=== PATIENT | male | born 1945 | race American Indian/Alaskan Native ===

== ENCOUNTER 2017-06-11 13:09 | Inpatient (IN) | payer MEDICARE ==
[2017-06-12 18:00] VITALS: BMI 29.9
[2017-06-12 18:50] LABS: HEMATOCRIT 30.7 % (35.0-51.0); MEAN CELL VOLUME 88.2 fl (80.0-94.0); MEAN CORPUSCULAR HEMOGLOBIN 28.8 pg (27.0-31.0); MEAN CORPUSCULAR HGB CONC 32.7 g/dL (33.0-37.0); RED CELL DISTRIBUTION WIDTH 15.1 % (11.5-14.5)
[2017-06-13] MEDS ORDERED: Pantoprazole 40 mg EC Tab PO SCH (06:30)
[2017-06-13 12:05] LABS: BASO # 0.1 K/uL (0.0-0.2); BASO % 1.1 % (0.0-2.0); EOS # 0.5 K/uL (0.0-0.7); EOS % 6.2 % (0.0-4.0); HEMATOCRIT 31.9 % (35.0-51.0); LYMPH # 1.2 K/uL (1.0-4.3); LYMPH % 15.7 % (20.0-40.0); MEAN CELL VOLUME 88.4 fl (80.0-94.0); MEAN CORPUSCULAR HGB CONC 32.8 g/dL (33.0-37.0); MEAN PLATELET VOLUME 9.4 fl (7.2-11.7); MONO # 0.6 K/uL (0.0-0.8); NEUT # 5.5 K/uL (1.8-7.0); NRBC % 0.1 % (0.0-0.0); RED CELL DISTRIBUTION WIDTH 15.3 % (11.5-14.5); WHITE BLOOD COUNT 7.9 K/uL (4.8-10.8)
[2017-06-13 12:22] LABS: PARTIAL THROMBOPLASTIN TIME 39.1 Seconds (25.6-37.1)
[2017-06-13 12:28] LABS: BLOOD UREA NITROGEN 41 mg/dl (9-20); CALCIUM 9.3 mg/dL (8.4-10.2); CARBON DIOXIDE 20 mmol/L (22-30); CHLORIDE 111 mmol/L (98-107); GFR AFRICAN-AMERICAN 38; GLUCOSE,RANDOM 159 mg/dL (75-110); MAGNESIUM 1.8 MG/DL (1.6-2.3); PHOSPHOROUS 3.4 mg/dl (2.5-4.5); POTASSIUM 4.8 MMOL/L (3.6-5.0); SODIUM 142 mmol/l (132-148)
[2017-06-13 13:06] VITALS: O2SAT 100
--- NOTE | 2017-06-13 13:28 | CT ---
PROCEDURE: CT scan brain dated 06/13/2017 HISTORY: Near syncope. History CVA COMPARISON: No prior study available for comparison TECHNIQUE: Axial computed tomography images were obtained through the head/brain without intravenous contrast. Radiation dose: Total exam DLP = mGy-cm. This CT exam was performed using one or more of the following dose reduction techniques: Automated exposure control, adjustment of the mA and/or kV according to patient size, and/or use of iterative reconstruction technique. FINDINGS: HEMORRHAGE: No acute parenchymal, subarachnoid or extra-axial hemorrhage. BRAIN: Moderate diffuse/confluent chronic white matter ischemic changes seen extending peripherally into the deep and subcortical white matter of both cerebral hemispheres. Chronic appearing small infarct left anterolateral basal ganglia. . In addition, there is a small to medium-sized right basal ganglia infarct that age-indeterminate though likely however clinical correlation with physical exam and history is recommended. Vascular calcifications both carotid siphons. Moderate to significant central volume loss evidenced by a disproportion enlargement of the ventricles as compared sulci. VENTRICLES: Dilatation of the lateral ventricles left greater than right felt to be secondary to central volume loss. There is mild asymmetry of the lateral ventricles left-sided which is slightly larger than the right however this is felt to be an anatomic variation. 4th ventricle exhibits relatively normal size CALVARIUM: There are no acute calvarial fractures. PARANASAL SINUSES: The visualized paranasal sinuses are well-developed and currently well-aerated. MASTOID AIR CELLS: Mastoid air complexes also well-developed and currently well-aerated OTHER FINDINGS: None. IMPRESSION: No acute intracranial hemorrhage. Moderate diffuse/ confluent chronic white matter ischemic changes as above. Chronic appearing small infarct left anterolateral basal ganglia. The small to medium-sized right basal ganglia age-indeterminate infarct however this is likely chronic. Clinical correlation with physical exam and history recommended. Moderate to significant central volume loss.
--- NOTE | 2017-06-13 13:57 | CP.PCM.PN ---
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 Objective - Vital Signs/Intake and Output Vital Signs (last 24 hours): Temp Pulse Resp BP Pulse Ox 98.9 F 93 H 18 138/78 100 06/13/17 11:35 06/13/17 13:05 06/13/17 13:05 06/13/17 13:05 06/13/17 13:05 - Medications Medications: Current Medications Amlodipine Besylate (Norvasc) 10 mg PO DAILY [facility] Last Admin: 06/13/17 08:39 Dose: 10 mg Apixaban (Eliquis) 5 mg PO Q12 [facility] PRN Reason: Protocol Last Admin: 06/13/17 08:39 Dose: 5 mg Aspirin (Aspirin Chewable) 81 mg PO DAILY [facility] Last Admin: 06/13/17 08:40 Dose: 81 mg Atorvastatin Calcium (Lipitor) 40 mg PO HS [facility] Last Admin: 06/12/17 21:08 Dose: 40 mg Lactic Acid (Lac-Hydrin 12% Lotion (225 G)) 1 applic TOP Q12 [facility] Last Admin: 06/13/17 08:38 Dose: 1 applic Lisinopril (Zestril) 10 mg PO DAILY [facility] Last Admin: 06/13/17 08:39 Dose: 10 mg Pantoprazole Sodium (Protonix Ec Tab) 40 mg PO 0630 [facility] Last Admin: 06/13/17 06:05 Dose: 40 mg - Labs Labs: 06/13/17 11:50 06/13/17 11:50 PT 15.7 Seconds (9.8-13.1) H 06/13/17 11:50 INR 1.5 (0.9-1.2) H 06/13/17 11:50 APTT 39.1 Seconds (25.6-37.1) H 06/13/17 11:50 - Head Exam Head Exam: ATRAUMATIC, NORMAL INSPECTION, NORMOCEPHALIC - Eye Exam Eye Exam: EOMI, Normal appearance, PERRL Pupil Exam: NORMAL ACCOMODATION - ENT Exam ENT Exam: Mucous Membranes Moist, Normal Exam - Neck Exam Neck Exam: Normal Inspection - Respiratory Exam Respiratory Exam: NORMAL BREATHING PATTERN - Cardiovascular Exam Cardiovascular Exam: REGULAR RHYTHM - GI/Abdominal Exam GI & Abdominal Exam: Soft, Normal Bowel Sounds - Rectal Exam Rectal Exam: NORMAL INSPECTION - Exam External exam: NORMAL EXTERNAL EXAM - Extremities Exam Extremities Exam: Normal Capillary Refill, Normal Inspection - Back Exam Back Exam: NORMAL INSPECTION - Neurological Exam Neurological Exam: Alert, Awake Neuro motor strength exam: Left Upper Extremity: 3, Right Upper Extremity: 3, Left Lower Extremity: 3, Right Lower Extremity: 3 - Psychiatric Exam Psychiatric exam: Normal Affect, Normal Mood - Skin Skin Exam: Dry, Normal Color Assessment and Plan - Assessment and Plan (Free Text) Assessment: Acute REhab CVA pt, ot , rec therapy
--- NOTE | 2017-06-13 14:03 | CP.PCM.PN ---
Subjective - Date & Time of Evaluation Date of Evaluation: 06/13/17 Time of Evaluation: 11:30 - Subjective Subjective: no acute complaints Objective - Vital Signs/Intake and Output Vital Signs (last 24 hours): Temp Pulse Resp BP Pulse Ox 98.9 F 93 H 18 138/78 100 06/13/17 11:35 06/13/17 13:05 06/13/17 13:05 06/13/17 13:05 06/13/17 13:05 - Medications Medications: Current Medications Amlodipine Besylate (Norvasc) 10 mg PO DAILY [facility] Last Admin: 06/13/17 08:39 Dose: 10 mg Apixaban (Eliquis) 5 mg PO Q12 [facility] PRN Reason: Protocol Last Admin: 06/13/17 08:39 Dose: 5 mg Aspirin (Aspirin Chewable) 81 mg PO DAILY [facility] Last Admin: 06/13/17 08:40 Dose: 81 mg Atorvastatin Calcium (Lipitor) 40 mg PO HS [facility] Last Admin: 06/12/17 21:08 Dose: 40 mg Lactic Acid (Lac-Hydrin 12% Lotion (225 G)) 1 applic TOP Q12 [facility] Last Admin: 06/13/17 08:38 Dose: 1 applic Lisinopril (Zestril) 10 mg PO DAILY [facility] Last Admin: 06/13/17 08:39 Dose: 10 mg Pantoprazole Sodium (Protonix Ec Tab) 40 mg PO 0630 [facility] Last Admin: 06/13/17 06:05 Dose: 40 mg - Labs Labs: 06/13/17 11:50 06/13/17 11:50 PT 15.7 Seconds (9.8-13.1) H 06/13/17 11:50 INR 1.5 (0.9-1.2) H 06/13/17 11:50 APTT 39.1 Seconds (25.6-37.1) H 06/13/17 11:50 - Head Exam Head Exam: ATRAUMATIC, NORMAL INSPECTION, NORMOCEPHALIC - Eye Exam Eye Exam: EOMI, Normal appearance, PERRL Pupil Exam: NORMAL ACCOMODATION - ENT Exam ENT Exam: Mucous Membranes Moist, Normal Exam - Neck Exam Neck Exam: Normal Inspection - Respiratory Exam Respiratory Exam: NORMAL BREATHING PATTERN - Cardiovascular Exam Cardiovascular Exam: REGULAR RHYTHM - GI/Abdominal Exam GI & Abdominal Exam: Normal Bowel Sounds Physiatry Overall Plan of Care - Overall Plan of Care Estimated Length of Stay in Weeks: 2 Rehab Impairment: Mobility, Gait, Cognition, Speech, Balance, Coordination Etiologic Diagnosis: Cerebrovascular Accident - Anticipated Interventions Physical Therapy:: Yes Occupational Therapy:: Yes Speech Therapy:: Yes Recreational Therapy:: Yes Other Anticipated Intervention:: Yes - Therapy Goals Bed Mobility: Independent Ambulation: Independent Functional Positional Changes:: Independent - Functional Outcomes Functional Outcomes: good - Discharge Plan Discharge Destination: Home
--- NOTE | 2017-06-13 14:45 | PCM.RRTMUL ---
<Citlali Lopez - Last Filed: 06/13/17 15:16> GUIDANCE SERVICES COORDINATOR Nurse Assessment - Situation GUIDANCE SERVICES COORDINATOR Responder Arrival Time:: 11:35 Location:: [address] [place] [address] Room Number:: [id number] GUIDANCE SERVICES COORDINATOR Reason for Call: Looks Sicker GUIDANCE SERVICES COORDINATOR Called By: RN - IV IV Inserted during GUIDANCE SERVICES COORDINATOR?: No - Respiratory Oxygen Delivery Method:: Room Air Received Nebulizer Treatments:: No Was the Patient Ventilated with Bag/Mask 100% O2?: No Secretions Suctioned?: No Was the Patient Intubated?: No Was the Patient Placed on a Ventilator?: No - Diagnostic Test Ordered EKG:: Yes - Stat Labs Ordered GUIDANCE SERVICES COORDINATOR Stat Labs Ordered:: CBC, BMP, PT/PTT, TROPONIN GUIDANCE SERVICES COORDINATOR Other Labs Ordered:: Mg, Ph, Head CT w/o contrast CPR started during GUIDANCE SERVICES COORDINATOR?: No - Vital Signs Blood Pressure:: 138/78 Pulse Rate:: 96 Respiratory Rate:: 13 Temperature:: 98.2 F Oxygen Saturation:: 97 - [place] Coma Scale Coma Scale Eye Opening:: Spontaneous Coma Scale Motor:: Obeys Commands Movement Coma Scale Verbal:: Oriented Coma Scale Total:: 15 - Time GUIDANCE SERVICES COORDINATOR Ended Time GUIDANCE SERVICES COORDINATOR Ended:: 11:45 - Vital Signs at end of GUIDANCE SERVICES COORDINATOR Blood Pressure:: 149/82 Pulse Rate:: 95 Respiratory Rate:: 18 Temperature:: 98.2 F O2 Sat by Pulse Oximetry:: 95 - Recommendations 5) GUIDANCE SERVICES COORDINATOR Level of Care Recommendations: Remain in current setting 6) Notifications: Attending Physician - A) Initial Vital Signs: Temperature: 98.2 F Pulse Rate: 96 Respiratory Rate: 13 Oxygen Saturation: 97 Finger Stick Blood Glucose: 170 - B) Neurological Status (Select all that apply): Alert, Responsive, Oriented, Follows Commands - C) Respiratory Oxygen Delivery Method: Room Air - Constitutional Appears: Well, No Acute Distress - Head Head Exam: ATRAUMATIC, NORMOCEPHALIC - Eyes Eye Exam: EOMI, Normal appearance, PERRL. absent: Nystagmus - Respiratory Exam Respiratory Exam: Clear to Ausculation Bilateral, NORMAL BREATHING PATTERN. absent: Rales, Rhonchi, Wheezes - Cardiovascular Exam Cardiovascular Exam: REGULAR RHYTHM, +S1, +S2. absent: Murmur - GI/Abdominal Exam GI & Abdominal Exam: Soft, Normal Bowel Sounds. absent: Tenderness, Organomegaly - Neurological Exam Neurological Exam: Alert, Awake, Oriented x3 Additional exam: L arm and L leg weakness 4/5. Delayed speech. - Extremities Exam Extremities Exam: Normal Inspection. absent: Calf Tenderness, Joint Swelling, Pedal Edema Plan - A. End of GUIDANCE SERVICES COORDINATOR Vital Signs: Blood Pressure: 149/82 Pulse Rate: 95 Respiratory Rate: 18 Temperature: 98.2 F O2 Sat by Pulse Oximetry: 95 - B. Assessment of Findings&Treatment Plan GUIDANCE SERVICES COORDINATOR code called by RN for patient looks sick. 72 yo male patient with PMH of HTN,DM, Afib, CVA and CKD that was working on PT when suddenly becomes unresponsive with R eye fixed, 1 nbnb vomit, diaphoresis, patient reports feeling dizzy. Denies LOC, chest pain, palpitations, sob, headache, no fever, numbness, loss of vission, no abdominal pain or any other pain. Impression: Presyncope and vomiting in S/P CVA patient. EKG Acutecheck cbc, bmp, pt/ptt, Mg, Phosphorus troponins Head ct w/o contrast. <Sravani Vasquez - Last Filed: 06/13/17 19:04> Attending/Attestation - Attestation I have personally seen and examined this patient.: Yes I have fully participated in the care of the patient.: Yes I have reviewed all pertinent clinical information, including history, physical exam and plan: Yes Notes (Text): 06/13/17 19:04 seen and examined with resident, agree [facility] findings and plan as above.
[2017-06-13 15:08] VITALS: RESP 18
[2017-06-13 18:12] VITALS: BP 150/93; PULSE 105; TEMP 97.3
[2017-06-13] MEDS ORDERED: Metoprolol Succinate 25 mg XL Tab PO SCH (21:00)
--- NOTE | 2017-06-13 22:43 | CON ---
DATE: PODIATRY CONSULTATION HISTORY OF PRESENT ILLNESS: The patient is a 72-year-old black male admitted for acute inpatient rehab program. At present, the patient is doing fine, diagnosis of acute CVA, ICD code 01.1, with a past history of hypertension, diabetes, atrial fibrillation, urinary retention, left hip pain, and hyponatremia. SOCIAL HISTORY: No history of drinking. No history of smoking. ALLERGIES: NO KNOWN ALLERGIES. FUNCTIONAL STATUS: The patient was independent with most activities previously at home. REVIEW OF SYSTEMS: The patient with mild left-sided weakness. No other acute complaints at present. PHYSICAL EXAMINATION: VITAL SIGNS: Stable. NECK: Supple. CHEST: Symmetrical. HEART: Sounds S1 and S2. ABDOMEN: Benign. EXTREMITIES: No clubbing, cyanosis, or edema. NEUROLOGIC: The patient is alert and tired. Cranial nerves II-XII intact, following commands. Left upper and left lower extremity: Tone normal, range of motion is functional, and muscle strength is 3+. Right upper and right lower extremity: Tone normal, range of motion is functional, and muscle strength is good. Sensation to pinprick and light touch intact. Deep tendon reflexes 2+ bilaterally. Other systems are negative. IMPRESSION: Acute cerebrovascular accident, ICD code of 01.1; hypertension; diabetes; atrial fibrillation; urinary incontinence; and hyponatremia. PLAN: For physical, occupational, recreational, and speech therapy for range of motion strengthening, transfers, ambulation, and gait training. Estimated length of stay for this patient is 2 to 2-1/2 weeks. Anticipated discharge plan is to go back to live at home with supportive services. Treatment plan is for physical and occupational therapy and speech therapy. Goals are for modified independence, independence with bed mobility, independence with supervision for functional positional changes, independence with supervision for simple transfers, supervision and contact guard for complex transfers, and independence with supervision for ambulation with assistive devices, and supervision and contact guard for elevation. Walker Deluna MD
--- NOTE | 2017-06-14 03:13 | CON ---
NEUROLOGY CONSULTATION REASON FOR CONSULTATION: Recent stroke and episode of passing out. HISTORY OF PRESENTING ILLNESS: The patient is a 72-year-old male, who was admitted in the rehabilitation facility in [facility] after apparently he had a stroke. The patient was admitted in [facility] after he had weakness on the left side of the body. The patient also had difficulty with speaking. The patient had MRI of the brain done in [facility], which shows acute to subacute infarct involving the right garcia radiata and upper basal ganglia corresponding to the area of low density seen on the CT. The patient had a complete workup done, and he was transferred to [facility] for rehabilitation. While in the rehabilitation unit this morning as he was getting therapy, he felt lightheaded and he passed out. He did not have any chest pain or palpitation. He was unconscious for about 2 minutes. He had no abnormal movements noted. At the moment, he feels fine. REVIEW OF SYSTEMS: Denies any headache, dizziness, chest pain, shortness of breath, abdominal pain, constipation, diarrhea, dysuria, pyuria, cough, or sputum production. PAST MEDICAL HISTORY: Includes hypercholesterolemia and hypertension. MEDICATIONS: His medications at home included lisinopril, Protonix, Lipitor, aspirin, Eliquis, and Norvasc. He is on Eliquis for atrial fibrillation. ALLERGIES: No known drug allergies. SOCIAL HISTORY: Denies smoking, use of alcohol, or use of any illicit drugs. FAMILY HISTORY: Reviewed and noncontributory. PHYSICAL EXAMINATION: GENERAL: The patient is an elderly male lying on the bed, in no acute distress. VITAL SIGNS: His blood pressure is 149/82, heart rate is 95 per minute, breathing at the rate of 16 per minute, and temperature is 98.2 degrees Fahrenheit. HEENT: Head is normocephalic and atraumatic. NECK: Supple. There are no carotid bruits. LUNGS: Clear. CARDIOVASCULAR: S1 and S2 audible. No murmurs. ABDOMEN: Soft and nontender. Bowel sounds present. NEUROLOGIC: Mental status; the patient is awake, alert and oriented to time, place and person. His speech is fine. Naming and repetition is normal. Memory and inclination are intact. Cranial nerve examination; pupils are 3 mm bilaterally reactive to light. Visual naranjo are full. Extraocular movements are intact. There is slight decrease in nasolabial fold on the left side. Palate is upgoing bilaterally and tongue is midline. Motor examination; tone is normal. There is mild left-sided pronator drift. Otherwise, power is 4/5 all over. Reflexes 1+ and symmetrical. Plantars upgoing on the left side and downgoing on the right side. Cerebellar examination; [id number] shows no dysmetria. Sensory examination intact to soft touch and pinprick. Gait is deferred at the moment. LABORATORY DATA: Reviewed shows WBC of 7.9, hemoglobin 10.5, hematocrit 31.9, and platelets of 316. Sodium is 142, potassium 4.8, chloride 111, carbon dioxide contained 20, BUN of 41, creatinine of 2.1, and glucose of 159. He had repeat CT head done after he passed out this morning, and it showed no acute intracranial hemorrhage, moderate diffuse chronic white matter ischemic changes, chronic-appearing small infarct, left anterolateral basal ganglia. No hemorrhage. IMPRESSION: 1. Syncope, rule out any seizure versus cardiac arrhythmia. 2. Cerebrovascular accident. RECOMMENDATIONS: 1. The patient had an electroencephalogram done, which is normal. 2. The patient to have cardiac monitoring to rule out any cardia arrhythmias. 3. The patient is to be continued on anticoagulation for his underlying atrial fibrillation and recent stroke. 4. The patient also to be continued on statin. 5. The patient is apparently being transferred to an acute care facility for cardiac monitoring, and once the patient is cleared from cardiology stand point, he may be transferred back to the acute rehab care service. Thank you for the opportunity to participate in the care of this patient. Neri Larios MD
--- NOTE | 2017-06-14 09:13 | CARD ---
APPROVED REPORT EKG Measurement Heart [id number] <Conclusion> Atrial flutter with variable AV block Cannot rule out Inferior infarct, age undetermined Abnormal ECG
--- NOTE | 2017-06-14 09:18 | CARD ---
APPROVED REPORT EKG Measurement Heart [id number] <Conclusion> Atrial Flutter Incomplete right bundle branch block T wave abnormality, consider inferior ischemia Prolonged QT Abnormal ECG
--- NOTE | 2017-06-14 13:58 | EEG ---
DATE: INTRODUCTION: This is a digitally recorded EEG monitoring using standard EEG montages. Background rhythm of the EEG shows a background activity of 8 Hz alpha activity in parieto-occipital region. The EEG activity is bilaterally symmetrical and synchronized. There is attenuation of the background activity on eye opening. There is moderate amount of myogenic artifact noticed in this EEG recording. Abnormal potential, no spike, sharp waves or focal slowing was seen. Photic stimulation and hyperventilation. Photic stimulation did not reveal any abnormality. Hyperventilation was not performed. IMPRESSION: Normal electroencephalogram. No epileptiform activity seen in this electroencephalogram recording. Neri Larios MD
--- NOTE | 2017-06-17 09:46 | DS ---
REASON FOR ADMISSION: This is a 72 years old -[place] male, was admitted to acute rehabilitation unit at [facility], post discharge from [facility] for acute CVA. COURSE OF HOSPITALIZATION: Patient was admitted to acute rehab floor. Patient has been on physical therapy and he was participating in physical therapy for more than an hour on today. Patient started to become diaphoretic and obtunded and he vomited once. Blood work and EKG was done that showed that the patient has atrial flutter with heart rate of about 90 per minute. Patient also found to have elevation of BUN and creatinine. Patient was discharged from acute rehabilitation unit to emergency room for close observation and readmitting patient to telemetry floor with Cardiology and Neurology evaluation. FINAL DIAGNOSES: 1. Acute cerebrovascular accident with left-sided hemiparesis. 2. Atrial flutter with rapid ventricular rate. 3. Hypertension. 4. Near syncope. Speedy Martinez MD
== END 2017-06-13 19:30 | disposition short-term general hospital (02) | DRG 57 ==
PROVIDERS: ADMIT Internal Medicine; ATTEND Internal Medicine
PROC: F07Z9FZ Gait Training/Functional Ambulation Treatment using Assistive, Adaptive, Supportive or Protective Equipment (ICD-10-PCS; principal; 2017-06-12)
PROC: F06Z6ZZ Communicative/Cognitive Integration Skills Treatment (ICD-10-PCS; 2017-06-12)
PROC: F08Z4ZZ Home Management Treatment (ICD-10-PCS; 2017-06-12)
DX: I69.354 Hemiplegia and hemiparesis following cerebral infarction affecting left non-dominant side (principal); E87.1 Hypo-osmolality and hyponatremia; I48.91 Unspecified atrial fibrillation; E11.9 Type 2 diabetes mellitus without complications; I69.328 Other speech and language deficits following cerebral infarction; I10 Essential (primary) hypertension; R55 Syncope and collapse; R47.9 Unspecified speech disturbances; R32 Unspecified urinary incontinence; E78.00 Pure hypercholesterolemia, unspecified

== ENCOUNTER 2017-06-13 18:48 | Inpatient (IN) | payer MEDICARE ==
--- NOTE | 2017-06-13 19:29 | ED PDOC ---
Syncope/Near Syncope/Dizziness Time Seen by Provider: 06/13/17 18:57 Chief Complaint (Nursing): Syncope Chief Complaint (Provider): Syncope History Per: Patient, Other (Witnesses from rehab) History/Exam Limitations: no limitations Onset/Duration Of Symptoms: Mins (Prior to arrival) Current Symptoms Are (Timing): Gone Now Additional Complaint(s): Nilesh is a 72 y/o male who was transferred to the ED from rehab due to witnessed syncopal episode lasting 2-3 seconds. No seizure activity. Patient denies headache. No new weakness, pain, or palpitations. Patient is s/p CVA and has a history of atrial fibrillation. Of note, patient seen by Neurologist while in rehab with EEG and CT Head, revealing no acute changes. PMD: Speedy Martinez Past Medical History Reviewed: Historical Data, Nursing Documentation, Vital Signs Vital Signs: Last Vital Signs Temp 97.8 F 06/13/17 19:00 Pulse 94 H 06/13/17 19:00 Resp 18 06/13/17 19:00 BP 150/90 06/13/17 19:00 Pulse Ox 99 06/13/17 19:00 - Medical History PMH: Atrial Fibrillation, CVA, HTN, Chronic Kidney Disease - Family History Family History: States: Unknown Family Hx - Home Medications Home Medications: Ambulatory Orders Medication Instructions Recorded Aspirin [Aspirin Chewable] 81 mg PO DAILY 06/11/17 Atorvastatin [Lipitor] 40 mg PO HS 06/11/17 Pantoprazole Sodium [Protonix] 40 mg PO 0630 06/11/17 amLODIPine [Norvasc] 10 mg PO DAILY 06/11/17 Apixaban [Eliquis] 5 mg PO Q12 06/12/17 Lisinopril [Zestril] 10 mg PO DAILY 06/12/17 - Allergies Allergies/Adverse Reactions: Allergies Allergy/AdvReac Type Severity Reaction Status Date / Time No Known Allergies Allergy Verified 06/12/17 17:54 Review of Systems ROS Statement: Except As Marked, All Systems Reviewed And Found Negative Cardiovascular: Negative for: Palpitations Musculoskeletal: Negative for: Other (Pain) Neurological: Positive for: Other (Witnessed syncopal episode). Negative for: Weakness (new), Seizures, Headache Physical Exam - Reviewed Nursing Documentation Reviewed: Yes Vital Signs Reviewed: Yes - Physical Exam Appears: Positive for: Non-toxic, No Acute Distress Head Exam: Positive for: ATRAUMATIC, NORMAL INSPECTION, NORMOCEPHALIC Skin: Positive for: Normal Color, Warm, Dry Eye Exam: Positive for: EOMI, Normal appearance, PERRL Neck: Positive for: Normal, Painless ROM Cardiovascular/Chest: Positive for: Regular Rate, Rhythm. Negative for: Murmur Respiratory: Positive for: Normal Breath Sounds. Negative for: Accessory Muscle Use, Respiratory Distress Gastrointestinal/Abdominal: Positive for: Normal Exam, Soft. Negative for: Tenderness Back: Positive for: Normal Inspection. Negative for: Vertebral Tenderness Extremity: Positive for: Normal ROM. Negative for: Tenderness, Deformity, Swelling Neurologic/Psych: Positive for: Alert (awake), Oriented, Other (Left sided weakness due to old CVA) - Laboratory Results Result Diagrams: 06/13/17 19:21 - ECG O2 Sat by Pulse Oximetry: 99 (RA) Pulse Ox Interpretation: Normal Medical Decision Making Medical Decision Making: Time: 18:57 Impression: Syncope Initial Plan: --CMP --Troponin I --CBC --EKG --Admit to hospital routine: Observation in telemetry for syncope, under the care of Dr. Speedy Martinez. Scribe Attestation: Documented by Jess Nevarez, acting as a scribe for Rian Narvaez MD Provider Scribe Attestation: All medical record entries made by the Scribe were at my direction and personally dictated by me. I have reviewed the chart and agree that the record accurately reflects my personal performance of the history, physical exam, medical decision making, and the department course for this patient. I have also personally directed, reviewed, and agree with the discharge instructions and disposition. Disposition - Clinical Impression Clinical Impression: Syncope - Patient ED Disposition Is Patient to be Admitted: Yes - Disposition Disposition Time: 19:15 Condition: FAIR - Pt Status Changed To: Hospital Disposition Of: Observation - POA Present On Arrival: None
[2017-06-13 19:34] LABS: BASO # 0.1 K/uL (0.0-0.2); BASO % 0.7 % (0.0-2.0); EOS # 0.4 K/uL (0.0-0.7); EOS % 3.7 % (0.0-4.0); LYMPH # 0.9 K/uL (1.0-4.3); LYMPH % 8.7 % (20.0-40.0); MEAN CELL VOLUME 88.7 fl (80.0-94.0); MEAN CORPUSCULAR HEMOGLOBIN 28.7 pg (27.0-31.0); MEAN CORPUSCULAR HGB CONC 32.3 g/dL (33.0-37.0); MEAN PLATELET VOLUME 9.7 fl (7.2-11.7); MONO # 0.6 K/uL (0.0-0.8); MONO % 5.3 % (0.0-10.0); NEUT # 8.7 K/uL (1.8-7.0); NEUT % 81.6 % (50.0-75.0); NRBC % 0.1 % (0.0-0.0); PLATELET COUNT 312 K/uL (130-400); RED CELL DISTRIBUTION WIDTH 15.5 % (11.5-14.5); WHITE BLOOD COUNT 10.7 K/uL (4.8-10.8)
[2017-06-13 21:03] LABS: ALB/GLOB RATIO 0.8 (1.0-2.1); ALKALINE PHOSPHATASE 95 U/L (38-126); ALT/SGPT 40 U/L (21-72); AST/SGOT 51 U/L (17-59); BILIRUBIN,TOTAL 0.7 mg/dl (0.2-1.3); BLOOD UREA NITROGEN 40 mg/dl (9-20); CALCIUM 8.7 mg/dL (8.4-10.2); CARBON DIOXIDE 18 mmol/L (22-30); GFR AFRICAN-AMERICAN 38; GLUCOSE,RANDOM 156 mg/dL (75-110); POTASSIUM 5.1 MMOL/L (3.6-5.0); SODIUM 140 mmol/l (132-148); TOTAL PROTEIN 8.5 G/DL (6.3-8.2)
[2017-06-13 21:39] LABS: EOSINOPHIL 3 % (0-7); NEUTROPHIL 77 % (42-75); TOTAL CELLS COUNTED 100
[2017-06-13 21:45] LABS: CHLORIDE 111 mmol/L (98-107)
[2017-06-14] MEDS: Sodium Chloride 0.9% 1,000 ML IV SCH ×2 (00:06→16:44)
[2017-06-14] MEDS: Pantoprazole 40 mg EC Tab PO SCH (05:59)
[2017-06-14 06:55] LABS: ALB/GLOB RATIO 0.8 (1.0-2.1); ALKALINE PHOSPHATASE 98 U/L (38-126); ALT/SGPT 42 U/L (21-72); AST/SGOT 41 U/L (17-59); BILIRUBIN,TOTAL 0.5 mg/dl (0.2-1.3); BLOOD UREA NITROGEN 38 mg/dl (9-20); CALCIUM 9.3 mg/dL (8.4-10.2); CARBON DIOXIDE 19 mmol/L (22-30); CHLORIDE 112 mmol/L (98-107); CHOLESTEROL 142 mg/dL (0-199); GFR AFRICAN-AMERICAN 38; GLUCOSE,RANDOM 127 mg/dL (75-110); POTASSIUM 4.4 MMOL/L (3.6-5.0); SODIUM 144 mmol/l (132-148); TOTAL PROTEIN 8.5 G/DL (6.3-8.2)
[2017-06-14 07:06] LABS: HEMATOCRIT 30.3 % (35.0-51.0); MEAN CELL VOLUME 91.6 fl (80.0-94.0); MEAN CORPUSCULAR HEMOGLOBIN 30.4 pg (27.0-31.0); MEAN CORPUSCULAR HGB CONC 33.1 g/dL (33.0-37.0); RED CELL DISTRIBUTION WIDTH 15.3 % (11.5-14.5); WHITE BLOOD COUNT 8.1 K/uL (4.8-10.8)
[2017-06-14 07:24] LABS: THYROID STIMULATING HORMONE 1.86 mIU/ML (0.46-4.68)
--- NOTE | 2017-06-14 10:53 | CP.PCM.CON ---
History of Present Illness - History of Present Illness History of Present Illness: THE PATIENT IS A 72 YEAR OLD MALE WITH A HISTORY OF ATRIAL FIBRILLATION, HYPERTENSION, HYPERLIPIDEMIA AND DM. HE HAD A RECENT CVA WITH LEFT SIDED WEAKNESS AND WAS ADMITTED TO [place] [facility] [place] AND WAS DISCHARGED TO [facility]. HE WAS AT REHAB YESTERDAY AND HAD WHAT WAS WITNESSED LOC FOR ABOUT A MINUTE AND A HALF ACCORDING TO THE REHAB STAFF AND HE WAS SENT TO THE ER AND ADMITTED TO ON TELEMETRY. UPON QUESTIONING, THE PATIENT TELLS ME THAT HE DID NOT HAVE A TOTAL LOC BUT WAS WEAK AND FELL BUT BUT THIS IS IN CONTRAST TO THE WITNESSED EPISODE BY THE REHAB STAFF. HE DENIES CHEST PAIN OR PALPITATIONS. CARDIOLOGY WAS ASKED TO EVALUATE AND FOLLOW. Past Patient History - Past Medical History & Family History Past Medical History?: Yes - Past Social History Smoking Status: Never Smoked - CARDIAC Hx Cardiac Disorders: Yes Hx Atrial Fibrillation: Yes Hx Hypertension: Yes - PULMONARY Hx Respiratory Disorders: No - NEUROLOGICAL Hx Neurological Disorder: Yes HX Cerebrovascular Accident: Yes - HEENT Hx HEENT Problems: Yes Other/Comment: Pt wears glasses - RENAL Hx Chronic Kidney Disease: Yes - ENDOCRINE/METABOLIC Hx Endocrine Disorders: Yes Hx Diabetes Mellitus Type 2: Yes - HEMATOLOGICAL/ONCOLOGICAL Hx Blood Disorders: No Hx AIDS: No Hx Human Immunodeficiency Virus (HIV): No - INTEGUMENTARY Hx Dermatological Problems: No - MUSCULOSKELETAL/RHEUMATOLOGICAL Hx Musculoskeletal Disorders: Yes Hx Falls: Yes Other/Comment: Chronic left hip pain - GASTROINTESTINAL Hx Gastrointestinal Disorders: No - GENITOURINARY/GYNECOLOGICAL Hx Genitourinary Disorders: Yes Hx Incontinence: Yes - PSYCHIATRIC Hx Psychophysiologic Disorder: No Hx Substance Use: No - SURGICAL HISTORY Hx Surgeries: No - ANESTHESIA Hx Anesthesia: Yes Hx Anesthesia Reactions: No Hx Malignant Hyperthermia: No Meds Allergies/Adverse Reactions: Allergies Allergy/AdvReac Type Severity Reaction Status Date / Time No Known Allergies Allergy Verified 06/12/17 17:54 - Medications Medications: Current Medications Apixaban (Eliquis) 2.5 mg PO Q12 [facility] PRN Reason: Protocol Last Admin: 06/14/17 09:05 Dose: 2.5 mg Aspirin (Aspirin Chewable) 81 mg PO DAILY [facility] Last Admin: 06/14/17 09:06 Dose: 81 mg Atorvastatin Calcium (Lipitor) 40 mg PO HS [facility] Last Admin: 06/13/17 23:55 Dose: 40 mg Sodium Chloride (Sodium Chloride 0.9%) 1,000 mls @ 60 mls/hr IV .[id number] [facility] Stop: 06/14/17 23:50 Last Admin: 06/14/17 00:06 Dose: 60 mls/hr Lisinopril (Zestril) 5 mg PO DAILY@1400 [facility] Metoprolol Tartrate (Lopressor) 12.5 mg PO Q12 [facility] Last Admin: 06/14/17 09:06 Dose: 12.5 mg Pantoprazole Sodium (Protonix Ec Tab) 40 mg PO 0630 [facility] Last Admin: 06/14/17 05:59 Dose: 40 mg Physical Exam - Respiratory Exam Respiratory Exam: Clear to Auscultation Bilateral - Cardiovascular Exam Cardiovascular Exam: Irregular Rhythm, +S1, +S2 - Additional Findings Additional findings: APPRAISER LAND ATRIAL FLUTTER AT VARIABLE RATES AND GOOD VENTRICULAR RATES NO 12 LEAD EKG IN [facility] TROPONIN NEGATIVE X 2 Results - Vital Signs Recent Vital Signs: Last Vital Signs Temp 97.8 F 06/14/17 05:10 Pulse 94 H 06/14/17 09:06 Resp 18 06/14/17 05:10 BP 164/96 H 06/14/17 09:06 Pulse Ox 100 06/14/17 05:10 - Labs Result Diagrams: 06/14/17 05:30 06/14/17 05:30 Labs: Laboratory Results - last 24 hr 06/13/17 06/13/17 06/13/17 19:21 20:40 23:19 WBC 10.7 RBC 3.50 L Hgb 10.0 L Hct 31.0 L MCV 88.7 MCH 28.7 MCHC 32.3 L RDW 15.5 H Plt Count 312 MPV 9.7 Neut % (Auto) 81.6 H Lymph % (Auto) 8.7 L Elliott % (Auto) 5.3 Eos % (Auto) 3.7 Baso % (Auto) 0.7 Neut # 8.7 H Lymph # 0.9 L Elliott # 0.6 Eos # 0.4 Baso # 0.1 Neutrophils % (Manual) 77 H Band Neutrophils % 2 Lymphocytes % (Manual) 12 L Monocytes % (Manual) 6 Eosinophils % (Manual) 3 Platelet Estimate Normal Hypochromasia (manual) Slight Poikilocytosis (manual Slight Anisocytosis (manual) Moderate Microcytosis (manual) Slight Tear Drop Cells Slight Sodium 140 Potassium 5.1 H Chloride 111 H Carbon Dioxide 18 L Anion Gap 17 BUN 40 H Creatinine 2.1 H Est GFR ( Amer) 38 Est GFR (Non-Af Amer) 31 POC Glucose (mg/dL) 171 H Random Glucose 156 H Calcium 8.7 Total Bilirubin 0.7 AST 51 ALT 40 Alkaline Phosphatase 95 Troponin I < 0.0120 Total Protein 8.5 H Albumin 3.8 Globulin 4.8 H Albumin/Globulin Ratio 0.8 L Triglycerides Cholesterol LDL Cholesterol Direct HDL Cholesterol TSH 3rd Generation 06/14/17 06/14/17 06/14/17 05:12 05:30 05:30 WBC 8.1 RBC 3.31 L Hgb 10.0 L Hct 30.3 L MCV 91.6 D MCH 30.4 MCHC 33.1 RDW 15.3 H Plt Count 312 MPV Neut % (Auto) Lymph % (Auto) Elliott % (Auto) Eos % (Auto) Baso % (Auto) Neut # Lymph # Elliott # Eos # Baso # Neutrophils % (Manual) Band Neutrophils % Lymphocytes % (Manual) Monocytes % (Manual) Eosinophils % (Manual) Platelet Estimate Hypochromasia (manual) Poikilocytosis (manual Anisocytosis (manual) Microcytosis (manual) Tear Drop Cells Sodium 144 Potassium 4.4 Chloride 112 H Carbon Dioxide 19 L Anion Gap 17 BUN 38 H Creatinine 2.1 H Est GFR ( Amer) 38 Est GFR (Non-Af Amer) 31 POC Glucose (mg/dL) 131 H Random Glucose 127 H Calcium 9.3 Total Bilirubin 0.5 AST 41 ALT 42 Alkaline Phosphatase 98 Troponin I < 0.0120 Total Protein 8.5 H Albumin 3.8 Globulin 4.7 H Albumin/Globulin Ratio 0.8 L Triglycerides 82 Cholesterol 142 LDL Cholesterol Direct 74 HDL Cholesterol 26 L TSH 3rd Generation 1.86 Assessment & Plan - Assessment and Plan (Free Text) Assessment: RECENT CVA WITH LEFT SIDED WEAKNESS WITNESSED SYNCOPE YESTERDAY ON [facility]UTE [facility] HISTORY OF ATRIAL FIBRILLATION-NOW IN ATRIAL FLUTTER HYPERTENSION HYPERLIPIDEMIA Plan: THE PATIENT WAS ADMITTED TO 4N ON TELEMETRY CONTINUE ELIQUIS, ASPIRIN, METOPROLOL, LISINOPRIL AND ATORVASTATIN 12 LEAD AND ECHOCARDIOGRAM NEUROLOGY TO SEE
--- NOTE | 2017-06-14 19:22 | CARD ---
APPROVED REPORT EXAM: Two-dimensional and M-mode echocardiogram with Doppler and color Doppler. Other Information Quality : GoodRhythm : NSR INDICATION Abnormal EKG/Arrhythmia 2D DIMENSIONS IVSd0.81 (0.7-1.1cm)LVDd3.75 (3.9-5.9cm) LVOT Diameter2.14 (1.8-2.4cm)PWd1.19 (0.7-1.1cm) IVSs1.39 (0.8-1.2cm)LVDs3.16 (2.5-4.0cm) FS (%) 15.8 %PWs1.44 (0.8-1.2cm) M-Mode DIMENSIONS Left Atrium (MM)4.26 (2.5-4.0cm)IVSd0.97 (0.7-1.1cm) Aortic Root3.32 (2.2-3.7cm)LVDd4.56 (4.0-5.6cm) Aortic Cusp Exc.2.32 (1.5-2.0cm)PWd1.12 (0.7-1.1cm) IVSs1.47 cmFS (%) 25 % LVDs3.41 (2.0-3.8cm)PWs1.41 cm Mitral Valve E/A ratio0.0 TDI E/Lateral E'0.0E/Medial E'0.0 Pulmonary Valve PV Peak Jujfbkia22.0cm/s LEFT VENTRICLE The left ventricle is normal size. There is normal left ventricular wall thickness. The left ventricular function is normal. The left ventricular ejection fraction is 50-55%. There is normal LV segmental wall motion. Transmitral Doppler flow pattern is Grade IV-fixed restrictive diastolic dysfunction. No left ventricle thrombus noted on this study. There is no ventricular septal defect visualized. There is no left ventricular aneurysm. There is no mass noted in the left ventricle. RIGHT VENTRICLE The right ventricle is normal size. There is normal right ventricular wall thickness. The right ventricular systolic function is normal. ATRIA The left atrium is mildly dilated. The right atrium size is normal. The interatrial septum is intact with no evidence for an atrial septal defect. AORTIC VALVE The aortic valve is mildly sclerotic. No aortic regurgitation is present. There is no aortic valvular stenosis. There is no aortic valvular vegetation. MITRAL VALVE Mitral annular calcification is moderate to severe. The posterior leaflet is calcified. There is no evidence of mitral valve prolapse. There is no mitral valve stenosis. There is no mitral valve regurgitation noted. TRICUSPID VALVE The tricuspid valve is normal in structure and function. There is no tricuspid valve regurgitation noted. There is no tricuspid valve prolapse or vegetation. There is no tricuspid valve stenosis. PULMONIC VALVE The pulmonary valve is normal in structure and function. There is no pulmonic valvular regurgitation. There is no pulmonic valvular stenosis. GREAT VESSELS The aortic root is normal in size. The ascending aorta is normal in size. The IVC is normal in size and collapses >50% with inspiration. PERICARDIAL EFFUSION The pericardium appears normal. There is no pleural effusion. <Conclusion> Normal LV Systolic Function Aortic Valve Sclerosis Mild Left Atria Enlargement Restrictive Diastolic Filling Pattern
--- NOTE | 2017-06-14 19:54 | CARD ---
APPROVED REPORT EKG Measurement Heart [id number] [id number] <Conclusion> Atrial Flutter
[2017-06-15] MEDS: Pantoprazole 40 mg EC Tab PO SCH (06:12)
--- NOTE | 2017-06-15 16:23 | CP.PCM.PN ---
Subjective - Date & Time of Evaluation Date of Evaluation: 05/15/17 Time of Evaluation: 15:00 - Subjective Subjective: THE PATIENT DENIES CHEST PAIN, SOB OR FURTHER SYNCOPE Objective - Vital Signs/Intake and Output Vital Signs (last 24 hours): Temp Pulse Resp BP Pulse Ox 97.5 F L 96 H 18 112/72 100 06/15/17 12:42 06/15/17 14:00 06/15/17 12:42 06/15/17 14:00 06/15/17 12:42 - Medications Medications: Current Medications Apixaban (Eliquis) 2.5 mg PO Q12 [facility] PRN Reason: Protocol Last Admin: 06/15/17 09:23 Dose: 2.5 mg Aspirin (Aspirin Chewable) 81 mg PO DAILY [facility] Last Admin: 06/15/17 09:21 Dose: 81 mg Atorvastatin Calcium (Lipitor) 40 mg PO HS [facility] Last Admin: 06/14/17 21:34 Dose: 40 mg Lisinopril (Zestril) 5 mg PO DAILY@1400 [facility] Last Admin: 06/15/17 14:00 Dose: 5 mg Metoprolol Tartrate (Lopressor) 12.5 mg PO Q12 [facility] Last Admin: 06/15/17 09:23 Dose: 12.5 mg Pantoprazole Sodium (Protonix Ec Tab) 40 mg PO 0630 [facility] Last Admin: 06/15/17 06:12 Dose: 40 mg - Labs Labs: 06/14/17 05:30 06/14/17 05:30 - Respiratory Exam Respiratory Exam: Clear to Ausculation Bilateral - Cardiovascular Exam Cardiovascular Exam: Irregular Rhythm, +S1, +S2 - Additional Findings Additional findings: 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
--- NOTE | 2017-06-15 17:58 | PN ---
DATE: 06/15/2017 SUBJECTIVE: The patient is see today, 06/15/2017. He is not in any cardiopulmonary distress and no further episodes of syncope and presyncope. PHYSICAL EXAMINATION: VITAL SIGNS: Blood pressure 112/72, temperature 97.5, respiratory rate 18, pulse 96. HEENT: Pupils are equal and reactive to light. Normal-appearing mucosa of the conjunctivae, oropharynx, and nasal membrane mucosa. NECK: Supple. No JVD. No carotid bruit. No lymph node. No thyromegaly. CHEST AND LUNGS: Bilateral symmetrical expansion. Good air exchange. No rales. No rhonchi. CARDIOVASCULAR SYSTEM: PMI not localized. S1 and S2. No additional heart sounds. ABDOMEN: Normoactive bowel sounds. No tenderness. No organomegaly. No masses. EXTREMITIES: No cyanosis. No clubbing. No edema. SOCIAL ORGANIZATION PROFESSOR: Alert, awake, and oriented x2 and the patient has slight left-sided hemiparesis. ASSESSMENT: 1. Presyncope. 2. Atrial flutter fibrillation. 3. Status post cerebrovascular accident. 4. Hypertension. PLAN: Follow recommendations of urology and cardiology. Repeat EKG. Continue current management. Speedy Martinez MD
--- NOTE | 2017-06-15 23:37 | HP ---
This is a late entry for history and physical done on 06/14/2017. HISTORY OF PRESENT ILLNESS: The patient is a 72-year-old male who was at acute rehabilitation in [facility]. The patient sustained an attack of diaphoresis and lethargy followed by vomiting after an hour of physical therapy on the day of admission. The patient was evaluated and found to be in atrial flutter. Subsequently, the patient was transferred to emergency room for evaluation and admitted to telemetry floor for further management. The patient denied having any chest pain or shortness of breath at that time. The patient denied having any previous similar episodes. Other review of systems is negative. ALLERGIES: NO KNOWN ALLERGIES. MEDICATIONS: Amlodipine 10 mg once a day, Protonix 40 mg daily, lisinopril 10 mg daily, atorvastatin 40 mg daily, aspirin 81 mg daily, Eliquis 5 mg q.12h. SOCIAL HISTORY: Denied smoking, EtOH, or substance abuse. FAMILY HISTORY: Noncontributory. PAST MEDICAL HISTORY: CVA with left-sided hemiparesis; hypertension; atrial fibrillation, on anticoagulation. PHYSICAL EXAMINATION: GENERAL: The patient is in bed, comfortable, not in any cardiopulmonary distress at the time of this examination. VITAL SIGNS: Blood pressure was 147/88, temperature 97.8, respiratory rate 18, and pulse 89. HEENT: Pupils are equal, reactive to light. Normal-appearing mucosa of the conjunctiva, oropharyngeal and nasal membrane mucosa. NECK: Supple. No JVD. No carotid bruit. No lymph node. No thyromegaly. CHEST AND LUNGS: Bilateral symmetrical expansion. Good air exchange. No rales, no rhonchi. CARDIOVASCULAR SYSTEM: PMI not localized. S1 and S2. No additional sounds. ABDOMEN: Normoactive bowel sounds. No tenderness. No organomegaly. No masses. EXTREMITIES: No cyanosis. No clubbing. No edema. CENTRAL NERVOUS SYSTEM: Alert, awake, oriented x2 and the patient has left-sided tracey-weakness compared to the right side. ASSESSMENT: 1. Presyncope. 2. Atrial flutter with rapid ventricular rate. 3. Hypertension. 4. Cerebrovascular accident with left-sided hemiparesis. PLAN: Continue monitor, follow up recommendations of Cardiology and Neurology. Neurocheck every 4 hours. Decrease amlodipine and start beta carrie. Check TSH. [facility] MD Juan [facility] # [id number]
[2017-06-16] MEDS: Pantoprazole 40 mg EC Tab PO SCH (05:44)
[2017-06-17] MEDS: Pantoprazole 40 mg EC Tab PO SCH (06:40)
--- NOTE | 2017-06-17 09:49 | CP.PCM.PN ---
Subjective - Date & Time of Evaluation Date of Evaluation: 06/17/17 Time of Evaluation: 08:00 - Subjective Subjective: NO CHEST PAIN OR SOB Objective - Vital Signs/Intake and Output Vital Signs (last 24 hours): Temp Pulse Resp BP Pulse Ox 97.8 F 94 H 18 174/90 H 99 06/17/17 08:06 06/17/17 09:27 06/17/17 08:06 06/17/17 09:27 06/17/17 08:06 - Medications Medications: Current Medications Apixaban (Eliquis) 2.5 mg PO Q12 [facility] PRN Reason: Protocol Last Admin: 06/17/17 09:26 Dose: 2.5 mg Aspirin (Aspirin Chewable) 81 mg PO DAILY [facility] Last Admin: 06/17/17 09:26 Dose: 81 mg Atorvastatin Calcium (Lipitor) 40 mg PO HS [facility] Last Admin: 06/16/17 21:56 Dose: 40 mg Lisinopril (Zestril) 5 mg PO DAILY@1400 [facility] Last Admin: 06/16/17 13:32 Dose: 5 mg Metoprolol Tartrate (Lopressor) 12.5 mg PO Q12 [facility] Last Admin: 06/17/17 09:27 Dose: 12.5 mg Pantoprazole Sodium (Protonix Ec Tab) 40 mg PO 0630 [facility] Last Admin: 06/17/17 06:40 Dose: 40 mg - Labs Labs: 06/14/17 05:30 06/14/17 05:30 - Respiratory Exam Respiratory Exam: Clear to Ausculation Bilateral - Cardiovascular Exam Cardiovascular Exam: Irregular Rhythm, +S1, +S2 - Additional Findings Additional findings: LENS BLANK GAUGER ATRIAL FLUTTER Assessment and Plan - Assessment and Plan (Free Text) Assessment: CVA ATRIAL FIBRILLATION/FLUTTER HYPERTENSION Plan: CONTINUE ASPIRIN, ELIQUIS, METOPROLOL, ATORVASTATIN AND LISINOPRIL OK TO SEND BACK TO ACUTE REHAB FROM [facility]
--- NOTE | 2017-06-17 11:07 | CARD ---
APPROVED REPORT EKG Measurement Heart [id number] [place] 190P [id number] <Conclusion> Atrial Flutter
[2017-06-18] MEDS: Pantoprazole 40 mg EC Tab PO SCH (05:45)
--- NOTE | 2017-06-18 07:19 | PN ---
DATE: 06/17/2017 PHYSICAL EXAMINATION: VITAL SIGNS: He is in sinus rhythm with heart rate in the range of 58, temperature 98.4, respiratory rate 20, and blood pressure 127/67. HEENT: Pupils equal, reactive to light. Normal-appearing mucosa of the conjunctivae, oropharyngeal and nasal membrane mucosa. NECK: Supple. No JVD. No carotid bruits. No lymph nodes. No thyromegaly. CHEST AND LUNGS: Bilateral symmetrical expansion. Good air exchange. No rales. No rhonchi. CARDIOVASCULAR SYSTEM: PMI not localized. S1 and S2. No additional sounds. ABDOMEN: Normoactive bowel sounds. No tenderness. No organomegaly. No masses. EXTREMITIES: No cyanosis, no clubbing, no edema. CENTRAL NERVOUS SYSTEM: Alert, awake, oriented x2. No neurological deficit could be appreciated except for left-sided weakness. ASSESSMENT: Cerebrovascular accident with left-sided hemiparesis, paroxysmal atrial fibrillation, and hypertension. PLAN: Continue physical therapy and discharge planned to acute rehabilitation. Discussed with cardiology. Mary MD Juan
[2017-06-18 08:12] VITALS: O2SAT 100
--- NOTE | 2017-06-18 10:56 | CP.PCM.PN ---
Subjective - Date & Time of Evaluation Date of Evaluation: 06/18/17 Time of Evaluation: 09:30 - Subjective Subjective: THE PATIENT GOT DIZZY AND LIGHTHEADED WHEN HE TRIED TO STAND UP YESTERDAY Objective - Vital Signs/Intake and Output Vital Signs (last 24 hours): Temp Pulse Resp BP Pulse Ox 98.2 F 100 H 20 163/95 H 100 06/18/17 08:11 06/18/17 09:05 06/18/17 08:11 06/18/17 09:05 06/18/17 08:11 - Medications Medications: Current Medications Apixaban (Eliquis) 2.5 mg PO Q12 [facility] PRN Reason: Protocol Last Admin: 06/18/17 09:16 Dose: 2.5 mg Aspirin (Aspirin Chewable) 81 mg PO DAILY [facility] Last Admin: 06/18/17 09:16 Dose: 81 mg Atorvastatin Calcium (Lipitor) 40 mg PO HS [facility] Last Admin: 06/17/17 21:22 Dose: 40 mg Lisinopril (Zestril) 5 mg PO DAILY@1400 [facility] Last Admin: 06/17/17 14:18 Dose: 5 mg Metoprolol Tartrate (Lopressor) 12.5 mg PO Q12 [facility] Last Admin: 06/18/17 09:05 Dose: 12.5 mg Ondansetron HCl (Zofran Inj) 4 mg IVP Q6 PRN PRN Reason: Nausea/Vomiting Pantoprazole Sodium (Protonix Ec Tab) 40 mg PO 0630 [facility] Last Admin: 06/18/17 05:45 Dose: 40 mg - Labs Labs: 06/14/17 05:30 06/14/17 05:30 - Respiratory Exam Respiratory Exam: Clear to Ausculation Bilateral - Cardiovascular Exam Cardiovascular Exam: Irregular Rhythm, +S1, +S2 - Additional Findings Additional findings: 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
[2017-06-18 13:30] LABS: HEMATOCRIT 33.3 % (35.0-51.0); MEAN CELL VOLUME 89.1 fl (80.0-94.0); MEAN CORPUSCULAR HEMOGLOBIN 28.6 pg (27.0-31.0); RED CELL DISTRIBUTION WIDTH 15.6 % (11.5-14.5); WHITE BLOOD COUNT 13.3 K/uL (4.8-10.8)
[2017-06-18 13:38] LABS: CALCIUM 9.8 mg/dL (8.4-10.2)
[2017-06-18 13:39] LABS: POTASSIUM 5.5 MMOL/L (3.6-5.0)
[2017-06-18] MEDS ORDERED: Sod Polystyrene Sulf 15 gm/60 ml Oral Susp PO ONE (14:29)
--- NOTE | 2017-06-18 15:20 | RAD ---
HISTORY: leukocytosis COMPARISON: No prior. FINDINGS: LUNGS: No active pulmonary disease. PLEURA: No significant pleural effusion identified, no pneumothorax apparent. CARDIOVASCULAR: Normal. OSSEOUS STRUCTURES: No significant abnormalities. VISUALIZED UPPER ABDOMEN: Normal. OTHER FINDINGS: None. IMPRESSION: No active disease.
[2017-06-18 20:10] VITALS: BP 136/89; PULSE 96; RESP 14; TEMP 97.1
--- NOTE | 2017-06-19 02:56 | DS ---
HISTORY OF PRESENT ILLNESS: The patient is a 72-year-old male with history of multiple medical problems was admitted from acute care rehabilitation because of near syncope and paroxysmal atrial fibrillation. The patient had cardiology consultation, as well as, neurology consultation during this stay. The patient was cleared by neurologist, as well as wiring technician and the patient went back to acute rehabilitation [facility]. FINAL DIAGNOSES: Atrial fibrillation/flutter, hypertension, status post cerebrovascular accident with left-sided weakness. [facility] MD Juan
== END 2017-06-18 19:55 | DRG 309 ==
LOC: H.ER 18:48 → H.ERHOLD 18:58 → OBSVTOIN 18:58 → H.TEL 22:17
PROVIDERS: ADMIT Internal Medicine; ATTEND Internal Medicine
DX: I48.0 Paroxysmal atrial fibrillation (principal); I69.354 Hemiplegia and hemiparesis following cerebral infarction affecting left non-dominant side; E11.22 Type 2 diabetes mellitus with diabetic chronic kidney disease; I48.92 Unspecified atrial flutter; E78.5 Hyperlipidemia, unspecified; I12.9 Hypertensive chronic kidney disease with stage 1 through stage 4 chronic kidney disease, or unspecified chronic kidney disease; N18.9 Chronic kidney disease, unspecified; Z79.01 Long term (current) use of anticoagulants; Z79.899 Other long term (current) drug therapy; G89.29 Other chronic pain; M25.552 Pain in left hip; R42 Dizziness and giddiness; Z79.84 Long term (current) use of oral hypoglycemic drugs

== ENCOUNTER 2017-06-18 18:19 | Inpatient (IN) | payer MEDICARE ==
[2017-06-18 20:45] VITALS: BMI 29.9
[2017-06-19] MEDS: Pantoprazole 40 mg EC Tab PO SCH (06:49)
[2017-06-19 08:47] LABS: MEAN CELL VOLUME 89.7 fl (80.0-94.0); MEAN CORPUSCULAR HEMOGLOBIN 28.7 pg (27.0-31.0); MEAN CORPUSCULAR HGB CONC 32.1 g/dL (33.0-37.0); RED CELL DISTRIBUTION WIDTH 15.4 % (11.5-14.5); WHITE BLOOD COUNT 9.3 K/uL (4.8-10.8)
[2017-06-19 09:17] LABS: CALCIUM 9.4 mg/dL (8.4-10.2); POTASSIUM 5.3 MMOL/L (3.6-5.0)
--- NOTE | 2017-06-19 16:01 | CP.PCM.CON ---
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 He is now going down for multiple tests. He feels ok now and there does not appear to be any acute worsening of function Review of Systems - Constitutional Constitutional: absent: Anorexia, Chills - EENT Eyes: absent: Change in Vision Nose/Mouth/Throat: absent: Nasal Congestion - Cardiovascular Cardiovascular: absent: Chest Pain - Respiratory Respiratory: absent: Dyspnea - Gastrointestinal Gastrointestinal: absent: Abdominal Pain - Musculoskeletal Musculoskeletal: absent: Arthralgias - Neurological Neurological: Syncope (x2 since admission here). absent: Abnormal Movements - Psychiatric Psychiatric: absent: Anxiety Past Patient History - Past Medical History & Family History Past Medical History?: Yes - Past Social History Smoking Status: Former Smoker Alcohol: Occasional Drugs: Denies Home Situation {Lives}: With Family - CARDIAC Hx Cardiac Disorders: Yes Hx Hypertension: Yes - PULMONARY Hx Respiratory Disorders: No - NEUROLOGICAL HX Cerebrovascular Accident: Yes - HEENT Hx HEENT Problems: Yes Other/Comment: Pt uses glasses for reading. - RENAL Hx Chronic Kidney Disease: Yes Other/Comment: hx of Hyponatremia - ENDOCRINE/METABOLIC Hx Diabetes Mellitus Type 2: Yes - HEMATOLOGICAL/ONCOLOGICAL Hx Blood Disorders: No Hx AIDS: No Hx Human Immunodeficiency Virus (HIV): No - INTEGUMENTARY Hx Dermatological Problems: No - MUSCULOSKELETAL/RHEUMATOLOGICAL Hx Falls: Yes (x1) Other/Comment: hx of chronic left hip pain - GASTROINTESTINAL Hx Gastrointestinal Disorders: No - GENITOURINARY/GYNECOLOGICAL Hx Genitourinary Disorders: Yes Hx Incontinence: Yes - PSYCHIATRIC Hx Psychophysiologic Disorder: No Hx Substance Use: No - SURGICAL HISTORY Hx Surgeries: No - ANESTHESIA Hx Anesthesia: No Hx Anesthesia Reactions: (NA) Hx Malignant Hyperthermia: No Meds Allergies/Adverse Reactions: Allergies Allergy/AdvReac Type Severity Reaction Status Date / Time No Known Allergies Allergy Verified 06/18/17 20:24 - Medications Medications: Current Medications Apixaban (Eliquis) 2.5 mg PO Q12 [facility] PRN Reason: Protocol Last Admin: 06/19/17 08:42 Dose: 2.5 mg Aspirin (Aspirin Chewable) 81 mg PO DAILY [facility] Last Admin: 06/19/17 08:42 Dose: 81 mg Atorvastatin Calcium (Lipitor) 40 mg PO HS [facility] Last Admin: 06/18/17 22:20 Dose: 40 mg Metoprolol Tartrate (Lopressor) 12.5 mg PO Q12 [facility] Last Admin: 06/19/17 08:42 Dose: 12.5 mg Ondansetron HCl (Zofran Tab) 4 mg PO Q6 PRN PRN Reason: Nausea/Vomiting Pantoprazole Sodium (Protonix Ec Tab) 40 mg PO 0630 [facility] Last Admin: 06/19/17 06:49 Dose: 40 mg Sodium Polystyrene Sulfonate (Kayexalate Oral Susp) 30 gm PO ONCE ONE Stop: 06/19/17 17:01 Physical Exam - Constitutional Appears: No Acute Distress, Younger Than Stated Age - Head Exam Head Exam: ATRAUMATIC, NORMAL INSPECTION, NORMOCEPHALIC - Eye Exam Eye Exam: Normal appearance - ENT Exam ENT Exam: Mucous Membranes Moist - Respiratory Exam Respiratory Exam: NORMAL BREATHING PATTERN - Cardiovascular Exam Cardiovascular Exam: REGULAR RHYTHM - GI/Abdominal Exam GI & Abdominal Exam: Distended. absent: Firm - Extremities Exam Extremities exam: Negative for: normal inspection (has significant fungal reaction in toe nails and chronic stasis changes in the lower extremities as well) Results - Vital Signs Recent Vital Signs: Last Vital Signs Temp 97.8 F 06/19/17 15:51 Pulse 94 H 06/19/17 15:51 Resp 20 06/19/17 15:51 BP 149/85 06/19/17 15:51 Pulse Ox 98 06/19/17 15:51 - Labs Result Diagrams: 06/19/17 15:55 06/19/17 15:55 Labs: Laboratory Results - last 24 hr 06/18/17 06/19/17 06/19/17 22:31 06:52 08:05 WBC RBC Hgb Hct MCV MCH MCHC RDW Plt Count Sodium 140 Potassium 5.3 H Chloride 109 H Carbon Dioxide 20 L Anion Gap 16 BUN 50 H Creatinine 2.0 H Est GFR ( Amer) 40 Est GFR (Non-Af Amer) 33 POC Glucose (mg/dL) 168 H 135 H Random Glucose 142 H Calcium 9.4 06/19/17 06/19/17 08:05 15:25 WBC 9.3 RBC 3.68 L Hgb 10.6 L Hct 33.0 L MCV 89.7 MCH 28.7 MCHC 32.1 L RDW 15.4 H Plt Count 319 Sodium Potassium Chloride Carbon Dioxide Anion Gap BUN Creatinine Est GFR ( Amer) Est GFR (Non-Af Amer) POC Glucose (mg/dL) 225 H Random Glucose Calcium Assessment & Plan - Assessment and Plan (Free Text) Assessment: PT/OT to continue to help increase functional independence Team conference for d/c planning Pain: controlled Vascular: no evidence of DVT GI: No evidence of constipation or diarrhea Neuro and Cardiology are on the case given recent medical issues Patient is an excellent acute rehabilitation candidate and will have focused PT , OT and recreational therapy to help facilitate a safe and appropriate d/c plan Impairment code 01.1
--- NOTE | 2017-06-19 16:02 | CP.PCM.PN ---
Subjective - Date & Time of Evaluation Date of Evaluation: 06/19/17 Time of Evaluation: 16:36 - Subjective Subjective: right CVA, left HP Objective - Vital Signs/Intake and Output Vital Signs (last 24 hours): Temp Pulse Resp BP Pulse Ox 97.8 F 94 H 20 149/85 98 06/19/17 15:51 06/19/17 15:51 06/19/17 15:51 06/19/17 15:51 06/19/17 15:51 - Medications Medications: Current Medications Apixaban (Eliquis) 2.5 mg PO Q12 [facility] PRN Reason: Protocol Last Admin: 06/19/17 08:42 Dose: 2.5 mg Aspirin (Aspirin Chewable) 81 mg PO DAILY [facility] Last Admin: 06/19/17 08:42 Dose: 81 mg Atorvastatin Calcium (Lipitor) 40 mg PO HS [facility] Last Admin: 06/18/17 22:20 Dose: 40 mg Metoprolol Tartrate (Lopressor) 12.5 mg PO Q12 [facility] Last Admin: 06/19/17 08:42 Dose: 12.5 mg Ondansetron HCl (Zofran Tab) 4 mg PO Q6 PRN PRN Reason: Nausea/Vomiting Pantoprazole Sodium (Protonix Ec Tab) 40 mg PO 0630 [facility] Last Admin: 06/19/17 06:49 Dose: 40 mg Sodium Polystyrene Sulfonate (Kayexalate Oral Susp) 30 gm PO ONCE ONE Stop: 06/19/17 17:01 - Labs Labs: 06/19/17 08:05 06/19/17 08:05 Physiatry Overall Plan of Care - Overall Plan of Care Estimated Length of Stay in Weeks: 3 Rehab Impairment: Mobility, Gait, Balance, Coordination Etiologic Diagnosis: Cerebrovascular Accident Rehab/Medical Prognosis: Guarded - Anticipated Interventions Physical Therapy:: Yes Occupational Therapy:: Yes Speech Therapy:: Yes Recreational Therapy:: Yes - Therapy Goals Bed Mobility: Contact Guard Ambulation: Contact Guard Functional Positional Changes:: Contact Guard - Discharge Plan Discharge Destination: Home
[2017-06-19 16:03] LABS: MEAN CELL VOLUME 88.6 fl (80.0-94.0); MEAN CORPUSCULAR HEMOGLOBIN 28.3 pg (27.0-31.0); MEAN CORPUSCULAR HGB CONC 31.9 g/dL (33.0-37.0); RED CELL DISTRIBUTION WIDTH 15.3 % (11.5-14.5); WHITE BLOOD COUNT 9.7 K/uL (4.8-10.8)
--- NOTE | 2017-06-19 16:04 | PSY.TMCNF ---
Nursing - Vital Signs Vital Signs (Last 8 hours): Vital Signs 06/19/17 06/19/17 06/19/17 08:26 08:42 15:25 Temperature 97.3 F L 97.9 F Pulse Rate 92 H 92 H 101 H Respiratory 20 20 Rate Blood Pressure 142/86 142/86 146/88 O2 Sat by Pulse 98 98 Oximetry 06/19/17 15:51 Temperature 97.8 F Pulse Rate 94 H Respiratory 20 Rate Blood Pressure 149/85 O2 Sat by Pulse 98 Oximetry - Bladder Management Bladder Pattern: Incontinent Voiding Method: Urinal - Bowel Management Bowel Pattern: Normal Physical Therapy - Provider License Number: [id number] Occupational Therapy - Arousal/Attention/Orientation Patient Orientation: Person, Place, Time, Appropriate to Age, Appropriate to Situation - Provider Therapist: Dylan Speech Therapy - Plan Frequency: 3-5 times per week Duration: 1 week Case Management - Discharge Plan Discharge Plan: Home with significant other/family (10 steps) Rehabilitation Plan - Treatment Plan Treatment Plan: Physical Therapy, Occupational Therapy, Speech, Dietary, Patient /Family Education - Discharge Plan Discharge to: Home
--- NOTE | 2017-06-19 16:05 | PCM.RRT ---
<Toney Moreno - Last Filed: 06/19/17 16:56> I.Reason for PROGRAM WRITER - A) Acute Change in Patient: (Select all that apply): Staff member or family is worried about patient ( syncope) - Neurological Status (Select all that apply): Alert, Responsive, Oriented, Verbal, Follows Commands - Respiratory Oxygen Delivery Method: Room Air - Constitutional Appears: Non-toxic, No Acute Distress - Head Head Exam: ATRAUMATIC, NORMAL INSPECTION, NORMOCEPHALIC - Eyes Eye Exam: Normal appearance - Respiratory Exam Respiratory Exam: Clear to Ausculation Bilateral, NORMAL BREATHING PATTERN. absent: Decreased Breath Sounds, Rales, Rhonchi, Wheezes - Cardiovascular Exam Cardiovascular Exam: Irregular Rhythm, +S1, +S2 - GI/Abdominal Exam GI & Abdominal Exam: Soft, Normal Bowel Sounds. absent: Guarding, Tenderness - Neurological Exam Neurological Exam: Alert, Awake - Extremities Exam Extremities Exam: Normal Inspection Plan - Assessment of Findings&Treatment Plan PROGRAM WRITER code called by RN due to syncope 72 yo male patient with PMH of HTN, DM, Afib, CVA and CKD was participating in therapy today, nurse assisting patient pass BM, patient then sat on bed and began to vomit and a syncopal episode was witnessed. No tremors/shaking reported. Lasted seconds. Patient states more tired after multiple episodes of vomiting. No pre-syncopal symptoms reported. No dizziness, lightheadedness, loss of vision. Patient able to report the events leading up to episode. Patient was previously evaluated in telemetry floor by Cardiology and Neurology. Was transferred to rehab last night. Denies chest pain, palpitations , sob, headache, no fever, numbness, loss of vission, no abdominal pain or any other pain. Impression: Syncope and vomiting in S/P CVA patient. -EKG - a flutter -Accucheck -cbc, bmp, troponin, Mg, Phos, Prolactin, cpk -Held flomax due to possible orthostatic hypotension -Spoke with Juan, recommended speaking with Neuro -Spoke with Dr. Larios, Neuro, recommends Head ct w/o contrast and EEG and cardiology consult -Orders placed, all above seen/discussed with hospitalist -Patient to remain in current setting <Shirlene Reddy - Last Filed: 06/19/17 17:48> Attending/Attestation - Attestation I have personally seen and examined this patient.: Yes I have fully participated in the care of the patient.: Yes I have reviewed all pertinent clinical information, including history, physical exam and plan: Yes Notes (Text): PROGRAM WRITER called bec of witnessed fleeting unresponsiveness Responded to the PROGRAM WRITER with the resident - Dr Moreno Pt seen and examined. Pt was admitted to Acute Rehab for PT s/p CVA He denies CP, no SOB, no abd pain Accdg to the Rehab staff - The patient just finished having a bowel movement and after he was cleaned , he was assisted to sit on the commode . He then started vomiting and suddenly became momentarily unresponsive. NO seizure like activity noted. SYNCOPE prob vasovagal as this happened after vomiting however need to r/o Orthostatic Hypotension, r/o new CVA/bleed/conversion , r/o Seizure r/o Electrolyte Imbalance - pt also had a syncope last wk and this was also after an episode of vomiting - on exam, HR was regular, no carotid bruit, no change in neuro exam -EKG : A flutter, rate controlled -stat CT of head - EEG - CBC, BMP, Mg, Trop, Prolactin, CPK - Orthostatic VS Pt's PMD notified of event - Dr Martinez rec Neuro consult - I spoke with dr Larios - discussed case - rec Ct of head and EEG and Cardio eval Discussed case with Dr iGbson - will come to see pt-
[2017-06-19 16:16] LABS: BLOOD UREA NITROGEN 53 mg/dl (9-20); CALCIUM 9.5 mg/dL (8.4-10.2); CARBON DIOXIDE 20 mmol/L (22-30); CHLORIDE 107 mmol/L (98-107); GFR AFRICAN-AMERICAN 36; GLUCOSE,RANDOM 224 mg/dL (75-110); MAGNESIUM 1.7 MG/DL (1.6-2.3); PHOSPHOROUS 3.8 mg/dl (2.5-4.5); POTASSIUM 4.9 MMOL/L (3.6-5.0); SODIUM 140 mmol/l (132-148)
--- NOTE | 2017-06-19 16:36 | CT ---
PROCEDURE: CT HEAD WITHOUT CONTRAST. HISTORY: syncope COMPARISON: Comparison made with CT scan brain 06/13/2017. TECHNIQUE: Axial computed tomography images were obtained through the head/brain without intravenous contrast. Radiation dose: Total exam DLP = 879.83 mGy-cm. This CT exam was performed using one or more of the following dose reduction techniques: Automated exposure control, adjustment of the mA and/or kV according to patient size, and/or use of iterative reconstruction technique. FINDINGS: HEMORRHAGE: No acute parenchymal, subarachnoid or extra-axial hemorrhage. BRAIN: Re- demonstrated is moderate diffuse/ confluent chronic white matter ischemic changes that extend peripherally into the deep and subcortical white matter both cerebral hemispheres. Small chronic infarct left anterolateral basal ganglia again noted involving anterior globus pallidus/putamen junction and anterior limb left internal capsule. Small to medium-sized right basal ganglia infarct which was described is age indeterminate on prior study again noted. Moderate to significant central volume loss. Calcifications both carotid siphons again seen. VENTRICLES: Enlarged unchanged as described above. CALVARIUM: No acute calvarial fracture seen PARANASAL SINUSES: Minimal mucosal thickening noted within several ethmoid air cells extending into the frontal sinus. Minimal mucosal thickening both maxillary antra. The. MASTOID AIR CELLS: Unremarkable as visualized. No inflammatory changes. OTHER FINDINGS: None. IMPRESSION: No acute intracranial hemorrhage. Moderate chronic white matter ischemic changes with bilateral basal nuclei lacunar type infarcts. Moderate to fairly significant central volume loss. Overall the appearance of the brain is relatively unchanged when compared with prior study as above.
[2017-06-19] MEDS ORDERED: Sod Polystyrene Sulf 15 gm/60 ml Oral Susp PO ONE (17:00)
--- NOTE | 2017-06-19 17:59 | CP.PCM.CON ---
History of Present Illness - History of Present Illness History of Present Illness: THE PATIENT IS A 72 YEAR OLD MALE WITH A RECENT RIGHT CEREBRAL INFARCT SEEN AT THE [facility] [place], ATRIAL FIBRILLATION-FLUTTER, HYPERTENSION, DM AND BPH. HE WAS ADMITTED TO [address] [facility] LAST WEEK AND WAS TRANSFERRED TO AFTER A SYNCOPAL EPISODE. ON [place] HE WAS IN ATRIAL FLUTTER AND AN ECHOCARDIOGRAM SHOWED GOOD LV FUNCTION AND NO THROMBI. HE WAS CLEARED BY NEUROLOGY TO GO BACK TO ACUTE REHAB AND WENT THERE LAST EVENING. TODAY HE WAS DOING WELL BUT LATER HAD A BM AND THEN VOMITING AND THEN HAD A LOC FOR ONLY A FEW SECONDS. AN APPLICATIONS SCIENTIST WAS CALLED BUT HE WAS AWAKE, ALERT AND ORIENTED AND STABLE. NEUROLOGY AND CARDIOLOGY WERE CALLED TO SEE HIM AGAIN. HE DENIES CHEST PAIN OR PALPITATIONS AND FEELS FINE NOW. IT IS OF NOTE THAT HE HAD A VOMITING EPISODE BEFORE LAST WEEK'S SYNCOPE. Past Patient History - Past Medical History & Family History Past Medical History?: Yes - Past Social History Smoking Status: Former Smoker Alcohol: Occasional Drugs: Denies Home Situation {Lives}: With Family - CARDIAC Hx Cardiac Disorders: Yes Hx Hypertension: Yes - PULMONARY Hx Respiratory Disorders: No - NEUROLOGICAL HX Cerebrovascular Accident: Yes - HEENT Hx HEENT Problems: Yes Other/Comment: Pt uses glasses for reading. - RENAL Hx Chronic Kidney Disease: Yes Other/Comment: hx of Hyponatremia - ENDOCRINE/METABOLIC Hx Diabetes Mellitus Type 2: Yes - HEMATOLOGICAL/ONCOLOGICAL Hx Blood Disorders: No Hx AIDS: No Hx Human Immunodeficiency Virus (HIV): No - INTEGUMENTARY Hx Dermatological Problems: No - MUSCULOSKELETAL/RHEUMATOLOGICAL Hx Falls: Yes (x1) Other/Comment: hx of chronic left hip pain - GASTROINTESTINAL Hx Gastrointestinal Disorders: No - GENITOURINARY/GYNECOLOGICAL Hx Genitourinary Disorders: Yes Hx Incontinence: Yes - PSYCHIATRIC Hx Psychophysiologic Disorder: No Hx Substance Use: No - SURGICAL HISTORY Hx Surgeries: No - ANESTHESIA Hx Anesthesia: No Hx Anesthesia Reactions: (NA) Hx Malignant Hyperthermia: No Meds Allergies/Adverse Reactions: Allergies Allergy/AdvReac Type Severity Reaction Status Date / Time No Known Allergies Allergy Verified 06/18/17 20:24 - Medications Medications: Current Medications Apixaban (Eliquis) 2.5 mg PO Q12 [facility] PRN Reason: Protocol Last Admin: 06/19/17 08:42 Dose: 2.5 mg Aspirin (Aspirin Chewable) 81 mg PO DAILY [facility] Last Admin: 06/19/17 08:42 Dose: 81 mg Atorvastatin Calcium (Lipitor) 40 mg PO HS [facility] Last Admin: 06/18/17 22:20 Dose: 40 mg Lactic Acid (Lac-Hydrin 12% Lotion (225 G)) 1 applic TOP Q8 [facility] Metoprolol Tartrate (Lopressor) 12.5 mg PO Q12 [facility] Last Admin: 06/19/17 08:42 Dose: 12.5 mg Ondansetron HCl (Zofran Tab) 4 mg PO Q6 PRN PRN Reason: Nausea/Vomiting Pantoprazole Sodium (Protonix Ec Tab) 40 mg PO 0630 [facility] Last Admin: 06/19/17 06:49 Dose: 40 mg Physical Exam - Respiratory Exam Respiratory Exam: Clear to Auscultation Bilateral - Cardiovascular Exam Cardiovascular Exam: Irregular Rhythm, +S1, +S2 - Additional Findings Additional findings: EKG ATRIAL FLUTTER TROPONIN NORMAL K+ 4.9 CT NO NEW CHANGES FROM 06/13/17 STUDY Results - Vital Signs Recent Vital Signs: Last Vital Signs Temp 97.8 F 06/19/17 15:51 Pulse 94 H 06/19/17 15:51 Resp 20 06/19/17 15:51 BP 149/85 06/19/17 15:51 Pulse Ox 98 06/19/17 15:51 - Labs Result Diagrams: 06/19/17 15:55 06/19/17 15:55 Labs: Laboratory Results - last 24 hr 06/18/17 06/19/17 06/19/17 22:31 06:52 08:05 WBC RBC Hgb Hct MCV MCH MCHC RDW Plt Count Sodium 140 Potassium 5.3 H Chloride 109 H Carbon Dioxide 20 L Anion Gap 16 BUN 50 H Creatinine 2.0 H Est GFR ( Amer) 40 Est GFR (Non-Af Amer) 33 POC Glucose (mg/dL) 168 H 135 H Random Glucose 142 H Calcium 9.4 Phosphorus Magnesium Total Creatine Kinase Troponin I 06/19/17 06/19/17 06/19/17 08:05 15:25 15:55 WBC 9.3 RBC 3.68 L Hgb 10.6 L Hct 33.0 L MCV 89.7 MCH 28.7 MCHC 32.1 L RDW 15.4 H Plt Count 319 Sodium 140 Potassium 4.9 Chloride 107 Carbon Dioxide 20 L Anion Gap 18 BUN 53 H Creatinine 2.2 H Est GFR ( Amer) 36 Est GFR (Non-Af Amer) 30 POC Glucose (mg/dL) 225 H Random Glucose 224 H Calcium 9.5 Phosphorus 3.8 Magnesium 1.7 Total Creatine Kinase 142 Troponin I < 0.0120 06/19/17 15:55 WBC 9.7 RBC 3.49 L Hgb 9.9 L Hct 31.0 L MCV 88.6 MCH 28.3 MCHC 31.9 L RDW 15.3 H Plt Count 319 Sodium Potassium Chloride Carbon Dioxide Anion Gap BUN Creatinine Est GFR ( Amer) Est GFR (Non-Af Amer) POC Glucose (mg/dL) Random Glucose Calcium Phosphorus Magnesium Total Creatine Kinase Troponin I Assessment & Plan - Assessment and Plan (Free Text) Assessment: BRIEF LOC AFTER VOMITING-NOW STABLE. POSSIBLY VASOVAGAL. NO NEW CHANGES ON CT SCAN. RECENT RIGHT CEREBRAL INFARCT. ATRIAL FLUTTER HYPERTENSION HYPERLIPIDEMIA DM BPH Plan: CONTINUE ELIQUIS, METOPROLOL, ATORVASTATIN NEUROLOGY TO SEE FLOMAX WAS STOPPED CT DONE, EEG ORDERED
[2017-06-20] MEDS: Pantoprazole 40 mg EC Tab PO SCH (06:20)
[2017-06-20 07:52] LABS: CALCIUM 9.5 mg/dL (8.4-10.2); POTASSIUM 4.8 MMOL/L (3.6-5.0)
--- NOTE | 2017-06-20 09:27 | CP.PCM.PN ---
Subjective - Date & Time of Evaluation Date of Evaluation: 06/20/17 Time of Evaluation: 08:45 - Subjective Subjective: NO NEW COMPLAINTS NO LOC SINCE SEEN LAST EVENING Objective - Vital Signs/Intake and Output Vital Signs (last 24 hours): Temp Pulse Resp BP Pulse Ox 97.8 F 96 H 19 142/83 99 06/20/17 08:08 06/20/17 08:08 06/20/17 08:08 06/20/17 08:08 06/20/17 08:08 - Medications Medications: Current Medications Acetaminophen (Tylenol 325mg Tab) 650 mg PO Q6 PRN PRN Reason: pain scale 4-10 or headache. Apixaban (Eliquis) 2.5 mg PO Q12 [facility] PRN Reason: Protocol Last Admin: 06/20/17 08:01 Dose: 2.5 mg Aspirin (Aspirin Chewable) 81 mg PO DAILY [facility] Last Admin: 06/20/17 08:01 Dose: 81 mg Atorvastatin Calcium (Lipitor) 40 mg PO HS [facility] Last Admin: 06/19/17 21:06 Dose: 40 mg Lactic Acid (Lac-Hydrin 12% Lotion (225 G)) 1 applic TOP Q8 [facility] Last Admin: 06/20/17 06:20 Dose: 1 applic Metoprolol Tartrate (Lopressor) 12.5 mg PO Q12 [facility] Last Admin: 06/19/17 21:06 Dose: 12.5 mg Ondansetron HCl (Zofran Tab) 4 mg PO Q6 PRN PRN Reason: Nausea/Vomiting Pantoprazole Sodium (Protonix Ec Tab) 40 mg PO 0630 [facility] Last Admin: 06/20/17 06:20 Dose: 40 mg Tamsulosin HCl (Flomax) 0.4 mg PO BID [facility] Last Admin: 06/19/17 23:57 Dose: 0.4 mg - Labs Labs: 06/19/17 15:55 06/20/17 07:25 - Respiratory Exam Respiratory Exam: Clear to Ausculation Bilateral - Cardiovascular Exam Cardiovascular Exam: REGULAR RHYTHM, +S1, +S2 - Back Exam Back Exam: NORMAL INSPECTION Assessment and Plan - Assessment and Plan (Free Text) Assessment: ATRIAL FLUTTER HYPERTENSION RECENT CVA PROBABLE VASOVAGAL SYNCOPE Plan: CONTINUE ASPIRIN, ELIQUIS, METOPROLOL AND ATORVASTATIN
--- NOTE | 2017-06-20 09:30 | HP ---
HISTORY OF PRESENT ILLNESS: This is a 72-year-old male with history of CVA and left-sided weakness, was admitted to acute rehabilitation for deconditioning and rehab. The patient had history of paroxysmal atrial fibrillation/flutter and presyncope. The patient was worked up by cardiology and neurology, and he was maintained on beta-carrie and continued on anticoagulant. The patient did well in an acute rehab and he was discharged in acute care floor, and he was discharged into an acute rehab. PAST MEDICAL HISTORY: Chronic kidney disease, hypertension, CVA with left-sided weakness, benign prostatic hypertrophy. FAMILY HISTORY: Not contributory. SOCIAL HISTORY: No history of smoking, ETOH, or substance abuse. REVIEW OF SYSTEMS: Negative. ALLERGIES: NO KNOWN ALLERGY. MEDICATIONS: Metoprolol 12.5 mg p.o. b.i.d., Eliquis 2.5 mg twice a day, and Flomax 0.4 mg daily. PHYSICAL EXAMINATION VITAL SIGNS: Blood pressure is 138/83, temperature 98.2, respiratory rate 20, and pulse 90. HEENT: Pupils are equal and reactive to light. Normal appearing mucosa of the conjunctivae, oropharynx, and nasal membrane mucosa. NECK: Supple. No JVD. No carotid bruit. No lymph node. No thyromegaly. CHEST AND LUNGS: Bilateral symmetrical expansion. Good air exchange. No rales. No rhonchi. CARDIOVASCULAR: PMI not localized. S1 and S2. No additional sounds. ABDOMEN: Normoactive bowel sounds. No tenderness. No organomegaly. No masses. EXTREMITIES: No cyanosis, no clubbing, no edema. CENTRAL NERVOUS SYSTEM: Alert, awake, and oriented x2. Known slightly left-sided weakness compared to the right. ASSESSMENT: 1. Acute rehabilitation. 2. Cerebrovascular accident with left-sided weakness. 3. Paroxysmal atrial fibrillation. 4. Hypertension. PLAN: We will continue physical therapy and occupational therapy with your patient's medications and monitor vital signs every six hours. Mary MD Juan
--- NOTE | 2017-06-20 19:10 | CP.PCM.PN ---
Subjective - Date & Time of Evaluation Date of Evaluation: 06/20/17 Time of Evaluation: 19:09 - Subjective Subjective: Patient seen going to US head CT no acute event noted, largely unchanged from prior study ambulated 7' in therapy continue with current care and work up Objective - Vital Signs/Intake and Output Vital Signs (last 24 hours): Temp Pulse Resp BP Pulse Ox 97.8 F 91 H 19 136/78 100 06/20/17 08:08 06/20/17 13:08 06/20/17 08:08 06/20/17 13:08 06/20/17 11:50 - Medications Medications: Current Medications Acetaminophen (Tylenol 325mg Tab) 650 mg PO Q6 PRN PRN Reason: pain scale 4-10 or headache. Apixaban (Eliquis) 2.5 mg PO Q12 [facility] PRN Reason: Protocol Last Admin: 06/20/17 08:01 Dose: 2.5 mg Aspirin (Aspirin Chewable) 81 mg PO DAILY [facility] Last Admin: 06/20/17 08:01 Dose: 81 mg Atorvastatin Calcium (Lipitor) 40 mg PO HS [facility] Last Admin: 06/19/17 21:06 Dose: 40 mg Lactic Acid (Lac-Hydrin 12% Lotion (225 G)) 1 applic TOP Q8 [facility] Last Admin: 06/20/17 13:10 Dose: 1 applic Metoprolol Tartrate (Lopressor) 12.5 mg PO Q12 [facility] Last Admin: 06/20/17 13:08 Dose: 12.5 mg Ondansetron HCl (Zofran Tab) 4 mg PO Q6 PRN PRN Reason: Nausea/Vomiting Pantoprazole Sodium (Protonix Ec Tab) 40 mg PO 0630 [facility] Last Admin: 06/20/17 06:20 Dose: 40 mg Tamsulosin HCl (Flomax) 0.4 mg PO QOTHERDAY [facility] - Labs Labs: 06/19/17 15:55 06/20/17 07:25
--- NOTE | 2017-06-21 00:14 | CARD ---
APPROVED REPORT EKG Measurement Heart [id number] <Conclusion> Atrial flutter with 3:1 AV conduction Cannot rule out Inferior infarct, age undetermined Abnormal ECG
--- NOTE | 2017-06-21 01:40 | CON ---
DATE: 06/20/2017 NEUROLOGY CONSULTATION NOTE REASON FOR CONSULTATION: Recent stroke and episode of passing out. HISTORY OF PRESENT ILLNESS: The patient is a 72-year-old male, who was admitted to the rehabilitation facility in [facility]. Patient was in rehab after he had a stroke. In the rehabilitation facility, patient had a syncopal episode and he was transferred to acute care facility. He had a workup done which was negative for any cardiac arrhythmias or seizures and he was transferred back to the rehab facility. In the rehab facility, the patient again passed out yesterday. Yesterday, patient was going for physical therapy and as physical therapist was going to take him, he just collapsed and passed out for several seconds. The patient did not had any abnormal movements. He regained consciousness spontaneously. He did not had any increase in his focal weakness in arms and legs. At the moment, he feels fines fine. He also says that his weakness on the left side is significantly improved. REVIEW OF SYSTEMS: Denies any headache, dizziness, chest pain, shortness of breath, abdominal pain, constipation, diarrhea, dysuria, pyuria, cough, or sputum production. PAST MEDICAL HISTORY: Includes hypercholesterolemia, hypertension and atrial fibrillation. CURRENT MEDICATIONS: Include aspirin, Eliquis, atorvastatin, Lopressor, Protonix, Tylenol, and Zofran. ALLERGIES: NO KNOWN DRUG ALLERGIES. SOCIAL HISTORY: Patient denies smoking, use of alcohol, or use of any illicit drugs. FAMILY HISTORY: Reviewed and noncontributory to the case. PHYSICAL EXAMINATION: GENERAL: The patient is an elderly pleasant male, lying on the bed, in no acute distress. VITAL SIGNS: His blood pressure is 142/83 lying and 135/78 sitting. His heart rate is 96 per minute, breathing at a rate of 16 per minute, and temperature is 97.8 degrees Fahrenheit. HEENT: Head is normocephalic and atraumatic. NECK: Supple. There are no carotid bruits. LUNGS: Clear. CARDIOVASCULAR: S1 and S2 audible. No murmurs. ABDOMEN: Soft and nontender. Bowel sounds present. NEUROLOGIC: Mental status; the patient is awake, alert and oriented to time, place and person. His speech is fluent. Naming and repetition is normal. Memory and inclination are intact. Cranial nerve examination; pupils are 3 mm bilaterally reactive to light. Visual naranjo are full. Extraocular movements are intact. There is slight decrease in nasolabial fold on the left side. Palate is upgoing bilaterally and tongue is midline. Motor examination; tone is normal. There is mild left-sided pronator drift. Otherwise, power is 4/5 bilaterally in all extremities. Reflexes 1+ and symmetrical. Plantars upgoing on the left side and downgoing on the right side. Cerebellar examination; [id number] shows no dysmetria. LABORATORY DATA: Reviewed shows WBC of 9.7, hemoglobin of 9.9, hematocrit of 31.0, and platelets of 15.3. Sodium is 142, potassium 4.8, chloride 110, carbon dioxide 20, BUN of 48, creatinine of 2.1, and glucose of 151. IMPRESSION: 1. Status post syncope x2. 2. Cerebrovascular accident. RECOMMENDATIONS: 1. The patient to have a repeat electroencephalogram. 2. The patient had a repeat CT scan of the head done which shows no acute pathology, moderate chronic white matter ischemic changes and bilateral basal nuclei type infarcts. Overall appearance of the brain is unchanged from the previous exam. 3. The patient is to be continued on Eliquis for his underlying atrial fibrillation. 4. The patient also to be continued on statin. 5. The episode of passing may have been secondary to orthostatic hypotension; however, at the moment, patient does not have any orthostatic hypotension. Brick Loader has seen the patient and stopped Flomax. 6. Please continue physical therapy. 7. Please continue treatment and supportive care. Thank you for the opportunity to participate in the care of this patient. Neri Larios MD
--- NOTE | 2017-06-21 06:08 | PN ---
DATE: 06/20/2017 SUBJECTIVE: He is not in any cardiopulmonary distress. There are no more episodes of vomiting or syncope. PHYSICAL EXAMINATION: VITAL SIGNS: Blood pressure is 136/78, temperature 98.2, respiratory rate 20, and pulse 90. HEENT: Pupils are equal and reactive to light. Normal-appearing mucosa of the conjunctivae, oropharynx, and nasal membrane mucosa. NECK: Supple. No JVD. No carotid bruit. No lymph node. No thyromegaly. CHEST AND LUNGS: Bilateral symmetrical expansion. Good air exchange. No rales. No rhonchi. CARDIOVASCULAR: PMI not localized. S1 and S2. No additional sounds. ABDOMEN: Normoactive bowel sounds. No tenderness. No organomegaly. No masses. EXTREMITIES: No cyanosis, no clubbing, no edema. CENTRAL NERVOUS SYSTEM: Alert, awake, and oriented x2, and the patient has left-sided hemiparesis. ASSESSMENT: Cerebrovascular accident with left-sided hemiparesis; chronic kidney disease; hyperkalemia; history of possible syncope, unclear etiology; atrial fibrillation/atrial flutter; urinary retention. PLAN: We will refill his Flomax 0.4 mg every other day. Continue current medications and continue physical therapy and occupational therapy. Speedy Martinez MD
[2017-06-21] MEDS: Pantoprazole 40 mg EC Tab PO SCH (06:31)
--- NOTE | 2017-06-21 08:17 | EEG ---
DATE: ELECTROENCEPHALOGRAM REPORT INTRODUCTION: This is a digitally recorded EEG monitoring using standard EEG montages. Background rhythm of the EEG shows a background activity of 8 Hz alpha activity in parietooccipital region. The EEG activity is bilaterally symmetrical and synchronized. There is attenuation of the background activity on eye opening. Small amount of myogenic artifact noticed in this EEG recording. Abnormal potentials, no spike, sharp waves, or focal plane was seen. Photic stimulation and hyperventilation: Photic stimulation did not reveal any abnormality. Hyperventilation was not performed. IMPRESSION: Normal electroencephalogram. No epileptiform activity seen in this electroencephalogram recording. Neri Larios MD
--- NOTE | 2017-06-21 12:01 | CP.PCM.PN ---
Subjective - Date & Time of Evaluation Date of Evaluation: 06/21/17 Time of Evaluation: 10:30 - Subjective Subjective: NO COMPLAINTS STATES HE FEELS WELL NO FURTHER DIZZINES OR LOC Objective - Vital Signs/Intake and Output Vital Signs (last 24 hours): Temp Pulse Resp BP Pulse Ox 97.5 F L 82 18 152/70 H 100 06/21/17 09:23 06/21/17 10:41 06/21/17 09:23 06/21/17 10:41 06/21/17 09:23 - Medications Medications: Current Medications Acetaminophen (Tylenol 325mg Tab) 650 mg PO Q6 PRN PRN Reason: pain scale 4-10 or headache. Apixaban (Eliquis) 2.5 mg PO Q12 [facility] PRN Reason: Protocol Last Admin: 06/21/17 09:16 Dose: 2.5 mg Aspirin (Aspirin Chewable) 81 mg PO DAILY [facility] Last Admin: 06/21/17 09:16 Dose: 81 mg Atorvastatin Calcium (Lipitor) 40 mg PO HS [facility] Last Admin: 06/20/17 21:27 Dose: 40 mg Lactic Acid (Lac-Hydrin 12% Lotion (225 G)) 1 applic TOP Q8 [facility] Last Admin: 06/21/17 06:42 Dose: 1 applic Metoprolol Tartrate (Lopressor) 12.5 mg PO Q12 [facility] Last Admin: 06/21/17 10:41 Dose: 12.5 mg Ondansetron HCl (Zofran Tab) 4 mg PO Q6 PRN PRN Reason: Nausea/Vomiting Pantoprazole Sodium (Protonix Ec Tab) 40 mg PO 0630 [facility] Last Admin: 06/21/17 06:31 Dose: 40 mg Tamsulosin HCl (Flomax) 0.4 mg PO QOTHERDAY [facility] Last Admin: 06/21/17 09:16 Dose: 0.4 mg - Labs Labs: 06/19/17 15:55 06/20/17 07:25 - Respiratory Exam Respiratory Exam: Clear to Ausculation Bilateral - Cardiovascular Exam Cardiovascular Exam: REGULAR RHYTHM, +S1, +S2 - Additional Findings Additional findings: PHYSICAL THERAPISTS STATE HE IS DOING WELL AT PT Assessment and Plan - Assessment and Plan (Free Text) Assessment: RECENT CVA ATRIAL FLUTTER HYPERTENSION Plan: CONTINUE ASPIRIN, ELIQUIS, METOPROLOL AND ATORVASTATIN CONTINUE PHYSICAL THERAPY
--- NOTE | 2017-06-21 12:19 | US ---
PROCEDURE: Ultrasound of the Kidneys HISTORY: elevated bun/creat COMPARISON: None available. TECHNIQUE: Sonogram of the kidneys. FINDINGS: RIGHT KIDNEY: Measures: 12.7 cm. Normal in size, contour and echogenicity. Moderate hydronephrosis. No mass or calculus. LEFT KIDNEY: Measures: 12.7 cm. Normal in size, contour and echogenicity. Moderate hydronephrosis. No mass or calculus. OTHER FINDINGS: Limited evaluation of urinary bladder demonstrates a 3.3 x 2.2 x 1.9 cm mildly echogenic lesion along and unspecified portion of the bladder wall. Uncertain significance. Further evaluation is advised with cystoscopy. IMPRESSION: Bilateral moderate hydronephrosis. Echogenic bladder wall mass/ lesion, 3.3 cm. Other evaluation is advised. Preliminary interpretation of this examination was reported by [facility] at 10:14 p.m. on 06/20/2017. There is concurrence of this report with the preliminary interpretation.
[2017-06-22] MEDS: Pantoprazole 40 mg EC Tab PO SCH (06:21)
--- NOTE | 2017-06-22 18:48 | CP.PCM.PN ---
Subjective - Date & Time of Evaluation Date of Evaluation: 06/22/17 Time of Evaluation: 18:46 - Subjective Subjective: Patient seen in room son present and feels his dad is thinking well and not having altered mental status. denies CP BP has been stable today ambulated 30' today with RW Objective - Vital Signs/Intake and Output Vital Signs (last 24 hours): Temp Pulse Resp BP Pulse Ox 97.5 F L 95 H 18 140/93 H 99 06/22/17 08:02 06/22/17 09:25 06/22/17 08:02 06/22/17 08:21 06/22/17 08:02 - Medications Medications: Current Medications Acetaminophen (Tylenol 325mg Tab) 650 mg PO Q6 PRN PRN Reason: pain scale 4-10 or headache. Apixaban (Eliquis) 2.5 mg PO Q12 [facility] PRN Reason: Protocol Last Admin: 06/22/17 10:00 Dose: 2.5 mg Aspirin (Aspirin Chewable) 81 mg PO DAILY [facility] Last Admin: 06/22/17 08:39 Dose: 81 mg Atorvastatin Calcium (Lipitor) 40 mg PO HS [facility] Last Admin: 06/21/17 21:28 Dose: 40 mg Finasteride (Proscar) 5 mg PO DAILY [facility] Last Admin: 06/22/17 08:39 Dose: 5 mg Lactic Acid (Lac-Hydrin 12% Lotion (225 G)) 1 applic TOP Q8 [facility] Last Admin: 06/22/17 13:34 Dose: 1 applic Metoprolol Tartrate (Lopressor) 12.5 mg PO Q12 [facility] Last Admin: 06/22/17 08:21 Dose: 12.5 mg Ondansetron HCl (Zofran Tab) 4 mg PO Q6 PRN PRN Reason: Nausea/Vomiting Pantoprazole Sodium (Protonix Ec Tab) 40 mg PO 0630 [facility] Last Admin: 06/22/17 06:21 Dose: 40 mg Tamsulosin HCl (Flomax) 0.4 mg PO DAILY [facility] Last Admin: 06/22/17 08:21 Dose: 0.4 mg - Labs Labs: 06/19/17 15:55 06/20/17 07:25
--- NOTE | 2017-06-23 01:41 | PN ---
DAILY PROGRESS NOTE DATE: 06/21/2017 SUBJECTIVE: The patient was seen on 06/21/2017 in the acute rehab floor. The patient had a renal ultrasound done that showed bilateral hydronephrosis. PHYSICAL EXAMINATION: VITAL SIGNS: Blood pressure was 132/80, temperature 98.1, respiratory rate 20, and pulse 90. HEENT: Pupils are equal and reactive to light. Normal-appearing mucosa of the conjunctivae, oropharynx, and nasal membrane mucosa. NECK: Supple. No JVD. No carotid bruit. No lymph node. No thyromegaly. CHEST AND LUNGS: Bilateral symmetrical expansion. Good air exchange. No rales. No rhonchi. CARDIOVASCULAR: PMI not localized. S1 and S2. No additional sounds. ABDOMEN: Normoactive bowel sounds. No tenderness. No organomegaly. No masses. EXTREMITIES: No cyanosis, no clubbing, no edema. CENTRAL NERVOUS SYSTEM: Alert, awake, and oriented x2, and the patient has slight left-sided weakness. ASSESSMENT: 1. Bilateral hydronephrosis. 2. Chronic kidney disease. 3. Hypertension. 4. History of cerebrovascular accident with left-sided hemiparesis. PLAN: Flomax was resumed to be 0.4 mg once a day. Proscar 5 mg is added. Urology consult. Continue current management. [facility] MD Juan
--- NOTE | 2017-06-23 01:45 | PN ---
DAILY PROGRESS NOTE DATE: 06/22/2017 SUBJECTIVE: He is more alert and awake and there is no further episodes of syncope. PHYSICAL EXAMINATION: VITAL SIGNS: Blood pressure is 140/90, temperature 98.2, respiratory rate 18, and pulse 90. HEENT: Pupils are equal and reactive to light. Normal-appearing mucosa of the conjunctivae, oropharynx, and nasal membrane mucosa. NECK: Supple. No JVD. No carotid bruit. No lymph node. No thyromegaly. CHEST AND LUNGS: Bilateral symmetrical expansion. Good air exchange. No rales. No rhonchi. CARDIOVASCULAR SYSTEM: PMI not localized. S1 and S2. No additional sounds. ABDOMEN: Normoactive bowel sounds. No tenderness. No organomegaly. No masses. EXTREMITIES: No cyanosis. No clubbing. No edema. UNDERGROUND ROOF BOLTER: Alert, awake, and oriented x2. No neurological deficit could be appreciated. ASSESSMENT: 1. Bilateral hydronephrosis. 2. Benign prostate hypertrophy with urinary retention. 3. Cerebrovascular accident with left-sided hemiparesis. 4. Chronic kidney disease. PLAN: Follow Urology recommendations. Continue Flomax and Proscar. We stopped all antihypertensive medications otherwise. Speedy Martinez MD
--- NOTE | 2017-06-23 01:49 | CON ---
DATE: 06/22/2017 COMPREHENSIVE UROLOGIC CONSULTATION Time of this consultation is roughly 2:30 p.m. HISTORY OF PRESENT ILLNESS: The patient is a 72-year-old black male currently in rehab for status post stroke, which the patient said occurred 2 weeks ago and called for consultation on bilateral hydronephrosis and some postvoid dribbling of urine. The patient has had bladder scans which have showed postvoid residuals around 150 and 160 mL. The patient had multiple syncopal episodes and originally this might be due to Flomax with the patient was recently started on, but then the patient was found to have atrial flutter and irregular cardiac rhythm and now it is thought that his syncopal episodes are not due to Flomax, but due to his irregular cardiac rhythm. The patient was also recently placed on finasteride 5 mg daily, also for treatment of BPH. The patient is currently relatively stable on both these medications at this time. He denies any prior voiding difficulty prior to the stroke and was not on any BPH medications at home according to the patient. He denies any dysuria, gross hematuria, renal colic or abdominal pain. A renal ultrasound done on 06/20/2017, showed bilateral moderate hydronephrosis with no renal mass or calculus noted. This can be consistent with outlet obstruction secondary either to a neurogenic bladder or BPH. He denies any prior surgical history. PAST MEDICAL HISTORY: Consistent with hypertension and hyperlipidemia, and now irregular cardiac rhythm. ALLERGIES: HE HAS NO HISTORY OF ANY ALLERGIES. SOCIAL HISTORY: He has no history of any alcohol or tobacco use at this time. PHYSICAL EXAMINATION: GENERAL: He is a well-developed, well-nourished black male. He is alert, seems to be oriented. HEENT: Grossly within normal limits. NECK: Supple. Thyroid nonpalpable. ABDOMEN: Soft, not distended or tender at this hour. No CVA tenderness. No suprapubic tenderness. GENITALIA: The patient is non-circumcised with normal glans meatus without any rashes or lesions visualized. Testes are down bilaterally, nontender without any masses. RECTAL: Normal rectal tone without fluctuance or masses. Prostate is flat, smooth, symmetrical, nontender without nodules or indurations with a palpable median sulcus, and average sized to slightly enlarged size. LABORATORY DATA: His total PSA was 0.50 on 06/22/2017. No other labs are available in the rehab as of today. We will order a urinalysis today. His laboratory evaluation on 06/20/2017 showed a sodium of 142, potassium 4.8, chloride 110, CO2 is 20, BUN and creatinine of 48 and 2.1 with a GFR of 38 indicating chronic kidney disease stage III. His glucose was 165 today on 06/22/2017 and also his previous hemoglobin A1c was 6.4. Calcium is 9.5. DIAGNOSTIC IMPRESSION: 1, Benign prostatic hyperplasia. 2. Renal insufficiency with chronic kidney disease stage III. PLAN: Plan for this patient is just to maintain the patient on Flomax 0.4 mg daily plus finasteride 5 mg daily for treatment of BPH and renal insufficiency. Monitor his BUN and creatinine with GFR. We will also send the urine for analysis. The patient can be scanned periodically if he starts complaining of lower abdominal distention with discomfort or pain and decreased urinary output. Jah Gomez MD [email or web address]
[2017-06-23] MEDS: Pantoprazole 40 mg EC Tab PO SCH (06:16)
[2017-06-23 08:39] LABS: RBC URINE 1 /hpf (0-3); URINE BACTERIA RARE (<OCC); URINE BILIRUBIN NEGATIVE (NEGATIVE); URINE BLOOD SMALL (NEGATIVE); URINE COLOR YELLOW (YELLOW); URINE GLUCOSE (UA) NEG (Normal); URINE KETONE NEGATIVE (NEGATIVE); URINE LEUKOCYTE ESTERASE LARGE Leu/uL (Negative); URINE PROTEIN 100 mg/dL (NEGATIVE); URINE UROBILINOGEN 0.2-1.0 mg/dL (0.2-1.0); WBC URINE 24 /hpf (0-5)
[2017-06-24] MEDS: Pantoprazole 40 mg EC Tab PO SCH (06:19)
--- NOTE | 2017-06-24 12:54 | CP.PCM.PN ---
Subjective - Date & Time of Evaluation Date of Evaluation: 06/24/17 Time of Evaluation: 10:30 - Subjective Subjective: NO COMPLAINTS Objective - Vital Signs/Intake and Output Vital Signs (last 24 hours): Temp Pulse Resp BP Pulse Ox 97.7 F 90 19 144/85 99 06/24/17 08:10 06/24/17 08:14 06/24/17 08:10 06/24/17 08:14 06/24/17 08:10 - Medications Medications: Current Medications Acetaminophen (Tylenol 325mg Tab) 650 mg PO Q6 PRN PRN Reason: pain scale 4-10 or headache. Apixaban (Eliquis) 2.5 mg PO Q12 [facility] PRN Reason: Protocol Last Admin: 06/24/17 08:14 Dose: 2.5 mg Aspirin (Aspirin Chewable) 81 mg PO DAILY [facility] Last Admin: 06/24/17 08:14 Dose: 81 mg Atorvastatin Calcium (Lipitor) 40 mg PO HS [facility] Last Admin: 06/23/17 21:13 Dose: 40 mg Finasteride (Proscar) 5 mg PO DAILY [facility] Last Admin: 06/24/17 08:14 Dose: 5 mg Lactic Acid (Lac-Hydrin 12% Lotion (225 G)) 1 applic TOP Q8 [facility] Last Admin: 06/24/17 06:19 Dose: 1 applic Metoprolol Tartrate (Lopressor) 12.5 mg PO Q12 [facility] Last Admin: 06/24/17 08:14 Dose: 12.5 mg Ondansetron HCl (Zofran Tab) 4 mg PO Q6 PRN PRN Reason: Nausea/Vomiting Pantoprazole Sodium (Protonix Ec Tab) 40 mg PO 0630 [facility] Last Admin: 06/24/17 06:19 Dose: 40 mg Tamsulosin HCl (Flomax) 0.4 mg PO DAILY [facility] Last Admin: 06/24/17 08:15 Dose: 0.4 mg - Labs Labs: 06/19/17 15:55 06/20/17 07:25 - Respiratory Exam Respiratory Exam: Clear to Ausculation Bilateral - Cardiovascular Exam Cardiovascular Exam: REGULAR RHYTHM, +S1, +S2 Assessment and Plan - Assessment and Plan (Free Text) Assessment: RECENT CVA ATRIAL FLUTTER HYPERTENSION Plan: CONTINUE ASPIRIN, ELIQUIS, METOPROLOL AND ATORVASTATIN
[2017-06-25] MEDS: Pantoprazole 40 mg EC Tab PO SCH (06:00)
--- NOTE | 2017-06-25 10:53 | CP.PCM.PN ---
Subjective - Date & Time of Evaluation Date of Evaluation: 06/25/17 Time of Evaluation: 10:00 - Subjective Subjective: NO COMPLAINTS Objective - Vital Signs/Intake and Output Vital Signs (last 24 hours): Temp Pulse Resp BP Pulse Ox 98.3 F 92 H 20 135/81 97 06/25/17 08:05 06/25/17 08:40 06/25/17 08:05 06/25/17 08:40 06/25/17 08:05 - Medications Medications: Current Medications Acetaminophen (Tylenol 325mg Tab) 650 mg PO Q6 PRN PRN Reason: pain scale 4-10 or headache. Apixaban (Eliquis) 2.5 mg PO Q12 [facility] PRN Reason: Protocol Last Admin: 06/25/17 08:38 Dose: 2.5 mg Aspirin (Aspirin Chewable) 81 mg PO DAILY [facility] Last Admin: 06/25/17 08:38 Dose: 81 mg Atorvastatin Calcium (Lipitor) 40 mg PO HS [facility] Last Admin: 06/24/17 21:13 Dose: 40 mg Finasteride (Proscar) 5 mg PO DAILY [facility] Last Admin: 06/25/17 08:39 Dose: 5 mg Lactic Acid (Lac-Hydrin 12% Lotion (225 G)) 1 applic TOP Q8 [facility] Last Admin: 06/25/17 06:00 Dose: 1 applic Metoprolol Tartrate (Lopressor) 12.5 mg PO Q12 [facility] Last Admin: 06/25/17 08:40 Dose: 12.5 mg Ondansetron HCl (Zofran Tab) 4 mg PO Q6 PRN PRN Reason: Nausea/Vomiting Pantoprazole Sodium (Protonix Ec Tab) 40 mg PO 0630 [facility] Last Admin: 06/25/17 06:00 Dose: 40 mg Tamsulosin HCl (Flomax) 0.4 mg PO DAILY [facility] Last Admin: 06/25/17 08:39 Dose: 0.4 mg - Labs Labs: 06/19/17 15:55 06/20/17 07:25 - Respiratory Exam Respiratory Exam: Clear to Ausculation Bilateral - Cardiovascular Exam Cardiovascular Exam: REGULAR RHYTHM, +S1, +S2 Assessment and Plan - Assessment and Plan (Free Text) Assessment: CVA HYPERTENSION ATRIAL FLUTTER RECENT LOC-POSSIBLY VASOVAGAL Plan: CONTINUE ASPIRIN, ELIQUIS, METOPROLOL AND ATORVASTATIN CONTINUE PHYSICAL THERAPY
--- NOTE | 2017-06-25 17:26 | CP.PCM.PN ---
Subjective - Date & Time of Evaluation Date of Evaluation: 06/25/17 Time of Evaluation: 17:25 - Subjective Subjective: Patient seen in PT, doing well denies pain or SOB motivated for therapies continue current care Objective - Vital Signs/Intake and Output Vital Signs (last 24 hours): Temp Pulse Resp BP Pulse Ox 98.3 F 89 20 135/81 97 06/25/17 08:05 06/25/17 13:05 06/25/17 08:05 06/25/17 08:40 06/25/17 13:05 - Medications Medications: Current Medications Acetaminophen (Tylenol 325mg Tab) 650 mg PO Q6 PRN PRN Reason: pain scale 4-10 or headache. Apixaban (Eliquis) 2.5 mg PO Q12 [facility] PRN Reason: Protocol Aspirin (Aspirin Chewable) 81 mg PO DAILY [facility] Last Admin: 06/25/17 08:38 Dose: 81 mg Atorvastatin Calcium (Lipitor) 40 mg PO HS [facility] Last Admin: 06/24/17 21:13 Dose: 40 mg Finasteride (Proscar) 5 mg PO DAILY [facility] Last Admin: 06/25/17 08:39 Dose: 5 mg Lactic Acid (Lac-Hydrin 12% Lotion (225 G)) 1 applic TOP Q8 [facility] Last Admin: 06/25/17 13:05 Dose: 1 applic Metoprolol Tartrate (Lopressor) 12.5 mg PO Q12 [facility] Last Admin: 06/25/17 08:40 Dose: 12.5 mg Ondansetron HCl (Zofran Tab) 4 mg PO Q6 PRN PRN Reason: Nausea/Vomiting Pantoprazole Sodium (Protonix Ec Tab) 40 mg PO 0630 [facility] Last Admin: 06/25/17 06:00 Dose: 40 mg Tamsulosin HCl (Flomax) 0.4 mg PO DAILY [facility] Last Admin: 06/25/17 08:39 Dose: 0.4 mg - Labs Labs: 06/19/17 15:55 06/20/17 07:25
--- NOTE | 2017-06-26 01:57 | PN ---
DATE: 06/25/2017 SUBJECTIVE: The patient was seen today, 06/25/2017. He is not in any cardiopulmonary distress. The patient is cooperative to physical therapy and occupational therapy. PHYSICAL EXAMINATION VITAL SIGNS: Blood pressure is 135/81, temperature 98.3, respiratory rate 20, and pulse 90. HEENT: Pupils equal, reactive to light. Normal-appearing mucosa of the conjunctivae, oropharynx, and nasal membrane mucosa. NECK: Supple. No JVD. No carotid bruit. No lymph node. No thyromegaly. CHEST AND LUNGS: Bilateral symmetrical expansion. Good air exchange. No rales. No rhonchi. CARDIOVASCULAR: PMI not localized. S1, S2. No additional sounds. ABDOMEN: Normoactive bowel sounds. No tenderness. No organomegaly. No masses. EXTREMITIES: No cyanosis, no clubbing, no edema. ORTHOTICS PROSTHETICS ASSISTANT: Alert, awake, and oriented x2. The patient has slight left-sided weakness compared to the right. ASSESSMENT: 1. Cerebrovascular accident with left-sided weakness. 2. Hypertension. 3. Chronic kidney disease. PLAN: Continue current physical therapy and occupational therapy. Followup urology recommendations regarding the bilateral hydronephrosis. Continue anticoagulants for the atrial fibrillation. Speedy Martinez MD
[2017-06-26] MEDS: Pantoprazole 40 mg EC Tab PO SCH (06:30)
--- NOTE | 2017-06-26 11:12 | CP.PCM.CON ---
History of Present Illness - History of Present Illness History of Present Illness: 72 y/o male seen by podiatry on the floor for elongated toenails. Patient states he came into the hospital because he had a stroke and has not been able to manage his normal foot care. Patient denies any pain in the toenails. Patient relates that he has diabetes, high blood pressure, and a weak heart. Patient admits to left sided weakness following his stroke. Patient states he normally lotions the feet and dries between the toes but has been unable to properly care for himself since admission. Patient denies any F/C/N/V/SOB PSH: denies Social: social EtOH; denies cigarette or drug use All: NKDA Review of Systems - Review of Systems All systems: reviewed and no additional remarkable complaints except (per HPI) Past Patient History - Past Medical History & Family History Past Medical History?: Yes - Past Social History Smoking Status: Former Smoker Alcohol: Occasional Drugs: Denies Home Situation {Lives}: With Family - CARDIAC Hx Cardiac Disorders: Yes Hx Hypertension: Yes - PULMONARY Hx Respiratory Disorders: No - NEUROLOGICAL HX Cerebrovascular Accident: Yes - HEENT Hx HEENT Problems: Yes Other/Comment: Pt uses glasses for reading. - RENAL Hx Chronic Kidney Disease: Yes Other/Comment: hx of Hyponatremia - ENDOCRINE/METABOLIC Hx Diabetes Mellitus Type 2: Yes - HEMATOLOGICAL/ONCOLOGICAL Hx Blood Disorders: No Hx AIDS: No Hx Human Immunodeficiency Virus (HIV): No - INTEGUMENTARY Hx Dermatological Problems: No - MUSCULOSKELETAL/RHEUMATOLOGICAL Hx Falls: Yes (x1) Other/Comment: hx of chronic left hip pain - GASTROINTESTINAL Hx Gastrointestinal Disorders: No - GENITOURINARY/GYNECOLOGICAL Hx Genitourinary Disorders: Yes Hx Incontinence: Yes - PSYCHIATRIC Hx Psychophysiologic Disorder: No Hx Substance Use: No - SURGICAL HISTORY Hx Surgeries: No - ANESTHESIA Hx Anesthesia: No Hx Anesthesia Reactions: (NA) Hx Malignant Hyperthermia: No Meds Allergies/Adverse Reactions: Allergies Allergy/AdvReac Type Severity Reaction Status Date / Time No Known Allergies Allergy Verified 06/18/17 20:24 - Medications Medications: Current Medications Acetaminophen (Tylenol 325mg Tab) 650 mg PO Q6 PRN PRN Reason: pain scale 4-10 or headache. Apixaban (Eliquis) 2.5 mg PO Q12 [facility] PRN Reason: Protocol Last Admin: 06/26/17 08:32 Dose: 2.5 mg Aspirin (Aspirin Chewable) 81 mg PO DAILY [facility] Last Admin: 06/26/17 08:32 Dose: 81 mg Atorvastatin Calcium (Lipitor) 40 mg PO HS [facility] Last Admin: 06/25/17 21:14 Dose: 40 mg Ciprofloxacin (Cipro) 250 mg PO Q12 [facility] Last Admin: 06/26/17 08:32 Dose: 250 mg Finasteride (Proscar) 5 mg PO DAILY [facility] Last Admin: 06/26/17 08:32 Dose: 5 mg Lactic Acid (Lac-Hydrin 12% Lotion (225 G)) 1 applic TOP Q8 [facility] Last Admin: 06/26/17 06:29 Dose: 1 applic Metoprolol Tartrate (Lopressor) 12.5 mg PO Q12 [facility] Last Admin: 06/26/17 08:31 Dose: 12.5 mg Ondansetron HCl (Zofran Tab) 4 mg PO Q6 PRN PRN Reason: Nausea/Vomiting Pantoprazole Sodium (Protonix Ec Tab) 40 mg PO 0630 [facility] Last Admin: 06/26/17 06:30 Dose: 40 mg Tamsulosin HCl (Flomax) 0.4 mg PO DAILY [facility] Last Admin: 06/26/17 08:32 Dose: 0.4 mg Physical Exam - Constitutional Appears: Well, Non-toxic, No Acute Distress - Extremities Exam Additional comments: Vasc: DP pulses 2/4 B/L, PT pulses faint 1/4 B/L. Non-pitting edema noted to perimalleolar region B/L. Temperature gradient WNL. Derm: IDM noted to all interspaces. Mild pantar xerosis noted B/L. Elongated dystrophic toenails x 10. No erythema, no open lesions, no clinical signs of infection Neuro: Protective sensation grossly intact to R, diminished on L Ortho: Mild tenderness on palpation of toenails. Muscle strength WNL on R, diminished on L. - Neurological Exam Neurological exam: Alert, Oriented x3 - Psychiatric Exam Psychiatric exam: Normal Affect, Normal Mood Results - Vital Signs Recent Vital Signs: Last Vital Signs Temp 97.7 F 06/26/17 08:00 Pulse 93 H 06/26/17 08:31 Resp 18 06/26/17 08:00 BP 142/62 06/26/17 08:31 Pulse Ox 99 06/26/17 08:00 - Labs Result Diagrams: 06/19/17 15:55 06/20/17 07:25 Labs: Laboratory Results - last 24 hr 06/25/17 06/25/17 06/26/17 05:57 21:03 05:49 POC Glucose (mg/dL) 127 H 237 H 168 H Assessment & Plan - Assessment and Plan (Free Text) Assessment: 72 y/o male with elongated dystrophic toenails Plan: Pt seen and evaluated at bedside Discussed plan with attending Dr. Jewell Chart, labs and vitals reviewed - afebrile Aseptic excisional debridement of elongated toenails with sterile nail nippers Pt tolerated procedure without incident Application of betadine to interdigital spaces with 4x4 gauze Podiatry to sign off at this time Thank you for the consult
--- NOTE | 2017-06-26 12:05 | PSY.TMCNF ---
Nursing - Vital Signs Vital Signs (Last 8 hours): Vital Signs 06/26/17 06/26/17 06/26/17 08:00 08:31 11:31 Temperature 97.7 F 97.7 F Pulse Rate 93 H 93 H 93 H Respiratory 18 18 Rate Blood Pressure 142/62 142/62 142/62 O2 Sat by Pulse 99 Oximetry Pain: 0 - Precautions: Precautions: Fall Prevention, Aspiration, Cardiac/Pulmonary - Medications/Other Issues Comment: on cipro q12h for uti seen by podiatry for toenails - Consults Comment: DR Jesus Mistry,Dr Larios ,Dr Gomez,Dr Jewell,Dr Gibson - Toileting Toileting: Maximal Assistance - Bladder Management Bladder Pattern: Frequency, Incontinent Voiding Method: Urinal, Diaper Bladder Management: Dependent Frequency of Accidents: 4x - Bowel Management Bowel Pattern: Normal Bowel Management: Moderate Assistance - Transfers Transfers: Moderate Assistance - ADL's ADL's: Moderate Assistance - Pain Management Comments: denies any pain on tylenol for pain - Patient/Family Teaching Comments: safety ,fall medication teachings - Goals/Time Frame Comments: as per interdiciplinary plan of care - Provider Provider: Hetal Amaro Physical Therapy - Bed Mobility Bed Mobility: Verbal Cues, Minimal Assistance - Transfers Wheelchair to Mat: Verbal Cues, Moderate Assistance Sit to Stand: Verbal Cues, Minimal Assistance, Moderate Assistance - Ambulation Level of Assistance: Verbal Cues, Minimal Assistance Distance (ft.): 100 Assistive Devices: Rolling Walker - Stair Negotiation Stairs: Level of Assistance: Verbal Cues, Moderate Assistance, Maximum Assistance Number of Stairs: 3 Handrails: Bilateral Stairs: Assistive Devices: Left Handrail, Right Handrail - Standing Balance Static Stand: Minimal Assistance Dynamic Stand: Unable to assess/perform - Insight/Carryover Insight/Carryover: Fair - Patient/Family Education Comment: Pt education provided for increased safety awareness and proper tehcniques during functional mobility training. - Assessment/Plan Assessment: Nilesh Hogan presents with 1.) mild cognitive linguistic deficits characterized by mildly delayed auditory processing, mildly impaired short-term recall, and mild verbal reasoning deficits and 2.) minimal dysarthria characterized by intermittently impaired articulatory precision and intelligibility; pt reports that his speech is "slow" in comparison to his norm. Fatigue has been a barrier to learning; pt performs well in tx tasks when attentive and focused, though lethargy negatively impacts his participation. Pt would benefit from ST for improved cognition and intelligibility. - Goals Timeframe: 3 weeks Goals: Sit < > supine wtih supervision. Sit < > stand with RW ad supervision. Pt will ambulate 200 ft with RW and S. Pt will ascend/descend flight of stairs with B handrials and supervision. - Provider License Number: [id number] Occupational Therapy - Arousal/Attention/Orientation Patient Orientation: Person, Place, Time, Appropriate to Age, Appropriate to Situation - ADL/IADL Self Feeding: Modified Independent Grooming: Supervision, Verbal Cues, Set-up Help Bathing-Upper Extremity: Supervision Bathing-Lower Extremity: Maximum Assistance Dressing-Upper Extremity: Minimal Assistance Dressing-Lower Extremity: Maximum Assistance - Sitting Balance Static Sitting: Supervision Dynamic Sitting: Requires supervision - Transfers Wheelchair to Bed Transfers: Moderate Assistance Toilet Transfers: Moderate Assistance - Upper Extremity Status Right Upper Extremity Comment: ROM WFL, MMT grossly 4+/5 Left Upper Extremity Comment: impaired dexterity/fine motor coordination, ROM WFL, L shoulder 3/5 - Insight/Carryover Insight/Carryover: Fair - Patient/Family Education Comment: Pt education provided for increased safety awareness and proper tehcniques during functional mobility training. - Assessment/Plan Assessment: Nilesh Hogan presents with 1.) mild cognitive linguistic deficits characterized by mildly delayed auditory processing, mildly impaired short-term recall, and mild verbal reasoning deficits and 2.) minimal dysarthria characterized by intermittently impaired articulatory precision and intelligibility; pt reports that his speech is "slow" in comparison to his norm. Fatigue has been a barrier to learning; pt performs well in tx tasks when attentive and focused, though lethargy negatively impacts his participation. Pt would benefit from ST for improved cognition and intelligibility. - Goals Timeframe: 3 weeks Goals: Sit < > supine wtih supervision. Sit < > stand with RW ad supervision. Pt will ambulate 200 ft with RW and S. Pt will ascend/descend flight of stairs with B handrials and supervision. - Provider Therapist: Jess Yeung Speech Therapy - Consult Information Patient on Program: Yes Medical Diagnosis: CVA Treatment Diagnosis: cognitive deficits, dysarthria - Assessment Problem Solving Impairment: Mild Memory Impairment: Mild Speech/Articulation Impairment: Mild Comment: minimal dysarthria - Plan Assessment: Nilesh Hogan presents with 1.) mild cognitive linguistic deficits characterized by mildly delayed auditory processing, mildly impaired short-term recall, and mild verbal reasoning deficits and 2.) minimal dysarthria characterized by intermittently impaired articulatory precision and intelligibility; pt reports that his speech is "slow" in comparison to his norm. Fatigue has been a barrier to learning; pt performs well in tx tasks when attentive and focused, though lethargy negatively impacts his participation. Pt would benefit from ST for improved cognition and intelligibility. Plan: Continue Speech/Language Therapy - Provider Therapist: Nereida Melendez License Number: [id number] Recreational Therapy - Assessment Assessment/Plan: Nilesh Hogan presents with 1.) mild cognitive linguistic deficits characterized by mildly delayed auditory processing, mildly impaired short-term recall, and mild verbal reasoning deficits and 2.) minimal dysarthria characterized by intermittently impaired articulatory precision and intelligibility; pt reports that his speech is "slow" in comparison to his norm. Fatigue has been a barrier to learning; pt performs well in tx tasks when attentive and focused, though lethargy negatively impacts his participation. Pt would benefit from ST for improved cognition and intelligibility. Nutrition - Current Diet Current Diet/ Supplement/ Feedings: Heart Heatlhy Moderate consistent CHO 2 gram Na 2 gram K+ soft - Appetite Percent Meal Consumed: 75-100% - Comments Comments: safety ,fall medication teachings - Assessment/Goals/Time Frame Assessment/Goals/Time Frame: on cipro q12h for uti seen by podiatry for toenails - Provider Provider: Lizett Joshi RD Case Management - Discharge Plan Discharge Plan: Home with significant other/family (10 steps) Rehabilitation Plan - Treatment Plan Treatment Plan: Physical Therapy, Occupational Therapy, Speech, Dietary, Patient /Family Education - Discharge Plan Estimated Date of Discharge: 07/12/17 Discharge to: Subacute
--- NOTE | 2017-06-26 12:09 | CP.PCM.PN ---
Subjective - Date & Time of Evaluation Date of Evaluation: 06/26/17 Time of Evaluation: 12:08 - Subjective Subjective: Patient seen in room poor insight and fluctuating greatly in therapies will not be able to d/c home and will likely need JENNY, but making very good gains in spite of the above and was able to ambulate 100' continue current care Objective - Vital Signs/Intake and Output Vital Signs (last 24 hours): Temp Pulse Resp BP Pulse Ox 97.7 F 93 H 18 142/62 99 06/26/17 11:31 06/26/17 11:31 06/26/17 11:31 06/26/17 11:31 06/26/17 08:00 - Medications Medications: Current Medications Acetaminophen (Tylenol 325mg Tab) 650 mg PO Q6 PRN PRN Reason: pain scale 4-10 or headache. Apixaban (Eliquis) 2.5 mg PO Q12 [facility] PRN Reason: Protocol Last Admin: 06/26/17 08:32 Dose: 2.5 mg Aspirin (Aspirin Chewable) 81 mg PO DAILY [facility] Last Admin: 06/26/17 08:32 Dose: 81 mg Atorvastatin Calcium (Lipitor) 40 mg PO HS [facility] Last Admin: 06/25/17 21:14 Dose: 40 mg Ciprofloxacin (Cipro) 250 mg PO Q12 [facility] Last Admin: 06/26/17 08:32 Dose: 250 mg Finasteride (Proscar) 5 mg PO DAILY [facility] Last Admin: 06/26/17 08:32 Dose: 5 mg Lactic Acid (Lac-Hydrin 12% Lotion (225 G)) 1 applic TOP Q8 [facility] Last Admin: 06/26/17 06:29 Dose: 1 applic Metoprolol Tartrate (Lopressor) 12.5 mg PO Q12 [facility] Last Admin: 06/26/17 08:31 Dose: 12.5 mg Ondansetron HCl (Zofran Tab) 4 mg PO Q6 PRN PRN Reason: Nausea/Vomiting Pantoprazole Sodium (Protonix Ec Tab) 40 mg PO 0630 [facility] Last Admin: 06/26/17 06:30 Dose: 40 mg Tamsulosin HCl (Flomax) 0.4 mg PO DAILY [facility] Last Admin: 06/26/17 08:32 Dose: 0.4 mg - Labs Labs: 06/19/17 15:55 06/20/17 07:25
--- NOTE | 2017-06-26 13:36 | CP.PCM.PN ---
Subjective - Date & Time of Evaluation Date of Evaluation: 06/26/17 Time of Evaluation: 11:30 - Subjective Subjective: NO COMPLAINTS Objective - Vital Signs/Intake and Output Vital Signs (last 24 hours): Temp Pulse Resp BP Pulse Ox 97.7 F 93 H 18 142/62 99 06/26/17 11:31 06/26/17 11:31 06/26/17 11:31 06/26/17 11:31 06/26/17 08:00 - Medications Medications: Current Medications Acetaminophen (Tylenol 325mg Tab) 650 mg PO Q6 PRN PRN Reason: pain scale 4-10 or headache. Apixaban (Eliquis) 2.5 mg PO Q12 [facility] PRN Reason: Protocol Last Admin: 06/26/17 08:32 Dose: 2.5 mg Aspirin (Aspirin Chewable) 81 mg PO DAILY [facility] Last Admin: 06/26/17 08:32 Dose: 81 mg Atorvastatin Calcium (Lipitor) 40 mg PO HS [facility] Last Admin: 06/25/17 21:14 Dose: 40 mg Ciprofloxacin (Cipro) 250 mg PO Q12 [facility] Last Admin: 06/26/17 08:32 Dose: 250 mg Finasteride (Proscar) 5 mg PO DAILY [facility] Last Admin: 06/26/17 08:32 Dose: 5 mg Lactic Acid (Lac-Hydrin 12% Lotion (225 G)) 1 applic TOP Q8 [facility] Last Admin: 06/26/17 13:14 Dose: 1 applic Metoprolol Tartrate (Lopressor) 12.5 mg PO Q12 [facility] Last Admin: 06/26/17 08:31 Dose: 12.5 mg Ondansetron HCl (Zofran Tab) 4 mg PO Q6 PRN PRN Reason: Nausea/Vomiting Pantoprazole Sodium (Protonix Ec Tab) 40 mg PO 0630 [facility] Last Admin: 06/26/17 06:30 Dose: 40 mg Tamsulosin HCl (Flomax) 0.4 mg PO DAILY [facility] Last Admin: 06/26/17 08:32 Dose: 0.4 mg - Labs Labs: 06/19/17 15:55 06/20/17 07:25 - Respiratory Exam Respiratory Exam: Clear to Ausculation Bilateral - Cardiovascular Exam Cardiovascular Exam: REGULAR RHYTHM, +S1, +S2 Assessment and Plan - Assessment and Plan (Free Text) Assessment: RECENT CVA ATRIAL FLUTTER HYPERTENSION HYPERLIPIDEMIA Plan: CONTINUE ASPIRIN, ELIQUIS, ATORVASTATIN, METOPROLOL
[2017-06-27] MEDS: Pantoprazole 40 mg EC Tab PO SCH (06:34)
--- NOTE | 2017-06-27 10:30 | CP.PCM.PN ---
Subjective - Date & Time of Evaluation Date of Evaluation: 06/27/17 Time of Evaluation: 09:45 - Subjective Subjective: NO CHEST PAIN OR SOB Objective - Vital Signs/Intake and Output Vital Signs (last 24 hours): Temp Pulse Resp BP Pulse Ox 98.2 F 90 19 136/91 H 98 06/27/17 08:58 06/27/17 08:58 06/27/17 08:58 06/27/17 08:58 06/27/17 08:58 - Medications Medications: Current Medications Acetaminophen (Tylenol 325mg Tab) 650 mg PO Q6 PRN PRN Reason: pain scale 4-10 or headache. Apixaban (Eliquis) 2.5 mg PO Q12 [facility] PRN Reason: Protocol Last Admin: 06/27/17 08:39 Dose: 2.5 mg Aspirin (Aspirin Chewable) 81 mg PO DAILY [facility] Last Admin: 06/27/17 08:38 Dose: 81 mg Atorvastatin Calcium (Lipitor) 40 mg PO HS [facility] Last Admin: 06/26/17 21:20 Dose: 40 mg Ciprofloxacin (Cipro) 250 mg PO Q12 [facility] Last Admin: 06/27/17 08:37 Dose: 250 mg Finasteride (Proscar) 5 mg PO DAILY [facility] Last Admin: 06/27/17 08:39 Dose: 5 mg Lactic Acid (Lac-Hydrin 12% Lotion (225 G)) 1 applic TOP Q8 [facility] Last Admin: 06/27/17 06:34 Dose: 1 applic Metoprolol Tartrate (Lopressor) 12.5 mg PO Q12 [facility] Last Admin: 06/27/17 08:37 Dose: 12.5 mg Ondansetron HCl (Zofran Tab) 4 mg PO Q6 PRN PRN Reason: Nausea/Vomiting Pantoprazole Sodium (Protonix Ec Tab) 40 mg PO 0630 [facility] Last Admin: 06/27/17 06:34 Dose: 40 mg Tamsulosin HCl (Flomax) 0.4 mg PO DAILY [facility] Last Admin: 06/27/17 08:37 Dose: 0.4 mg - Labs Labs: 06/19/17 15:55 06/20/17 07:25 - Respiratory Exam Respiratory Exam: Clear to Ausculation Bilateral - Cardiovascular Exam Cardiovascular Exam: REGULAR RHYTHM, +S1, +S2 - Extremities Exam Extremities Exam: Normal Inspection Assessment and Plan - Assessment and Plan (Free Text) Assessment: RECENT CVA ATRIAL FLUTTER HYPERTENSION HYPERLIPIDEMIA Plan: CONTINUE ASPIRIN, ELIQUIS, METOPROLOL AND ATORVASTATIN CONTINUE ACUTE REHAB
[2017-06-27] MEDS ORDERED: Magnesium Citrate Oral SOL (300 ml) PO ONE (17:30)
--- NOTE | 2017-06-27 18:00 | CP.PCM.PN ---
Subjective - Date & Time of Evaluation Date of Evaluation: 06/27/17 Time of Evaluation: 18:00 - Subjective Subjective: Patient seen in room nursing present no dizziness today working in PT still a min/mod A for transfers continue current care Objective - Vital Signs/Intake and Output Vital Signs (last 24 hours): Temp Pulse Resp BP Pulse Ox 98.2 F 94 H 19 136/91 H 98 06/27/17 08:58 06/27/17 11:47 06/27/17 08:58 06/27/17 08:58 06/27/17 08:58 - Medications Medications: Current Medications Acetaminophen (Tylenol 325mg Tab) 650 mg PO Q6 PRN PRN Reason: pain scale 4-10 or headache. Apixaban (Eliquis) 2.5 mg PO Q12 [facility] PRN Reason: Protocol Last Admin: 06/27/17 08:39 Dose: 2.5 mg Aspirin (Aspirin Chewable) 81 mg PO DAILY [facility] Last Admin: 06/27/17 08:38 Dose: 81 mg Atorvastatin Calcium (Lipitor) 40 mg PO HS [facility] Last Admin: 06/26/17 21:20 Dose: 40 mg Ciprofloxacin (Cipro) 250 mg PO Q12 [facility] Last Admin: 06/27/17 08:37 Dose: 250 mg Finasteride (Proscar) 5 mg PO DAILY [facility] Last Admin: 06/27/17 08:39 Dose: 5 mg Lactic Acid (Lac-Hydrin 12% Lotion (225 G)) 1 applic TOP Q8 [facility] Last Admin: 06/27/17 13:59 Dose: 1 applic Metoprolol Tartrate (Lopressor) 12.5 mg PO Q12 [facility] Last Admin: 06/27/17 08:37 Dose: 12.5 mg Ondansetron HCl (Zofran Tab) 4 mg PO Q6 PRN PRN Reason: Nausea/Vomiting Pantoprazole Sodium (Protonix Ec Tab) 40 mg PO 0630 [facility] Last Admin: 06/27/17 06:34 Dose: 40 mg Tamsulosin HCl (Flomax) 0.4 mg PO DAILY [facility] Last Admin: 06/27/17 08:37 Dose: 0.4 mg - Labs Labs: 06/19/17 15:55 06/20/17 07:25
--- NOTE | 2017-06-27 23:49 | PN ---
DATE: 06/27/2017 SUBJECTIVE: The patient is seen today, 06/27/2017. He is cooperative to physical therapy and occupational therapy. PHYSICAL EXAMINATION VITAL SIGNS: Blood pressure is 134/89, temperature 98.0, respiratory rate 20, and pulse 86. HEENT: Pupils equal, reactive to light. Normal-appearing mucosa of the conjunctivae, oropharyngeal, nasal membrane mucosa. NECK: Supple. No JVD. No carotid bruit. No lymph node. No thyromegaly. CHEST AND LUNGS: Bilateral symmetrical expansion. Good air exchange. No rales. No rhonchi. CARDIOVASCULAR: PMI not localized. S1, S2. No additional sounds. ABDOMEN: Normoactive bowel sounds. No tenderness. No organomegaly. No masses. EXTREMITIES: No cyanosis, no clubbing, no edema. CENTRAL NERVOUS SYSTEM: Alert, awake, and oriented x2. No neurological deficit could be appreciated except for a slight left-sided weakness. ASSESSMENT: 1. Cerebrovascular accident with left-sided weakness. 2. Hypertension. 3. Bilateral hydronephrosis. 4. Benign prostatic hypertrophy. PLAN: Continue current medication management and followup urology recommendations. Mary MD Juan
[2017-06-28] MEDS: Pantoprazole 40 mg EC Tab PO SCH (06:09)
--- NOTE | 2017-06-28 13:21 | CP.PCM.PN ---
Subjective - Date & Time of Evaluation Date of Evaluation: 06/28/17 Time of Evaluation: 07:15 - Subjective Subjective: NO CHEST PAIN OR SOB Objective - Vital Signs/Intake and Output Vital Signs (last 24 hours): Temp Pulse Resp BP Pulse Ox 98 F 89 20 130/80 98 06/28/17 09:25 06/28/17 09:25 06/28/17 09:25 06/28/17 09:25 06/28/17 09:25 - Medications Medications: Current Medications Acetaminophen (Tylenol 325mg Tab) 650 mg PO Q6 PRN PRN Reason: pain scale 4-10 or headache. Apixaban (Eliquis) 2.5 mg PO Q12 [facility] PRN Reason: Protocol Last Admin: 06/28/17 08:41 Dose: 2.5 mg Aspirin (Aspirin Chewable) 81 mg PO DAILY [facility] Last Admin: 06/28/17 08:40 Dose: 81 mg Atorvastatin Calcium (Lipitor) 40 mg PO HS [facility] Last Admin: 06/27/17 21:05 Dose: 40 mg Ciprofloxacin (Cipro) 250 mg PO Q12 [facility] Last Admin: 06/28/17 08:40 Dose: 250 mg Finasteride (Proscar) 5 mg PO DAILY [facility] Last Admin: 06/28/17 08:41 Dose: 5 mg Lactic Acid (Lac-Hydrin 12% Lotion (225 G)) 1 applic TOP Q8 [facility] Last Admin: 06/28/17 06:08 Dose: 1 applic Metoprolol Tartrate (Lopressor) 12.5 mg PO Q12 [facility] Last Admin: 06/28/17 08:39 Dose: 12.5 mg Ondansetron HCl (Zofran Tab) 4 mg PO Q6 PRN PRN Reason: Nausea/Vomiting Pantoprazole Sodium (Protonix Ec Tab) 40 mg PO 0630 [facility] Last Admin: 06/28/17 06:09 Dose: 40 mg Tamsulosin HCl (Flomax) 0.4 mg PO DAILY@1999 [facility] - Labs Labs: 06/19/17 15:55 06/20/17 07:25 - Respiratory Exam Respiratory Exam: Clear to Ausculation Bilateral - Cardiovascular Exam Cardiovascular Exam: REGULAR RHYTHM, +S1, +S2 - Extremities Exam Extremities Exam: Normal Inspection Assessment and Plan - Assessment and Plan (Free Text) Assessment: RECENT CVA ATRIAL FLUTTER HYPERTENSION HYPERLIPIDEMIA Plan: CONTINUE ASPIRIN, ,ELIQUIS, METOPROLOL AND ATORVASTATIN CONTINUE PHYSICAL THERAPY
[2017-06-29] MEDS: Pantoprazole 40 mg EC Tab PO SCH (06:50)
--- NOTE | 2017-06-29 11:40 | CP.PCM.PN ---
Subjective - Date & Time of Evaluation Date of Evaluation: 06/29/17 Time of Evaluation: 11:39 - Subjective Subjective: Patient seen in room denies sob/cp vss/afebrile continue current care Objective - Vital Signs/Intake and Output Vital Signs (last 24 hours): Temp Pulse Resp BP Pulse Ox 98.2 F 92 H 22 132/77 94 L 06/29/17 08:38 06/29/17 08:38 06/29/17 08:38 06/29/17 08:38 06/29/17 08:38 - Medications Medications: Current Medications Acetaminophen (Tylenol 325mg Tab) 650 mg PO Q6 PRN PRN Reason: pain scale 4-10 or headache. Apixaban (Eliquis) 2.5 mg PO Q12 [facility] PRN Reason: Protocol Last Admin: 06/29/17 08:13 Dose: 2.5 mg Aspirin (Aspirin Chewable) 81 mg PO DAILY [facility] Last Admin: 06/29/17 08:12 Dose: 81 mg Atorvastatin Calcium (Lipitor) 40 mg PO HS [facility] Last Admin: 06/28/17 21:57 Dose: 40 mg Ciprofloxacin (Cipro) 250 mg PO Q12 [facility] Last Admin: 06/29/17 08:11 Dose: 250 mg Finasteride (Proscar) 5 mg PO DAILY [facility] Last Admin: 06/29/17 08:13 Dose: 5 mg Lactic Acid (Lac-Hydrin 12% Lotion (225 G)) 1 applic TOP Q8 [facility] Last Admin: 06/29/17 06:50 Dose: 1 applic Lactulose (Enulose) 20 gm PO BID [facility] Last Admin: 06/29/17 08:12 Dose: 20 gm Metoprolol Tartrate (Lopressor) 12.5 mg PO Q12 [facility] Last Admin: 06/29/17 08:12 Dose: 12.5 mg Ondansetron HCl (Zofran Tab) 4 mg PO Q6 PRN PRN Reason: Nausea/Vomiting Pantoprazole Sodium (Protonix Ec Tab) 40 mg PO 0630 [facility] Last Admin: 06/29/17 06:50 Dose: 40 mg Tamsulosin HCl (Flomax) 0.4 mg PO DAILY@2000 [facility] Last Admin: 06/28/17 21:58 Dose: 0.4 mg - Labs Labs: 06/19/17 15:55 06/20/17 07:25
[2017-06-30] MEDS: Pantoprazole 40 mg EC Tab PO SCH (06:46)
--- NOTE | 2017-06-30 13:21 | CP.PCM.PN ---
Subjective - Date & Time of Evaluation Date of Evaluation: 06/30/17 Time of Evaluation: 12:15 - Subjective Subjective: NO COMPLAINTS STATES HE IS FEELING BETTER Objective - Vital Signs/Intake and Output Vital Signs (last 24 hours): Temp Pulse Resp BP Pulse Ox 97.6 F 77 20 140/69 78 L 06/30/17 10:00 06/30/17 10:00 06/30/17 10:00 06/30/17 10:00 06/30/17 10:00 - Medications Medications: Current Medications Acetaminophen (Tylenol 325mg Tab) 650 mg PO Q6 PRN PRN Reason: pain scale 4-10 or headache. Apixaban (Eliquis) 2.5 mg PO Q12 [facility] PRN Reason: Protocol Last Admin: 06/30/17 08:02 Dose: 2.5 mg Aspirin (Aspirin Chewable) 81 mg PO DAILY [facility] Last Admin: 06/30/17 08:01 Dose: 81 mg Atorvastatin Calcium (Lipitor) 40 mg PO HS [facility] Last Admin: 06/29/17 21:20 Dose: 40 mg Ciprofloxacin (Cipro) 250 mg PO Q12 [facility] Last Admin: 06/30/17 08:02 Dose: 250 mg Finasteride (Proscar) 5 mg PO DAILY [facility] Last Admin: 06/30/17 09:06 Dose: 5 mg Lactic Acid (Lac-Hydrin 12% Lotion (225 G)) 1 applic TOP Q8 [facility] Last Admin: 06/30/17 13:12 Dose: 1 applic Lactulose (Enulose) 20 gm PO BID [facility] Last Admin: 06/30/17 08:02 Dose: 20 gm Metoprolol Tartrate (Lopressor) 12.5 mg PO Q12 [facility] Last Admin: 06/30/17 08:02 Dose: 12.5 mg Ondansetron HCl (Zofran Tab) 4 mg PO Q6 PRN PRN Reason: Nausea/Vomiting Pantoprazole Sodium (Protonix Ec Tab) 40 mg PO 0630 [facility] Last Admin: 06/30/17 06:46 Dose: 40 mg Tamsulosin HCl (Flomax) 0.4 mg PO DAILY@2000 [facility] Last Admin: 06/29/17 20:35 Dose: 0.4 mg - Labs Labs: 06/19/17 15:55 06/20/17 07:25 - Respiratory Exam Respiratory Exam: Clear to Ausculation Bilateral - Cardiovascular Exam Cardiovascular Exam: Irregular Rhythm, +S1, +S2 - Extremities Exam Extremities Exam: Normal Inspection Assessment and Plan - Assessment and Plan (Free Text) Assessment: RECENT CVA ATRIAL FLUTTER HYPERTENSION HYPERLIPIDEMIA Plan: CONTINUE ASPIRIN, ELIQUIS, METOPROLOL AND ATORVASTATIN CONTINUE PHYSICAL THERAPY
--- NOTE | 2017-06-30 20:51 | PN ---
NEUROLOGY PROGRESS NOTE DATE: 06/30/2017 SUBJECTIVE: The patient is lying on the bed, in no acute distress. He denies having any headaches or dizziness. PHYSICAL EXAMINATION: VITAL SIGNS: His blood pressure is 140/69, heart rate is 77 per minute, breathing at a rate of 16 per minute and temperature 97.6 degrees Fahrenheit. HEENT: Normocephalic and atraumatic. NECK: Supple. There are no carotid bruits. LUNGS: Clear. CARDIOVASCULAR: S1 and S2 is audible. No murmurs. ABDOMEN: Soft and nontender. Bowel sounds are present. NEUROLOGIC: Mental status: The patient is awake, alert and oriented to time, place and person. The speech is fluent. Naming and repetition is normal. Memory and cognition are intact. Cranial nerve examination: Pupils are 3 mm bilaterally reactive to light. Visual naranjo are full. Extraocular movements are intact. There is slight decrease in nasolabial fold on the left side. Tongue is midline. Motor examination: Tone is normal. Power is 4-5/5 all over. Reflexes 1+ and symmetrical. Plantars downgoing bilaterally. Cerebellar examination: [id number] shows no dysmetria. IMPRESSION: 1. Cerebrovascular accident. 2. Status post syncope. RECOMMENDATIONS: 1.. The patient had a repeat electroencephalogram done which was normal. 2. The patient is doing quite well. 3. The patient is to be continued on Eliquis for his underlying atrial fibrillation. 4. The patient also to be continued on Lipitor. 5. The patient to have physical therapy. 6. Please continue supportive care and other treatment. Thank you for the opportunity to participate in the care of this patient. Neri Larios MD
--- NOTE | 2017-07-01 01:37 | PN ---
DAILY PROGRESS NOTE DATE: 06/30/2017 SUBJECTIVE: He is not n any cardiopulmonary distress. PHYSICAL EXAMINATION VITAL SIGNS: Blood pressure is 128/78, temperature 97.2, respiratory rate 20, and pulse 89. HEENT: Pupils equal, reactive to light, normal appearing mucosa of the conjunctivae, oropharyngeal and nasal membrane mucosa. NECK: Supple. No JVD, no carotid bruit, no lymph node, no thyromegaly. CHEST AND LUNGS: Bilateral symmetrical expansion. Good air exchange. No rales, no rhonchi. CARDIOVASCULAR SYSTEM: PMI not localized. S1, S2. No additional sounds. ABDOMEN: Normoactive bowel sounds. No tenderness. No organomegaly. No masses. EXTREMITIES: No cyanosis, no clubbing, no edema. CURBING STONECUTTER: Alert, awake, and oriented x2. No neurological deficit could be appreciated except for left-sided weakness. ASSESSMENT: Cerebrovascular accident with left-sided hemiparesis, status post urinary retention secondary to benign prostatic hypertrophy with bilateral hydronephrosis, chronic kidney disease, urinary tract infection. PLAN: Continue current medications and physical therapy and occupational therapy. We will repeat blood work. Speedy Martinez MD
[2017-07-01] MEDS: Pantoprazole 40 mg EC Tab PO SCH (06:31)
[2017-07-01 08:33] LABS: ALB/GLOB RATIO 0.7 (1.0-2.1); BILIRUBIN,TOTAL 0.7 mg/dl (0.2-1.3); CALCIUM 9.4 mg/dL (8.4-10.2); TOTAL PROTEIN 8.5 G/DL (6.3-8.2)
[2017-07-01 08:34] LABS: BASO # 0.1 K/uL (0.0-0.2); EOS # 0.4 K/uL (0.0-0.7); EOS % 7.1 % (0.0-4.0); HEMATOCRIT 32.1 % (35.0-51.0); LYMPH % 16.8 % (20.0-40.0); MEAN CORPUSCULAR HEMOGLOBIN 32.5 pg (27.0-31.0); MEAN CORPUSCULAR HGB CONC 33.4 g/dL (33.0-37.0); MEAN PLATELET VOLUME 10.3 fl (7.2-11.7); MONO # 0.3 K/uL (0.0-0.8); MONO % 5.2 % (0.0-10.0); NEUT # 4.2 K/uL (1.8-7.0); NEUT % 69.9 % (50.0-75.0); NRBC % 0.1 % (0.0-0.0); RED CELL DISTRIBUTION WIDTH 16.2 % (11.5-14.5)
[2017-07-01 08:36] LABS: MEAN CELL VOLUME 97.5 fl (80.0-94.0); POTASSIUM 5.8 MMOL/L (3.6-5.0)
--- NOTE | 2017-07-01 13:44 | CP.PCM.PN ---
Subjective - Date & Time of Evaluation Date of Evaluation: 07/01/17 Time of Evaluation: 10:00 - Subjective Subjective: NO COMPLAINTS DOING BETTER Objective - Vital Signs/Intake and Output Vital Signs (last 24 hours): Temp Pulse Resp BP Pulse Ox 97.5 F L 92 H 20 145/80 100 07/01/17 07:46 07/01/17 08:56 07/01/17 07:46 07/01/17 08:56 07/01/17 07:46 - Medications Medications: Current Medications Acetaminophen (Tylenol 325mg Tab) 650 mg PO Q6 PRN PRN Reason: pain scale 4-10 or headache. Apixaban (Eliquis) 2.5 mg PO Q12 [facility] PRN Reason: Protocol Last Admin: 07/01/17 08:56 Dose: 2.5 mg Aspirin (Aspirin Chewable) 81 mg PO DAILY [facility] Last Admin: 07/01/17 08:58 Dose: 81 mg Atorvastatin Calcium (Lipitor) 40 mg PO HS [facility] Last Admin: 06/30/17 21:02 Dose: 40 mg Ciprofloxacin (Cipro) 250 mg PO Q12 [facility] Last Admin: 07/01/17 08:56 Dose: 250 mg Finasteride (Proscar) 5 mg PO DAILY [facility] Last Admin: 07/01/17 08:57 Dose: 5 mg Lactic Acid (Lac-Hydrin 12% Lotion (225 G)) 1 applic TOP Q8 [facility] Last Admin: 07/01/17 13:08 Dose: 1 applic Lactulose (Enulose) 20 gm PO BID [facility] Last Admin: 07/01/17 08:58 Dose: 20 gm Metoprolol Tartrate (Lopressor) 12.5 mg PO Q12 [facility] Last Admin: 07/01/17 08:56 Dose: 12.5 mg Ondansetron HCl (Zofran Tab) 4 mg PO Q6 PRN PRN Reason: Nausea/Vomiting Pantoprazole Sodium (Protonix Ec Tab) 40 mg PO 0630 [facility] Last Admin: 07/01/17 06:31 Dose: 40 mg Tamsulosin HCl (Flomax) 0.4 mg PO DAILY@2000 [facility] Last Admin: 06/30/17 20:34 Dose: 0.4 mg - Labs Labs: 07/01/17 06:45 07/01/17 06:45 - Respiratory Exam Respiratory Exam: Clear to Ausculation Bilateral - Cardiovascular Exam Cardiovascular Exam: Irregular Rhythm, +S1, +S2 - Extremities Exam Extremities Exam: Normal Inspection Assessment and Plan - Assessment and Plan (Free Text) Assessment: RECENT CVA ATRIAL FLUTTER HYPERTENSION HYPERLIPIDEMIA Plan: CONTINUE METOPROLOL, ATORVASTATIN, ASPIRIN AND ELIQUIS
[2017-07-02 07:08] LABS: BILIRUBIN,TOTAL 0.4 mg/dl (0.2-1.3); CALCIUM 9.3 mg/dL (8.4-10.2); TOTAL PROTEIN 8.4 G/DL (6.3-8.2)
[2017-07-02 07:11] LABS: ALB/GLOB RATIO 0.8 (1.0-2.1)
[2017-07-02 07:12] LABS: POTASSIUM 5.4 MMOL/L (3.6-5.0)
[2017-07-02] MEDS: Pantoprazole 40 mg EC Tab PO SCH (07:18)
--- NOTE | 2017-07-02 08:46 | CP.PCM.PN ---
Subjective - Date & Time of Evaluation Date of Evaluation: 07/02/17 Time of Evaluation: 08:30 - Subjective Subjective: NO CHEST PAIN OR SOB FEELS BETTER STATES HE IS DOING WELL IN REHAB AND IMPROVING Objective - Vital Signs/Intake and Output Vital Signs (last 24 hours): Temp Pulse Resp BP Pulse Ox 98.0 F 91 H 19 150/87 99 07/02/17 08:23 07/02/17 08:35 07/02/17 08:23 07/02/17 08:35 07/02/17 08:23 - Medications Medications: Current Medications Acetaminophen (Tylenol 325mg Tab) 650 mg PO Q6 PRN PRN Reason: pain scale 4-10 or headache. Apixaban (Eliquis) 2.5 mg PO Q12 [facility] PRN Reason: Protocol Last Admin: 07/02/17 08:36 Dose: 2.5 mg Aspirin (Aspirin Chewable) 81 mg PO DAILY [facility] Last Admin: 07/02/17 08:37 Dose: 81 mg Atorvastatin Calcium (Lipitor) 40 mg PO HS [facility] Last Admin: 07/01/17 21:28 Dose: 40 mg Ciprofloxacin (Cipro) 250 mg PO Q12 [facility] Last Admin: 07/02/17 08:35 Dose: 250 mg Finasteride (Proscar) 5 mg PO DAILY [facility] Last Admin: 07/02/17 08:36 Dose: 5 mg Lactic Acid (Lac-Hydrin 12% Lotion (225 G)) 1 applic TOP Q8 [facility] Last Admin: 07/02/17 07:18 Dose: 1 applic Lactulose (Enulose) 20 gm PO BID [facility] Last Admin: 07/02/17 08:37 Dose: 20 gm Metoprolol Tartrate (Lopressor) 12.5 mg PO Q12 [facility] Last Admin: 07/02/17 08:35 Dose: 12.5 mg Ondansetron HCl (Zofran Tab) 4 mg PO Q6 PRN PRN Reason: Nausea/Vomiting Pantoprazole Sodium (Protonix Ec Tab) 40 mg PO 0630 [facility] Last Admin: 07/02/17 07:18 Dose: 40 mg Tamsulosin HCl (Flomax) 0.4 mg PO DAILY@2000 [facility] Last Admin: 07/01/17 20:24 Dose: 0.4 mg - Labs Labs: 07/01/17 06:45 07/02/17 06:30 - Respiratory Exam Respiratory Exam: Clear to Ausculation Bilateral - Cardiovascular Exam Cardiovascular Exam: Irregular Rhythm, +S1, +S2 - Extremities Exam Extremities Exam: Normal Inspection Assessment and Plan - Assessment and Plan (Free Text) Assessment: RECENT CVA ATRIAL FLUTTER HYPERTENSION HYPERLIPIDEMIA Plan: CONTINUE ASPIRIN, ELIQUIS, METOPROLOL AND ATORVASTATIN CONTINUE REHAB
--- NOTE | 2017-07-02 12:01 | CP.PCM.PN ---
Subjective - Date & Time of Evaluation Date of Evaluation: 07/02/17 Time of Evaluation: 11:00 - Subjective Subjective: no acute complaints at present of any pain Objective - Vital Signs/Intake and Output Vital Signs (last 24 hours): Temp Pulse Resp BP Pulse Ox 98.0 F 91 H 19 150/87 99 07/02/17 09:00 07/02/17 09:00 07/02/17 09:00 07/02/17 09:00 07/02/17 08:23 - Medications Medications: Current Medications Acetaminophen (Tylenol 325mg Tab) 650 mg PO Q6 PRN PRN Reason: pain scale 4-10 or headache. Apixaban (Eliquis) 2.5 mg PO Q12 [facility] PRN Reason: Protocol Last Admin: 07/02/17 08:36 Dose: 2.5 mg Aspirin (Aspirin Chewable) 81 mg PO DAILY [facility] Last Admin: 07/02/17 08:37 Dose: 81 mg Atorvastatin Calcium (Lipitor) 40 mg PO HS [facility] Last Admin: 07/01/17 21:28 Dose: 40 mg Finasteride (Proscar) 5 mg PO DAILY [facility] Last Admin: 07/02/17 08:36 Dose: 5 mg Lactic Acid (Lac-Hydrin 12% Lotion (225 G)) 1 applic TOP Q8 [facility] Last Admin: 07/02/17 07:18 Dose: 1 applic Lactulose (Enulose) 20 gm PO BID [facility] Last Admin: 07/02/17 08:37 Dose: 20 gm Metoprolol Tartrate (Lopressor) 12.5 mg PO Q12 [facility] Last Admin: 07/02/17 08:35 Dose: 12.5 mg Ondansetron HCl (Zofran Tab) 4 mg PO Q6 PRN PRN Reason: Nausea/Vomiting Pantoprazole Sodium (Protonix Ec Tab) 40 mg PO 0630 [facility] Last Admin: 07/02/17 07:18 Dose: 40 mg Tamsulosin HCl (Flomax) 0.4 mg PO DAILY@2000 [facility] Last Admin: 07/01/17 20:24 Dose: 0.4 mg - Labs Labs: 07/01/17 06:45 07/02/17 06:30 - Head Exam Head Exam: ATRAUMATIC, NORMAL INSPECTION, NORMOCEPHALIC - Eye Exam Eye Exam: EOMI, Normal appearance, PERRL Pupil Exam: NORMAL ACCOMODATION - ENT Exam ENT Exam: Mucous Membranes Moist, Normal Exam - Neck Exam Neck Exam: Full ROM, Normal Inspection - Respiratory Exam Respiratory Exam: NORMAL BREATHING PATTERN - Cardiovascular Exam Cardiovascular Exam: REGULAR RHYTHM - GI/Abdominal Exam GI & Abdominal Exam: Normal Bowel Sounds - Rectal Exam Rectal Exam: NORMAL INSPECTION - Exam External exam: NORMAL EXTERNAL EXAM - Extremities Exam Extremities Exam: Full ROM, Normal Capillary Refill - Back Exam Back Exam: NORMAL INSPECTION - Neurological Exam Neurological Exam: Alert, Awake, Normal Gait Neuro motor strength exam: Left Upper Extremity: 3, Right Upper Extremity: 3, Left Lower Extremity: 3, Right Lower Extremity: 3 - Psychiatric Exam Psychiatric exam: Normal Affect, Normal Mood - Skin Skin Exam: Dry, Intact Assessment and Plan - Assessment and Plan (Free Text) Assessment: CVA, Htn, DM AT FIB plan for physical, occupational and rec therapy team conference for tomorrow
[2017-07-02] MEDS ORDERED: Sod Polystyrene Sulf 15 gm/60 ml Oral Susp PO ONE (20:00)
[2017-07-03] MEDS: Pantoprazole 40 mg EC Tab PO SCH (06:03)
--- NOTE | 2017-07-03 11:30 | PCM.RRT ---
<Tristin Diazo - Last Filed: 07/03/17 11:43> BUTTER PRINTER Nurse Assessment - Situation BUTTER PRINTER Responder Arrival Time: 11:01 BUTTER PRINTER Reason for Call: Change in Mental Status - IV IV Inserted during BUTTER PRINTER?: No I.Reason for BUTTER PRINTER - A) Acute Change in Patient: (Select all that apply): Acute change in mental status - Neurological Status (Select all that apply): Confused, Lethargic. absent: Alert - Respiratory Oxygen Delivery Method: Room Air - Constitutional Appears: Confused - Head Head Exam: ATRAUMATIC, NORMAL INSPECTION, NORMOCEPHALIC - Eyes Eye Exam: Normal appearance - Respiratory Exam Respiratory Exam: NORMAL BREATHING PATTERN - Cardiovascular Exam Cardiovascular Exam: Irregular Rhythm, +S1, +S2 Plan - Assessment of Findings&Treatment Plan An BUTTER PRINTER was called on a 72 y/o M who was fainted with eyes rolled back after having a bowel movement. No tremor, seizure-like activity, self-urination, bitten tongue or vomiting was reported. -Upon arrival, pt with altered mental status. VS: HR 86, BP 134/62. -Atrial flutter was present on monitor. -Blood pressure was re-measured: 173/96 supine, 130/95 lying. -Midrodine was applied. After several seconds, pt slowly became responsive to stimuli and returned to baseline. -Similar episode occurred last week, pt vomited and fainted after having a bowel movement. Head CT, CBC, troponin, Mg, Phos and CPK on this event were unremarkable -Pt in rehabilitation unit as per s/p CVA physical therapy rehabilitation. A: 72 y/o M with a PMHx of HTN, DM, Afib, CVA and CKD had a syncopal episode. P: Syncopal episode, vaso-vagal etiology vs Orthostatic hypotension. -CBC, BMP, prolactin and troponin were ordered. -Dr aMrtinez [facility] was contacted and reported about this episode. <Shirlene Reddy - Last Filed: 07/03/17 18:11> BUTTER PRINTER Nurse Assessment - Vital Signs Vital Signs: Rapid Response Vital Sign Blood Pressure 173/96 Pulse Rate 90 Respiratory Rate 18 - Vital Signs at end of BUTTER PRINTER Vital Signs at end of BUTTER PRINTER: Rapid Response End Vital Sign Blood Pressure 141/82 Pulse Rate 88 Attending/Attestation - Attestation I have personally seen and examined this patient.: Yes I have fully participated in the care of the patient.: Yes I have reviewed all pertinent clinical information, including history, physical exam and plan: Yes Notes (Text): SYNCOPE prob sec to Orthostatic Hypotension VS Vasovagal - pt had similar episodes in the past - pt has been extensively worked up by Cardio and Neuro- -BP sitting was 130/62 rpt on supine was 170/90 - Midodrine was ordered this am by Dr Martinez however has not been started yet - EKG - no change from previous - A flutter Discussed case with pt PMD - Dr Martinez and Cardio - DR Gibson - rec to keep pt in Rehab - cont Midodrine
[2017-07-03 11:33] LABS: HEMATOCRIT 31.4 % (35.0-51.0); MEAN CELL VOLUME 88.4 fl (80.0-94.0); MEAN CORPUSCULAR HEMOGLOBIN 28.3 pg (27.0-31.0); WHITE BLOOD COUNT 8.6 K/uL (4.8-10.8)
[2017-07-03 11:54] LABS: CALCIUM 8.9 mg/dL (8.4-10.2); POTASSIUM 4.2 MMOL/L (3.6-5.0)
[2017-07-03 12:05] LABS: TROPONIN I 0.012 ng/mL (0.00-0.120)
--- NOTE | 2017-07-03 12:07 | PSY.TMCNF ---
Nursing - Vital Signs Vital Signs (Last 8 hours): Vital Signs 07/03/17 07/03/17 07/03/17 08:01 08:08 09:25 Temperature 98.4 F 98.4 F Pulse Rate 95 H 95 H 95 H Respiratory 19 19 Rate Blood Pressure 139/85 139/85 139/85 O2 Sat by Pulse 99 Oximetry 07/03/17 11:27 Temperature Pulse Rate 90 Respiratory Rate Blood Pressure O2 Sat by Pulse Oximetry Pain: 0 - Precautions: Precautions: Fall Prevention, Cardiac/Pulmonary - Medications/Other Issues Comment: Hx of atrial fib and sycope episodes. No c/o of chest pain or flutter. Hx of CKD and BPH. On Flomax BUN 51 Creatinine 2.1 K5.3 had Kaexalate 07/02/17 positive BM - Consults Comment: Patricia: . Pia: Cardiac. Podiatry:Lower extremity dryness and nail care - Toileting Toileting: Maximal Assistance - Bladder Management Bladder Pattern: Dribbling Voiding Method: Toilet, Urinal Bladder Management: Maximal Assistance Frequency of Accidents: Still bladder accidents at times due to urgency despite toileting during waking hours - Bowel Management Bowel Pattern: Normal, Constipated, Incontinent Comment: Constipated at times Lactulose ordered Bowel Management: Maximal Assistance Frequency of Accidents: Still with bowel accidents due to Kaexalate - Transfers Transfers: Moderate Assistance - ADL's ADL's: Maximal Assistance - Pain Management Comments: No Pain Management. Assess prn - Patient/Family Teaching Comments: Care post CVA. Medication management. Follow up post discharge with MD as directed - Goals/Time Frame Comments: expected discharge date 07/12/17 - Provider Provider: Karine Mcdaniels RN Physical Therapy - Bed Mobility Bed Mobility: Verbal Cues, Contact Guard, Minimal Assistance - Transfers Sit to Stand: Verbal Cues, Moderate Assistance, Maximum Assistance - Ambulation Assistive Devices: N/A - Stair Negotiation Stairs: Level of Assistance: Not Tested - Standing Balance Static Stand: Contact Guard Assist Dynamic Stand: Minimal Assistance - Pain Pain (assessed during therapy session): 0 - Insight/Carryover Insight/Carryover: Fair - Patient/Family Education Comment: Stroke recovery, safety/fall prevention, safety with RW and DME. Completed education with pt's son, verbalized understanding - Assessment/Plan Assessment: Pt would benefit from continued OT services to address coordination , motor control/apraxia, strength, increasing independence with sit><stand, functional mobility and ADLs in order to decrease caregiver burden and return to home environment. - Goals Timeframe: 3 weeks Goals: MIN A toileting. S toilet txfer. MIN A bathing. MIN A tub txfer. UE dressing S. LE dressing - Provider Therapist: Ashley Lazo PT, DPT License Number: [id number] Occupational Therapy - Arousal/Attention/Orientation Level of Consciousness: Awake, Alert Patient Orientation: Person, Place - ADL/IADL Self Feeding: Independent Grooming: Supervision, Verbal Cues, Set-up Help Dressing-Upper Extremity: Minimal Assistance Dressing-Lower Extremity: Maximum Assistance - Sitting Balance Static Sitting: Supervision Dynamic Sitting: Requires supervision - Transfers Wheelchair to Bed Transfers: Verbal Cues, Set-up Help, Minimal Assistance Toilet Transfers: Moderate Assistance - Upper Extremity Status Right Upper Extremity Comment: ROM and MMT WFL Left Upper Extremity Comment: impaired dexterity/fine motor coordination, - Pain Pain (assessed during therapy session): 0 - Insight/Carryover Insight/Carryover: Fair - Patient/Family Education Comment: Stroke recovery, safety/fall prevention, safety with RW and DME. Completed education with pt's son, verbalized understanding - Assessment/Plan Assessment: Pt would benefit from continued OT services to address coordination , motor control/apraxia, strength, increasing independence with sit><stand, functional mobility and ADLs in order to decrease caregiver burden and return to home environment. - Goals Timeframe: 3 weeks Goals: MIN A toileting. S toilet txfer. MIN A bathing. MIN A tub txfer. UE dressing S. LE dressing - Provider Therapist: Jess Yeung License Number: [id number] Speech Therapy - Consult Information Patient on Program: Yes Medical Diagnosis: CVA Treatment Diagnosis: cognitive deficits, dysarthria - Assessment Problem Solving Impairment: Mild Memory Impairment: Mild Speech/Articulation Impairment: Mild Comment: minimal dysarthria - Plan Assessment: Pt would benefit from continued OT services to address coordination , motor control/apraxia, strength, increasing independence with sit><stand, functional mobility and ADLs in order to decrease caregiver burden and return to home environment. - Provider Therapist: Sindy Oswald License Number: [id number] Recreational Therapy - Assessment Assessment/Plan: Pt would benefit from continued OT services to address coordination, motor control/apraxia, strength, increasing independence with sit> <stand, functional mobility and ADLs in order to decrease caregiver burden and return to home environment. Nutrition - Current Diet Current Diet/ Supplement/ Feedings: Heart Healthy, 2 gm Na, 2 gm K+, Moderate Consistent Carbohydrate, Soft diet - Appetite Percent Meal Consumed: 75-100% - Comments Comments: Care post CVA. Medication management. Follow up post discharge with MD as directed - Assessment/Goals/Time Frame Assessment/Goals/Time Frame: Hx of atrial fib and sycope episodes. No c/o of chest pain or flutter. Hx of CKD and BPH. On Flomax BUN 51 Creatinine 2.1 K5.3 had Kaexalate 07/02/17 positive BM - Provider Provider: Chayito Anderson MS, RD Case Management - Psychosocial Assessment Support Systems: Lives with son; Patient's son Nilesh works, however, is very supportive and involved in care- [phone];. Came in for caregiver training x2 Psychological Interventions/Needs: Patient is alert, however with poor insight and judgement; Pt is often tearful when discussing subacute rehab placement as well as paying his bills at home; Provided emotional support and met with pt and son regarding pt concerns re: bills and importance of not being able to drive at this time Discharge Concerns: Pt with impaired insight and judgement; Son starts working overnights this week; Pt has limited support. Patient/Family Meeting: CM met with pt and spoke with pt's son with pt's consent as well as rehab team Intervention/Goal/Outcome:: 1. Plan: Tentative discharge scheduled for 07/12/17 to subacute rehab (first choice is [facility]) due to proximity from pt's home LAD from insurance is 07/04/17 updates requested at that time 2. Caregiver training initiated with son; Reiterated importance of working on improved judgement and insight - Discharge Plan Discharge Plan: Subacute care - Provider Provider: ORLANDO Damon, BEAUTY OPERATOR License Number: [id number] Rehabilitation Plan - Treatment Plan Treatment Plan: Physical Therapy, Occupational Therapy, Speech, Dietary, Patient /Family Education - Recommendation Recommendation: Physical Therapy, Occupational Therapy, Dietary, Patient/Family Education - Discharge Plan Discharge to: Subacute
--- NOTE | 2017-07-03 13:30 | CP.PCM.PN ---
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 Apixaban (Eliquis) 2.5 mg PO Q12 [facility] PRN Reason: Protocol Last Admin: 07/03/17 08:07 Dose: 2.5 mg Aspirin (Aspirin Chewable) 81 mg PO DAILY [facility] Last Admin: 07/03/17 08:08 Dose: 81 mg Atorvastatin Calcium (Lipitor) 40 mg PO HS [facility] Last Admin: 07/02/17 21:01 Dose: 40 mg Ciprofloxacin (Cipro) 250 mg PO Q12 [facility] Stop: 07/05/17 09:01 Last Admin: 07/03/17 08:07 Dose: 250 mg Finasteride (Proscar) 5 mg PO DAILY [facility] Last Admin: 07/03/17 08:07 Dose: 5 mg Lactic Acid (Lac-Hydrin 12% Lotion (225 G)) 1 applic TOP Q8 [facility] Last Admin: 07/03/17 13:19 Dose: 1 applic Lactulose (Enulose) 20 gm PO BID [facility] Last Admin: 07/03/17 08:11 Dose: Not Given Metoprolol Tartrate (Lopressor) 12.5 mg PO Q12 [facility] Last Admin: 07/03/17 08:08 Dose: 12.5 mg Midodrine (Proamatine) 5 mg PO TID [facility] Last Admin: 07/03/17 13:18 Dose: 5 mg Ondansetron HCl (Zofran Tab) 4 mg PO Q6 PRN PRN Reason: Nausea/Vomiting Pantoprazole Sodium (Protonix Ec Tab) 40 mg PO 0630 [facility] Last Admin: 07/03/17 06:03 Dose: 40 mg Tamsulosin HCl (Flomax) 0.4 mg PO DAILY@2000 [facility] Last Admin: 07/02/17 20:49 Dose: 0.4 mg - Labs Labs: 07/03/17 11:15 07/03/17 11:15 - Head Exam Head Exam: ATRAUMATIC, NORMAL INSPECTION, NORMOCEPHALIC - Eye Exam Eye Exam: EOMI, Normal appearance, PERRL Pupil Exam: NORMAL ACCOMODATION - ENT Exam ENT Exam: Mucous Membranes Moist, Normal Exam - Neck Exam Neck Exam: Normal Inspection - Respiratory Exam Respiratory Exam: NORMAL BREATHING PATTERN - Cardiovascular Exam Cardiovascular Exam: REGULAR RHYTHM - GI/Abdominal Exam GI & Abdominal Exam: Normal Bowel Sounds - Rectal Exam Rectal Exam: NORMAL INSPECTION - Exam External exam: NORMAL EXTERNAL EXAM - Extremities Exam Extremities Exam: Normal Capillary Refill, Normal Inspection - Back Exam Back Exam: NORMAL INSPECTION - Neurological Exam Neurological Exam: Alert, Awake, CN II-XII Intact Neuro motor strength exam: Left Upper Extremity: 3, Right Upper Extremity: 3, Left Lower Extremity: 3, Right Lower Extremity: 3 - Psychiatric Exam Psychiatric exam: Normal Affect, Normal Mood - Skin Skin Exam: Dry, Intact Assessment and Plan (1) Syncope Status: Acute - Assessment and Plan (Free Text) Assessment: CVA, pt, ot rec therapy 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
[2017-07-03] MEDS ORDERED: Sodium Chloride 0.9% 1,000 ML IV SCH (15:30)
--- NOTE | 2017-07-03 15:33 | CP.PCM.PN ---
Subjective - Date & Time of Evaluation Date of Evaluation: 07/03/17 Time of Evaluation: 15:00 - Subjective Subjective: PATIENT SEEN EARLIER THIS MORNING AND WAS DOING WELL PATIENT SEEN AGAIN IN THE AFTERNOON AFTER BUTTON PUNCHER AND WAS STABLE Objective - Vital Signs/Intake and Output Vital Signs (last 24 hours): Temp Pulse Resp BP Pulse Ox 98.4 F 90 19 139/85 99 07/03/17 09:25 07/03/17 11:27 07/03/17 09:25 07/03/17 09:25 07/03/17 08:01 - Medications Medications: Current Medications Acetaminophen (Tylenol 325mg Tab) 650 mg PO Q6 PRN PRN Reason: pain scale 4-10 or headache. Apixaban (Eliquis) 2.5 mg PO Q12 [facility] PRN Reason: Protocol Last Admin: 07/03/17 08:07 Dose: 2.5 mg Aspirin (Aspirin Chewable) 81 mg PO DAILY [facility] Last Admin: 07/03/17 08:08 Dose: 81 mg Atorvastatin Calcium (Lipitor) 40 mg PO HS [facility] Last Admin: 07/02/17 21:01 Dose: 40 mg Ciprofloxacin (Cipro) 250 mg PO Q12 [facility] Stop: 07/05/17 09:01 Last Admin: 07/03/17 08:07 Dose: 250 mg Finasteride (Proscar) 5 mg PO DAILY [facility] Last Admin: 07/03/17 08:07 Dose: 5 mg Sodium Chloride (Sodium Chloride 0.9%) 1,000 mls @ 70 mls/hr IV .[id number] [facility] Stop: 07/04/17 15:28 Lactic Acid (Lac-Hydrin 12% Lotion (225 G)) 1 applic TOP Q8 [facility] Last Admin: 07/03/17 13:19 Dose: 1 applic Lactulose (Enulose) 20 gm PO BID [facility] Last Admin: 07/03/17 08:11 Dose: Not Given Metoprolol Tartrate (Lopressor) 12.5 mg PO Q12 [facility] Last Admin: 07/03/17 08:08 Dose: 12.5 mg Midodrine (Proamatine) 5 mg PO TID [facility] Last Admin: 07/03/17 13:18 Dose: 5 mg Ondansetron HCl (Zofran Tab) 4 mg PO Q6 PRN PRN Reason: Nausea/Vomiting Pantoprazole Sodium (Protonix Ec Tab) 40 mg PO 0630 [facility] Last Admin: 07/03/17 06:03 Dose: 40 mg - Labs Labs: 07/03/17 11:15 07/03/17 11:15 - Respiratory Exam Respiratory Exam: Clear to Ausculation Bilateral - Cardiovascular Exam Cardiovascular Exam: Irregular Rhythm, +S1, +S2 - Extremities Exam Extremities Exam: Normal Inspection - Additional Findings Additional findings: BUTTON PUNCHER NOTES REVIEWED AND DR CISNEROS SPOKEN TO-PATIENT HAD BM AND HAD ANOTHER SYNCOPAL EPISODE AND FOUND TO HAVE ORTHOSTATIC HYPOTENSION BUT WAS STABLE AT THE END OF BUTTON PUNCHER AND KEPT ON 6N AND THE EKG WAS UNCHANGED AND THE TROPONIN WAS NORMAL BUN/CR 46/2.0 Assessment and Plan - Assessment and Plan (Free Text) Assessment: RECENT CVA ATRIAL FLUTTER HYPERTENSION WITH ORTHOSTATIC HYPOTENSION HYPERLIPIDEMIA INCREASED BUN/CR Plan: THE PATIENT WAS STARTED ON 0.9 NS AT 70 CC/HR FLOMAX WAS STOPPED FOR NOW PATIENT KEPT ON 6S HE WAS STABLE AFTER THE BUTTON PUNCHER FOR EEG BMP IN AM
[2017-07-04] MEDS: Pantoprazole 40 mg EC Tab PO SCH (05:47)
[2017-07-04 06:53] LABS: ALB/GLOB RATIO 0.8 (1.0-2.1); BILIRUBIN,TOTAL 0.4 mg/dl (0.2-1.3); POTASSIUM 4.7 MMOL/L (3.6-5.0); TOTAL PROTEIN 8.4 G/DL (6.3-8.2)
--- NOTE | 2017-07-04 08:43 | CARD ---
APPROVED REPORT EKG Measurement Heart [id number] OR P-85 [id number] <Conclusion> Atrial flutter with variable AV block with premature ventricular or aberrantly conducted complexes Abnormal ECG
--- NOTE | 2017-07-04 09:36 | PN ---
The patient is seen today, 07/03/2017. He still feels dizzy as he stands up and the patient has significant orthostatic changes with blood pressure drop more than 20 mm in systolic from 135/80 to 115/60. PHYSICAL EXAMINATION: GENERAL: Temperature of 98.4, respiratory rate 19 and pulse is 90. HEENT: Pupils equal, reactive to light. Normal-appearing mucosa of the conjunctivae, oropharynx and nasal membrane mucosa. NECK: Supple. No JVD. No carotid bruit. No lymph node. No thyromegaly. CHEST AND LUNGS: Bilateral symmetrical expansion. Good air exchange. No rales. No rhonchi. CARDIOVASCULAR SYSTEM: PMI not localized. S1 and S2. No additional sounds. ABDOMEN: Normoactive bowel sounds. No tenderness. No organomegaly. No masses. EXTREMITIES: No cyanosis. No clubbing. No edema. CENTRAL NERVOUS SYSTEM: Alert, awake, and oriented x2 and the patient has left-sided weakness. ASSESSMENT: 1. Cerebrovascular accident with left-sided weakness. 2. Chronic kidney disease. 3. Hyperkalemia. 4. Orthostatic changes secondary to autonomic insufficiency. PLAN: We will start the patient on ProAmatine 5 mg 3 times a day and continue physical therapy. Speedy Martinez MD
--- NOTE | 2017-07-04 10:08 | CP.PCM.PN ---
Subjective - Date & Time of Evaluation Date of Evaluation: 07/04/17 Time of Evaluation: 09:00 - Subjective Subjective: NO CHEST PAIN OR SOB NO FURTHER SYNCOPE OR NEAR SYNCOPE Objective - Vital Signs/Intake and Output Vital Signs (last 24 hours): Temp Pulse Resp BP Pulse Ox 97.5 F L 80 19 131/78 98 07/04/17 09:21 07/04/17 09:21 07/04/17 09:21 07/04/17 09:21 07/04/17 09:21 - Medications Medications: Current Medications Acetaminophen (Tylenol 325mg Tab) 650 mg PO Q6 PRN PRN Reason: pain scale 4-10 or headache. Apixaban (Eliquis) 2.5 mg PO Q12 [facility] PRN Reason: Protocol Last Admin: 07/04/17 08:57 Dose: 2.5 mg Aspirin (Aspirin Chewable) 81 mg PO DAILY [facility] Last Admin: 07/04/17 08:58 Dose: 81 mg Atorvastatin Calcium (Lipitor) 40 mg PO HS [facility] Last Admin: 07/03/17 21:27 Dose: 40 mg Ciprofloxacin (Cipro) 250 mg PO Q12 [facility] Stop: 07/05/17 09:01 Last Admin: 07/04/17 08:57 Dose: 250 mg Finasteride (Proscar) 5 mg PO DAILY [facility] Last Admin: 07/04/17 08:58 Dose: 5 mg Lactic Acid (Lac-Hydrin 12% Lotion (225 G)) 1 applic TOP Q8 [facility] Last Admin: 07/04/17 05:54 Dose: 1 applic Lactulose (Enulose) 20 gm PO BID [facility] Last Admin: 07/04/17 08:57 Dose: Not Given Metoprolol Tartrate (Lopressor) 12.5 mg PO Q12 [facility] Last Admin: 07/04/17 08:57 Dose: 12.5 mg Midodrine (Proamatine) 5 mg PO TID [facility] Last Admin: 07/04/17 08:58 Dose: 5 mg Ondansetron HCl (Zofran Tab) 4 mg PO Q6 PRN PRN Reason: Nausea/Vomiting Pantoprazole Sodium (Protonix Ec Tab) 40 mg PO 0630 [facility] Last Admin: 07/04/17 05:47 Dose: 40 mg Sodium Bicarbonate (Sodium Bicarbonate Tab) 650 mg PO Q8 [facility] Last Admin: 09/14/17 05:47 Dose: 650 mg - Labs Labs: 07/03/17 11:15 07/04/17 06:33 - Respiratory Exam Respiratory Exam: Clear to Ausculation Bilateral - Cardiovascular Exam Cardiovascular Exam: Irregular Rhythm, +S1, +S2 - Extremities Exam Extremities Exam: Normal Inspection Assessment and Plan - Assessment and Plan (Free Text) Assessment: RECENT CVA ATRIAL FLUTTER HYPERTENSION SYNCOPE-VASOVAGAL VERSUS ORTHOSTATIC Plan: CONTINUE METOPROLOL, ASPIRIN, ELIQUIS, ATORVASTATIN EEG DONE-REPORT PENDING
[2017-07-05] MEDS: Pantoprazole 40 mg EC Tab PO SCH (06:57)
--- NOTE | 2017-07-05 09:28 | CP.PCM.PN ---
Subjective - Date & Time of Evaluation Date of Evaluation: 07/05/17 Time of Evaluation: 08:30 - Subjective Subjective: NO COMPLAINTS FEELS GOOD Objective - Vital Signs/Intake and Output Vital Signs (last 24 hours): Temp Pulse Resp BP Pulse Ox 96.8 F L 92 H 20 145/80 100 07/04/17 20:16 07/05/17 08:34 07/04/17 20:16 07/05/17 08:34 07/04/17 20:16 - Medications Medications: Current Medications Acetaminophen (Tylenol 325mg Tab) 650 mg PO Q6 PRN PRN Reason: pain scale 4-10 or headache. Apixaban (Eliquis) 2.5 mg PO Q12 [facility] PRN Reason: Protocol Last Admin: 07/05/17 08:34 Dose: 2.5 mg Aspirin (Aspirin Chewable) 81 mg PO DAILY [facility] Last Admin: 07/05/17 08:33 Dose: 81 mg Atorvastatin Calcium (Lipitor) 40 mg PO HS [facility] Last Admin: 07/04/17 21:02 Dose: 40 mg Finasteride (Proscar) 5 mg PO DAILY [facility] Last Admin: 07/05/17 08:35 Dose: 5 mg Lactic Acid (Lac-Hydrin 12% Lotion (225 G)) 1 applic TOP Q8 [facility] Last Admin: 07/05/17 06:58 Dose: 1 applic Lactulose (Enulose) 20 gm PO BID [facility] Last Admin: 07/05/17 08:33 Dose: Not Given Metoprolol Tartrate (Lopressor) 12.5 mg PO Q12 [facility] Last Admin: 07/05/17 08:34 Dose: 12.5 mg Midodrine (Proamatine) 5 mg PO TID [facility] Last Admin: 07/05/17 08:34 Dose: 5 mg Ondansetron HCl (Zofran Tab) 4 mg PO Q6 PRN PRN Reason: Nausea/Vomiting Pantoprazole Sodium (Protonix Ec Tab) 40 mg PO 0630 [facility] Last Admin: 07/05/17 06:57 Dose: 40 mg Sodium Bicarbonate (Sodium Bicarbonate Tab) 650 mg PO Q8 [facility] Last Admin: 07/05/17 06:56 Dose: 650 mg - Labs Labs: 07/03/17 11:15 07/04/17 06:33 - Respiratory Exam Respiratory Exam: Clear to Ausculation Bilateral - Cardiovascular Exam Cardiovascular Exam: Irregular Rhythm, +S1, +S2 - Extremities Exam Extremities Exam: Normal Inspection Assessment and Plan - Assessment and Plan (Free Text) Assessment: RECENT CVA ATRIAL FLUTTER SYNCOPE-PROBABLY VASOVAGAL HYPERTENSION Plan: CONTINUE ASPIRIN, ELIQUIS, METOPROLOL, ATORVASTATIN CONTINUE PHYSICAL THERAPY
--- NOTE | 2017-07-05 13:55 | CP.PCM.PN ---
Subjective - Date & Time of Evaluation Date of Evaluation: 07/05/17 Time of Evaluation: 09:30 - Subjective Subjective: no acute complaints at present Objective - Vital Signs/Intake and Output Vital Signs (last 24 hours): Temp Pulse Resp BP Pulse Ox 96.9 F L 92 H 20 145/80 100 07/05/17 09:45 07/05/17 09:45 07/05/17 09:45 07/05/17 09:45 07/05/17 09:45 - Medications Medications: Current Medications Acetaminophen (Tylenol 325mg Tab) 650 mg PO Q6 PRN PRN Reason: pain scale 4-10 or headache. Apixaban (Eliquis) 2.5 mg PO Q12 [facility] PRN Reason: Protocol Last Admin: 07/05/17 08:34 Dose: 2.5 mg Aspirin (Aspirin Chewable) 81 mg PO DAILY [facility] Last Admin: 07/05/17 08:33 Dose: 81 mg Atorvastatin Calcium (Lipitor) 40 mg PO HS [facility] Last Admin: 07/04/17 21:02 Dose: 40 mg Finasteride (Proscar) 5 mg PO DAILY [facility] Last Admin: 07/05/17 08:35 Dose: 5 mg Lactic Acid (Lac-Hydrin 12% Lotion (225 G)) 1 applic TOP Q8 [facility] Last Admin: 07/05/17 13:38 Dose: 1 applic Lactulose (Enulose) 20 gm PO BID [facility] Last Admin: 07/05/17 08:33 Dose: Not Given Metoprolol Tartrate (Lopressor) 12.5 mg PO Q12 [facility] Last Admin: 07/05/17 08:34 Dose: 12.5 mg Midodrine (Proamatine) 5 mg PO BID [facility] Ondansetron HCl (Zofran Tab) 4 mg PO Q6 PRN PRN Reason: Nausea/Vomiting Pantoprazole Sodium (Protonix Ec Tab) 40 mg PO 0630 [facility] Last Admin: 07/05/17 06:57 Dose: 40 mg Sodium Bicarbonate (Sodium Bicarbonate Tab) 650 mg PO Q8 [facility] Last Admin: 07/05/17 13:38 Dose: 650 mg - Labs Labs: 07/03/17 11:15 07/04/17 06:33 - Head Exam Head Exam: ATRAUMATIC, NORMAL INSPECTION, NORMOCEPHALIC - Eye Exam Eye Exam: EOMI, Normal appearance, PERRL Pupil Exam: NORMAL ACCOMODATION - ENT Exam ENT Exam: Mucous Membranes Moist, Normal Exam - Neck Exam Neck Exam: Normal Inspection - Respiratory Exam Respiratory Exam: NORMAL BREATHING PATTERN - Cardiovascular Exam Cardiovascular Exam: REGULAR RHYTHM - GI/Abdominal Exam GI & Abdominal Exam: Normal Bowel Sounds - Rectal Exam Rectal Exam: NORMAL INSPECTION - Exam External exam: NORMAL EXTERNAL EXAM - Extremities Exam Extremities Exam: Full ROM, Normal Capillary Refill - Back Exam Back Exam: NORMAL INSPECTION - Neurological Exam Neurological Exam: Alert, Awake Neuro motor strength exam: Left Upper Extremity: 3, Right Upper Extremity: 3, Left Lower Extremity: 3, Right Lower Extremity: 3 - Psychiatric Exam Psychiatric exam: Normal Affect, Normal Mood - Skin Skin Exam: Dry, Intact Assessment and Plan (1) Syncope Status: Acute (2) CVA (cerebral vascular accident) Assessment & Plan: plan for physical, occupational and rec therapy Status: Acute
--- NOTE | 2017-07-05 15:44 | PN ---
NEUROLOGY PROGRESS NOTE SUBJECTIVE: The patient is sitting on the chair, in no acute distress. Denies having any headache or dizziness. The patient apparently had another episode during which he passed out. The patient apparently was going to undergo physical therapy when he suddenly lost tone in his body, and he passed out. His eyes were rolled up and towards the right side. No abnormal involuntary movements were noted. The patient did have urinary incontinence. PHYSICAL EXAMINATION: VITAL SIGNS: At the moment, his blood pressure is 145/80, heart rate is 92 per minute, breathing at a rate of 16 per minute, temperature is 96.9 degrees Fahrenheit. HEENT: Normocephalic and atraumatic. NECK: Supple. There are no carotid bruits. LUNGS: Clear. CARDIOVASCULAR: S1 and S2 audible. No murmurs. ABDOMEN: Soft, nontender. Bowel sounds present. NEUROLOGIC: Mental status: The patient is awake, alert, oriented to place, year. He follows all simple commands. Cranial nerve examination: Pupils are 3 mm bilaterally, reactive to light. Visual naranjo are full. Extraocular movements are intact. There is slight decrease in nasolabial fold on the left side. Tongue is midline. Motor examination: Tone is normal. Power is 4/5 on the left side and 5/5 on the right side. Gait is slow. He walks with the help of a walker. [id number] shows no dysmetria. IMPRESSION: 1. Cerebrovascular accident. 2. Status post recurrent syncope. RECOMMENDATIONS: 1. The patient had 2 electroencephalograms in the last one month and both were normal. 2. The patient to have prolonged ambulatory electroencephalogram done. 3. The patient will be continued on his Eliquis for his underlying atrial fibrillation. 4. The patient also will be continued on statin. 5. The patient will have physical therapy. 6. Please continue supportive care and other treatment. Thank you for the opportunity to participate in the care of this patient. Neri Larios MD
--- NOTE | 2017-07-06 03:16 | PN ---
SUBJECTIVE: Blood pressure is better controlled and the patient has no other orthostatic changes since he was started on ProAmatine. PHYSICAL EXAMINATION VITAL SIGNS: Blood pressure 150/86 and supine and standing 148/84, temperature 97.2, respiratory rate 20, and pulse 89. HEENT: Pupils equal and reactive to light. Normal appearing mucosa of the conjunctivae, oropharynx, and nasal membrane mucosa. NECK: Supple. No JVD. No carotid bruits. No lymph node. No thyromegaly. CHEST AND LUNGS: Bilateral symmetrical expansion. Good air exchange. No rales. No rhonchi. CARDIOVASCULAR: PMI not localized. S1 and S2. No additional sounds. ABDOMEN: Normoactive bowel sounds. No tenderness. No organomegaly. No masses. EXTREMITIES: No cyanosis. No clubbing. No edema. CENTRAL NERVOUS SYSTEM: Alert, awake, and oriented x2. No neurological deficit is appreciated except for left-sided hemiparesis. ASSESSMENT: Orthostatic hypotension, status post cerebrovascular accident with left-sided hemiparesis, chronic kidney disease, benign prostate hypertrophy. PLAN: We will decrease ProAmatine to 5 mg twice a day. Continue physical therapy and occupational therapy. Speedy Martinez MD
[2017-07-06] MEDS: Pantoprazole 40 mg EC Tab PO SCH (06:25)
[2017-07-07] MEDS: Pantoprazole 40 mg EC Tab PO SCH (05:55)
--- NOTE | 2017-07-07 11:00 | CP.PCM.PN ---
Subjective - Date & Time of Evaluation Date of Evaluation: 07/07/17 Time of Evaluation: 09:45 - Subjective Subjective: NO COMPLAINTS STATES HE IS DOING WELL Objective - Vital Signs/Intake and Output Vital Signs (last 24 hours): Temp Pulse Resp BP Pulse Ox 97.3 F L 89 20 144/88 99 07/07/17 07:59 07/07/17 08:04 07/07/17 07:59 07/07/17 08:04 07/07/17 07:59 - Medications Medications: Current Medications Acetaminophen (Tylenol 325mg Tab) 650 mg PO Q6 PRN PRN Reason: pain scale 4-10 or headache. Apixaban (Eliquis) 2.5 mg PO Q12 [facility] PRN Reason: Protocol Last Admin: 07/07/17 08:05 Dose: 2.5 mg Aspirin (Aspirin Chewable) 81 mg PO DAILY [facility] Last Admin: 07/07/17 08:05 Dose: 81 mg Atorvastatin Calcium (Lipitor) 40 mg PO HS [facility] Last Admin: 07/06/17 21:19 Dose: 40 mg Finasteride (Proscar) 5 mg PO DAILY [facility] Last Admin: 07/07/17 08:05 Dose: 5 mg Lactic Acid (Lac-Hydrin 12% Lotion (225 G)) 1 applic TOP Q8 [facility] Last Admin: 07/07/17 05:56 Dose: 1 applic Lactulose (Enulose) 20 gm PO BID [facility] Last Admin: 07/07/17 08:04 Dose: Not Given Metoprolol Tartrate (Lopressor) 12.5 mg PO Q12 [facility] Last Admin: 07/07/17 08:04 Dose: 12.5 mg Midodrine (Proamatine) 5 mg PO BID [facility] Last Admin: 07/07/17 08:05 Dose: 5 mg Ondansetron HCl (Zofran Tab) 4 mg PO Q6 PRN PRN Reason: Nausea/Vomiting Pantoprazole Sodium (Protonix Ec Tab) 40 mg PO 0630 [facility] Last Admin: 07/07/17 05:55 Dose: 40 mg Sodium Bicarbonate (Sodium Bicarbonate Tab) 650 mg PO Q8 [facility] Last Admin: 07/07/17 05:55 Dose: 650 mg - Labs Labs: 07/03/17 11:15 07/04/17 06:33 - Respiratory Exam Respiratory Exam: Clear to Ausculation Bilateral - Cardiovascular Exam Cardiovascular Exam: Irregular Rhythm, +S1, +S2 - Extremities Exam Extremities Exam: Normal Inspection Assessment and Plan - Assessment and Plan (Free Text) Assessment: RECENT CVA ATRIAL FLUTTER HYPERTENSION HYPERLIPIDEMIA Plan: CONTINUE ASPIRIN, ELIQUIS, METOPROLOL AND ATORVASTATIN CONTINUE PHYSICAL THERAPY
[2017-07-08] MEDS: Pantoprazole 40 mg EC Tab PO SCH (06:18)
--- NOTE | 2017-07-08 08:32 | PN ---
SUBJECTIVE: The patient is seen today 07/06/2017. He was refusing taking his medications today and there are no more orthostatic changes. PHYSICAL EXAMINATION: VITAL SIGNS: Blood pressure 134/86 supine and 134/74 standing, pulse is 90, temperature 97.5, and respiratory rate is 20. HEENT: Pupils equal and reactive to light. Normal appearing mucosa of the conjunctiva, oropharyngeal, and nasal membrane mucosa. NECK: Supple. No JVD. No carotid bruits. No lymph node. No thyromegaly. CHEST AND LUNGS: Bilateral symmetrical expansion. Good air exchange. No rales. No rhonchi. CARDIOVASCULAR SYSTEM: PMI not localized. S1 and S2. No additional sounds. ABDOMEN: Normoactive bowel sounds. No tenderness. No organomegaly. No masses. EXTREMITIES: No cyanosis. No clubbing. No edema. CENTRAL NERVOUS SYSTEM: Alert, awake, oriented x2 and there is left-sided hemiparesis. ASSESSMENT: Paroxysmal atrial fibrillation, cerebrovascular accident with left-sided weakness, benign prostate hypertrophy, chronic kidney disease, autonomic insufficiency with orthostatic hypotension. PLAN: Continue ProAmatine and current medication. Discussed with the patient regarding medications and he agreed to take his medicine and continue physical therapy and occupational therapy. Speedy Martinez MD
--- NOTE | 2017-07-08 11:12 | CP.PCM.PN ---
Subjective - Date & Time of Evaluation Date of Evaluation: 07/08/17 Time of Evaluation: 09:00 - Subjective Subjective: NO COMPLAINTS STATES HE IS DOING WELL IN REHAB Objective - Vital Signs/Intake and Output Vital Signs (last 24 hours): Temp Pulse Resp BP Pulse Ox 97.2 F L 91 H 18 122/68 99 07/08/17 08:26 07/08/17 10:55 07/08/17 08:26 07/08/17 10:55 07/08/17 08:26 - Medications Medications: Current Medications Acetaminophen (Tylenol 325mg Tab) 650 mg PO Q6 PRN PRN Reason: pain scale 4-10 or headache. Apixaban (Eliquis) 2.5 mg PO Q12 [facility] PRN Reason: Protocol Last Admin: 07/08/17 08:11 Dose: 2.5 mg Aspirin (Aspirin Chewable) 81 mg PO DAILY [facility] Last Admin: 07/08/17 08:10 Dose: 81 mg Atorvastatin Calcium (Lipitor) 40 mg PO HS [facility] Last Admin: 07/07/17 21:24 Dose: 40 mg Finasteride (Proscar) 5 mg PO DAILY [facility] Last Admin: 07/08/17 08:12 Dose: 5 mg Lactic Acid (Lac-Hydrin 12% Lotion (225 G)) 1 applic TOP Q8 [facility] Last Admin: 07/08/17 06:18 Dose: 1 applic Lactulose (Enulose) 20 gm PO BID [facility] Last Admin: 07/08/17 08:13 Dose: Not Given Metoprolol Tartrate (Lopressor) 12.5 mg PO Q12 [facility] Last Admin: 07/08/17 08:10 Dose: 12.5 mg Midodrine (Proamatine) 5 mg PO BID [facility] Last Admin: 07/08/17 08:11 Dose: 5 mg Ondansetron HCl (Zofran Tab) 4 mg PO Q6 PRN PRN Reason: Nausea/Vomiting Pantoprazole Sodium (Protonix Ec Tab) 40 mg PO 0630 [facility] Last Admin: 07/08/17 06:18 Dose: 40 mg Sodium Bicarbonate (Sodium Bicarbonate Tab) 650 mg PO Q8 [facility] Last Admin: 07/08/17 06:18 Dose: 650 mg - Labs Labs: 07/03/17 11:15 07/04/17 06:33 - Respiratory Exam Respiratory Exam: Clear to Ausculation Bilateral - Cardiovascular Exam Cardiovascular Exam: Irregular Rhythm, +S1, +S2 - Extremities Exam Extremities Exam: Normal Inspection Assessment and Plan - Assessment and Plan (Free Text) Assessment: RECENT CVA ATRIAL FLUTTER HYPERTENSION HYPERLIPIDEMIA VASOVAGAL SYNCOPE Plan: CONTINUE ASPIRIN, ELIQUIS, METOPROLOL AND ATORVASTATIN CONTINUE REHAB
--- NOTE | 2017-07-09 01:35 | PN ---
SUBJECTIVE: The patient is seen today, 07/08/2017. He is not in any cardiopulmonary distress. The patient is cooperative to physical therapy. PHYSICAL EXAMINATION VITAL SIGNS: Blood pressure 130/78, temperature 97.2, respiratory rate 18, and pulse 90. HEENT: Pupils equal and reactive to light. Normal-appearing mucosa of the conjunctivae, oropharyngeal, and nasal membrane mucosa. NECK: Supple. No JVD. No carotid bruit. No lymph node. No thyromegaly. CHEST AND LUNGS: Bilateral symmetrical expansion. Good air exchange. No rales, no rhonchi. CARDIOVASCULAR: PMI not localized. S1, S2. No additional sounds. ABDOMEN: Normoactive bowel sounds. No tenderness. No organomegaly. No masses. EXTREMITIES: No cyanosis. No clubbing. No edema. MARK[employer] SUPERINTENDENT: Alert, awake, and oriented x2. The patient has left-sided hemiparesis. ASSESSMENT: 1. Cerebrovascular accident with left-sided weakness. 2. Atrial fibrillation. 3. Hypertension. 4. Orthostatic hypotension. 5. Obstructive uropathy with chronic kidney disease. 6. Benign prostatic hypertrophy. PLAN: Continue current management and physical therapy, and we will decrease ProAmatine as possible. Speedy Martinez MD
[2017-07-09] MEDS: Pantoprazole 40 mg EC Tab PO SCH (06:29)
--- NOTE | 2017-07-09 10:57 | CP.PCM.PN ---
Subjective - Date & Time of Evaluation Date of Evaluation: 07/09/17 Time of Evaluation: 08:45 - Subjective Subjective: NO COMPLAINTS NO FURTHER WEAKNESS OR LOC Objective - Vital Signs/Intake and Output Vital Signs (last 24 hours): Temp Pulse Resp BP Pulse Ox 97.9 F 90 18 138/74 97 07/09/17 08:59 07/09/17 08:59 07/09/17 08:59 07/09/17 08:59 07/09/17 08:26 - Medications Medications: Current Medications Acetaminophen (Tylenol 325mg Tab) 650 mg PO Q6 PRN PRN Reason: pain scale 4-10 or headache. Apixaban (Eliquis) 2.5 mg PO Q12 [facility] PRN Reason: Protocol Last Admin: 07/09/17 08:23 Dose: 2.5 mg Aspirin (Aspirin Chewable) 81 mg PO DAILY [facility] Last Admin: 07/09/17 08:24 Dose: 81 mg Atorvastatin Calcium (Lipitor) 40 mg PO HS [facility] Last Admin: 07/08/17 21:55 Dose: 40 mg Finasteride (Proscar) 5 mg PO DAILY [facility] Last Admin: 07/09/17 08:24 Dose: 5 mg Lactic Acid (Lac-Hydrin 12% Lotion (225 G)) 1 applic TOP Q8 [facility] Last Admin: 07/09/17 06:00 Dose: Not Given Lactulose (Enulose) 20 gm PO BID [facility] Last Admin: 07/09/17 08:25 Dose: Not Given Metoprolol Tartrate (Lopressor) 12.5 mg PO Q12 [facility] Last Admin: 07/09/17 08:23 Dose: 12.5 mg Midodrine (Proamatine) 5 mg PO BID [facility] Last Admin: 07/09/17 08:24 Dose: 5 mg Ondansetron HCl (Zofran Tab) 4 mg PO Q6 PRN PRN Reason: Nausea/Vomiting Pantoprazole Sodium (Protonix Ec Tab) 40 mg PO 0630 [facility] Last Admin: 07/09/17 06:29 Dose: 40 mg Sodium Bicarbonate (Sodium Bicarbonate Tab) 650 mg PO Q8 [facility] Last Admin: 07/09/17 06:00 Dose: Not Given - Labs Labs: 07/03/17 11:15 07/04/17 06:33 - Respiratory Exam Respiratory Exam: Clear to Ausculation Bilateral - Cardiovascular Exam Cardiovascular Exam: Irregular Rhythm, +S1, +S2 - Extremities Exam Extremities Exam: Normal Inspection Assessment and Plan - Assessment and Plan (Free Text) Assessment: RECENT CVA ATRIAL FLUTTER HYPERTENSION HYPERLIPIDEMIA RECENT SYNOPES-PROBABLY VASOVAGAL AND ORTHOSTATIC HYPOTENSION Plan: CONTINUE ASPIRIN, ELIQUIS, ATORVASTATIN AND METOPROLOL
--- NOTE | 2017-07-09 20:38 | CP.PCM.PN ---
Subjective - Date & Time of Evaluation Date of Evaluation: 07/09/17 Time of Evaluation: 11:00 - Subjective Subjective: no acute complaints at present, just weakness Objective - Vital Signs/Intake and Output Vital Signs (last 24 hours): Temp Pulse Resp BP Pulse Ox 97.8 F 75 27 H 111/61 98 07/09/17 15:52 07/09/17 15:52 07/09/17 15:52 07/09/17 15:52 07/09/17 15:52 - Medications Medications: Current Medications Acetaminophen (Tylenol 325mg Tab) 650 mg PO Q6 PRN PRN Reason: pain scale 4-10 or headache. Apixaban (Eliquis) 2.5 mg PO Q12 [facility] PRN Reason: Protocol Last Admin: 07/09/17 08:23 Dose: 2.5 mg Aspirin (Aspirin Chewable) 81 mg PO DAILY [facility] Last Admin: 07/09/17 08:24 Dose: 81 mg Atorvastatin Calcium (Lipitor) 40 mg PO HS [facility] Last Admin: 07/08/17 21:55 Dose: 40 mg Finasteride (Proscar) 5 mg PO DAILY [facility] Last Admin: 07/09/17 08:24 Dose: 5 mg Lactic Acid (Lac-Hydrin 12% Lotion (225 G)) 1 applic TOP Q8 [facility] Last Admin: 07/09/17 13:22 Dose: 1 applic Lactulose (Enulose) 20 gm PO BID [facility] Last Admin: 07/09/17 17:17 Dose: Not Given Metoprolol Tartrate (Lopressor) 12.5 mg PO Q12 [facility] Last Admin: 07/09/17 08:23 Dose: 12.5 mg Midodrine (Proamatine) 5 mg PO BID [facility] Last Admin: 07/09/17 17:18 Dose: 5 mg Ondansetron HCl (Zofran Tab) 4 mg PO Q6 PRN PRN Reason: Nausea/Vomiting Pantoprazole Sodium (Protonix Ec Tab) 40 mg PO 0630 [facility] Last Admin: 07/09/17 06:29 Dose: 40 mg Sodium Bicarbonate (Sodium Bicarbonate Tab) 650 mg PO Q8 [facility] Last Admin: 07/09/17 13:21 Dose: 650 mg - Labs Labs: 07/03/17 11:15 07/04/17 06:33 - Head Exam Head Exam: ATRAUMATIC, NORMAL INSPECTION, NORMOCEPHALIC - Eye Exam Eye Exam: EOMI, Normal appearance Pupil Exam: NORMAL ACCOMODATION, PERRL - ENT Exam ENT Exam: Mucous Membranes Moist, Normal Exam - Neck Exam Neck Exam: Normal Inspection - Respiratory Exam Respiratory Exam: NORMAL BREATHING PATTERN - GI/Abdominal Exam GI & Abdominal Exam: Normal Bowel Sounds - Rectal Exam Rectal Exam: NORMAL INSPECTION - Exam External exam: NORMAL EXTERNAL EXAM - Extremities Exam Extremities Exam: Normal Capillary Refill, Normal Inspection - Back Exam Back Exam: NORMAL INSPECTION - Neurological Exam Neurological Exam: Alert, Awake Neuro motor strength exam: Left Upper Extremity: 3, Right Upper Extremity: 3, Left Lower Extremity: 3, Right Lower Extremity: 3 - Psychiatric Exam Psychiatric exam: Normal Affect, Normal Mood - Skin Skin Exam: Dry, Normal Color Assessment and Plan (1) Syncope Status: Acute (2) CVA (cerebral vascular accident) Assessment & Plan: plan for physical, occupational, rec therapy fro team conference Status: Acute
[2017-07-10] MEDS: Pantoprazole 40 mg EC Tab PO SCH (05:41)
--- NOTE | 2017-07-10 12:02 | PCM.EEG ---
Electroencephalogram Report - Electroencephalogram Report Procedure Date: 07/03/17 (Performed after [employer]) Interpretation: Medications were reviewed. Technical: This is a digitally recorded electroencephalogram. The international 10-20 electrode placement system is used for scalp electrode placement. Sixteen channels of scalp EEG are recorded. Another channel was used for for ECG. The data are stored digitally and reviewed in reformatted montages for optimal display. Background: 9 to 10 hertz alpha activity was seen. Maximal over the posterior head region. This was poorly maintained. These activities are symmetric on both sides. They attenuated with eye opening. Small amount of beta activities are seen. Description: No focal slowing was seen. No seizure like activity was observed during this recording. Patient entered into periods of drowsiness and light sleep. No abnormality was seen. Impression: Normal EEG. No focal slowing no seizure like activity was observed. Correlation with clinical findings is needed.
--- NOTE | 2017-07-10 12:08 | PSY.TMCNF ---
Nursing - Vital Signs Vital Signs (Last 8 hours): Vital Signs 07/10/17 07/10/17 08:20 09:37 Temperature 98.5 F Pulse Rate 94 H 92 H Respiratory 22 Rate Blood Pressure 156/85 H O2 Sat by Pulse 96 99 Oximetry Pain: 0 - Precautions: Precautions: Fall Prevention, Cardiac/Pulmonary - Medications/Other Issues Comment: No BM since 07/06, pt refusing to take Lactuse BID. - Consults Comment: Dr. Gomez. Dr. Palacio. Podiatry. Dr. Heath-Gaelilisco - Toileting Toileting: Dependent - Bladder Management Bladder Pattern: Normal, Incontinent Voiding Method: Toilet, Urinal, Diaper - Bowel Management Bowel Pattern: Normal, Constipated Comment: Constipated at times Lactulose ordered Bowel Management: Maximal Assistance - Transfers Transfers: Moderate Assistance - ADL's ADL's: Maximal Assistance - Pain Management Comments: No Pain Management. Assess prn - Patient/Family Teaching Comments: CARE POST CVA AND SAFETY PRECAUTIONS - Goals/Time Frame Comments: Pt was seen today during visit and agreeable to go to recreation room. Pt was able to identify his leisure interests such as reading the paper particularly the sports section, watching sports, walking around, shopping, laundry, and taking care of home with son. Pt participated in modified jennifer card task and required min verbal cues for direction carryover and for visual scanning. Pt utilized both hands throughout task to hold and pick up attendant cards. Pt' s mood was stable-positive and tolerated duration of session. Pt returned to room and placed call atwood within reach. - Provider Provider: GALLITO JONESN RN CRRN Physical Therapy - Bed Mobility Bed Mobility: Verbal Cues, Contact Guard, Minimal Assistance - Transfers Sit to Stand: Verbal Cues, Contact Guard, Minimal Assistance - Ambulation Level of Assistance: Verbal Cues, Contact Guard Distance (ft.): 140 Assistive Devices: Rolling Walker - Stair Negotiation Stairs: Level of Assistance: Verbal Cues Number of Stairs: 3 Stairs: Assistive Devices: Left Handrail, Right Handrail - Standing Balance Static Stand: Minimal Assistance Dynamic Stand: Minimal Assistance, Moderate Assistance - Pain Pain (assessed during therapy session): 0 - Insight/Carryover Insight/Carryover: Fair - Patient/Family Education Comment: Stroke recovery, safety/fall prevention, AE/DME, compensatory strategies for ADLs and transfers - Assessment/Plan Assessment: Pt would benefit from continued OT services to address coordination , motor control/apraxia, strength, increasing independence with sit><stand, functional mobility and ADLs in order to decrease caregiver burden and return to home environment. Pt is still at times emotional with therapist and wants to return home however poor insight of deficits and impact on function on being able to return home alone. - Goals Timeframe: 1 week Goals: MIN A toileting. S toilet txfer. MIN A bathing. MIN A tub txfer. UE dressing S. LE dressing - Provider Therapist: Ashley Lazo PT, DPT License Number: [id number] Occupational Therapy - Arousal/Attention/Orientation Level of Consciousness: Awake, Alert Patient Orientation: Person, Place - ADL/IADL Self Feeding: Independent Grooming: Supervision, Verbal Cues, Set-up Help Bathing-Upper Extremity: Supervision, Verbal Cues, Set-up Help Bathing-Lower Extremity: Moderate Assistance Dressing-Upper Extremity: Supervision, Verbal Cues, Set-up Help Dressing-Lower Extremity: Maximum Assistance - Sitting Balance Static Sitting: Supervision Dynamic Sitting: Requires supervision - Transfers Wheelchair to Bed Transfers: Verbal Cues, Set-up Help, Contact Guard Toilet Transfers: Supervision, Verbal Cues, Set-up Help, Contact Guard - Wheelchair Management Level of Assistance: Supervision, Verbal Cues, Set-up Help Distance (ft.): 50 - Upper Extremity Status Right Upper Extremity Comment: ROM and MMT WFL Left Upper Extremity Comment: ROM WFL, impaired dexterity/fine motor coordination, - Pain Pain (assessed during therapy session): 0 - Insight/Carryover Insight/Carryover: Fair - Patient/Family Education Comment: Stroke recovery, safety/fall prevention, AE/DME, compensatory strategies for ADLs and transfers - Assessment/Plan Assessment: Pt would benefit from continued OT services to address coordination , motor control/apraxia, strength, increasing independence with sit><stand, functional mobility and ADLs in order to decrease caregiver burden and return to home environment. Pt is still at times emotional with therapist and wants to return home however poor insight of deficits and impact on function on being able to return home alone. - Goals Timeframe: 1 week Goals: MIN A toileting. S toilet txfer. MIN A bathing. MIN A tub txfer. UE dressing S. LE dressing - Provider Therapist: Jess Yeung License Number: [id number] Speech Therapy - Consult Information Patient on Program: Yes Medical Diagnosis: CVA Treatment Diagnosis: cognitive deficits - Assessment Problem Solving Impairment: Mild Memory Impairment: Mild - Plan Assessment: Pt would benefit from continued OT services to address coordination , motor control/apraxia, strength, increasing independence with sit><stand, functional mobility and ADLs in order to decrease caregiver burden and return to home environment. Pt is still at times emotional with therapist and wants to return home however poor insight of deficits and impact on function on being able to return home alone. - Provider Therapist: Nereida Melendez License Number: [id number] Recreational Therapy - Participation Participation: Participates in Individual and/or Group Sessions - Attendance Attendance: 3-5 times per week - Activities Leisure Activities: Television - Socialization Level of Socialization: Initiates/interacts freely with care givers and peer - Diversional Time Diversional Time: sports, television, reading newspaper - Assessment Assessment/Plan: Pt would benefit from continued OT services to address coordination, motor control/apraxia, strength, increasing independence with sit> <stand, functional mobility and ADLs in order to decrease caregiver burden and return to home environment. Pt is still at times emotional with therapist and wants to return home however poor insight of deficits and impact on function on being able to return home alone. - Provider Therapist: Sharron Concepcion, CAD PROGRAMMER #[id number] Nutrition - Current Diet Current Diet/ Supplement/ Feedings: Moderate consistent CHO 2 gram Na 2 gram K+ Heart Healthy diet - Appetite Percent Meal Consumed: 75-100% - Comments Comments: CARE POST CVA AND SAFETY PRECAUTIONS - Assessment/Goals/Time Frame Assessment/Goals/Time Frame: No BM since 07/06, pt refusing to take Lactuse BID. - Provider Provider: Lizett Joshi RD Case Management - Psychosocial Assessment Support Systems: Lives with son; Patient's son Nilesh works, however, is very supportive and involved in care- [phone];. Came in for caregiver training x2 Psychological Interventions/Needs: Patient is alert, however with poor insight and judgement; Pt is often tearful when discussing subacute rehab placement as well as paying his bills at home; Provided emotional support and met with pt and son regarding pt concerns re: bills and importance of not being able to drive at this time Discharge Concerns: Pt with impaired insight and judgement; Son starts working overnights this week; Pt has limited support. Patient/Family Meeting: CM met with pt and spoke with pt's son with pt's consent as well as rehab team Intervention/Goal/Outcome:: 1. Plan: Tentative discharge scheduled for 07/12/17 to subacute rehab (first choice is [facility]) due to proximity from pt's home LAD from insurance is 07/04/17 updates requested at that time 2. Caregiver training initiated with son; Reiterated importance of working on improved judgement and insight - Discharge Plan Discharge Plan: Subacute care - Provider Provider: ORLANDO Damon, FLY WINDER License Number: [id number] Rehabilitation Plan - Treatment Plan Treatment Plan: Physical Therapy, Occupational Therapy, Speech, Dietary, Patient /Family Education - Recommendation Recommendation: Physical Therapy, Occupational Therapy, Speech, Dietary, Patient /Family Education - Discharge Plan Discharge to: Subacute Comment: [facility]
--- NOTE | 2017-07-10 13:21 | CP.PCM.PN ---
Subjective - Date & Time of Evaluation Date of Evaluation: 07/10/17 Time of Evaluation: 08:00 - Subjective Subjective: NO COMPLAINTS Objective - Vital Signs/Intake and Output Vital Signs (last 24 hours): Temp Pulse Resp BP Pulse Ox 98.5 F 92 H 22 156/85 H 99 07/10/17 08:20 07/10/17 09:37 07/10/17 08:20 07/10/17 08:20 07/10/17 09:37 - Medications Medications: Current Medications Acetaminophen (Tylenol 325mg Tab) 650 mg PO Q6 PRN PRN Reason: pain scale 4-10 or headache. Apixaban (Eliquis) 2.5 mg PO Q12 [facility] PRN Reason: Protocol Last Admin: 07/10/17 08:21 Dose: 2.5 mg Aspirin (Aspirin Chewable) 81 mg PO DAILY [facility] Last Admin: 07/10/17 08:21 Dose: 81 mg Atorvastatin Calcium (Lipitor) 40 mg PO HS [facility] Last Admin: 07/09/17 21:50 Dose: 40 mg Finasteride (Proscar) 5 mg PO DAILY [facility] Last Admin: 07/10/17 08:21 Dose: 5 mg Lactic Acid (Lac-Hydrin 12% Lotion (225 G)) 1 applic TOP Q8 [facility] Last Admin: 07/10/17 05:42 Dose: 1 applic Lactulose (Enulose) 20 gm PO BID [facility] Last Admin: 07/10/17 08:22 Dose: Not Given Metoprolol Tartrate (Lopressor) 12.5 mg PO Q12 [facility] Last Admin: 07/10/17 08:20 Dose: 12.5 mg Midodrine (Proamatine) 5 mg PO BID [facility] Last Admin: 07/10/17 08:20 Dose: 5 mg Ondansetron HCl (Zofran Tab) 4 mg PO Q6 PRN PRN Reason: Nausea/Vomiting Pantoprazole Sodium (Protonix Ec Tab) 40 mg PO 0630 [facility] Last Admin: 07/10/17 05:41 Dose: 40 mg Sodium Bicarbonate (Sodium Bicarbonate Tab) 650 mg PO Q8 [facility] Last Admin: 07/10/17 05:42 Dose: 650 mg - Labs Labs: 07/03/17 11:15 07/04/17 06:33 - Respiratory Exam Respiratory Exam: Clear to Ausculation Bilateral - Cardiovascular Exam Cardiovascular Exam: Irregular Rhythm, +S1, +S2 - Extremities Exam Extremities Exam: Normal Inspection Assessment and Plan - Assessment and Plan (Free Text) Assessment: RECENT CVA ATRIAL FLUTTER HYPERTENSION HYPERLIPIDEMIA Plan: CONTINUE ASPIRIN, ELIQUIS, ATORVASTATIN AND METOPROLOL CONTINUE PHYSICAL THERAPY
--- NOTE | 2017-07-10 18:42 | PN ---
DATE: 07/10/2017 SUBJECTIVE: The patient is seen today 07/10/2017, he is not in any cardiopulmonary distress. PHYSICAL EXAMINATION VITAL SIGNS: Blood pressure 142/87 without orthostatic changes, temperature 98.5, respiratory rate 20 and pulse 19. HEENT: Pupils equal and reactive to light. Normal-appearing mucosa of the conjunctivae, oropharyngeal, and nasal membrane mucosa. NECK: Supple. No JVD. No carotid bruit. No lymph node. No thyromegaly. CHEST AND LUNGS: Bilateral symmetrical expansion. Good air exchange. No rales, no rhonchi. CARDIOVASCULAR: PMI not localized. S1 and S2. No additional sounds. ABDOMEN: Normoactive bowel sounds. No tenderness. No organomegaly. No masses. EXTREMITIES: No cyanosis. No clubbing. No edema. INSIDE SALES ACCOUNT MANAGER: Alert, awake, and oriented x2. No neurological deficits could be appreciated. ASSESSMENT: 1. Cerebrovascular accident with left-sided hemiparesis. 2. Chronic kidney disease. 3. Obstructive uropathy. 4. Benign prostatic hypertrophy. 5. Hypertension. PLAN: Continue current medications including liquids for atrial fibrillation as well as aspirin 81 mg. We will repeat the blood work tomorrow morning. Speedy Martinez MD
--- NOTE | 2017-07-10 19:26 | CP.PCM.PN ---
Subjective - Date & Time of Evaluation Date of Evaluation: 07/10/17 Time of Evaluation: 10:30 - Subjective Subjective: no acute compalints Objective - Vital Signs/Intake and Output Vital Signs (last 24 hours): Temp Pulse Resp BP Pulse Ox 98.5 F 92 H 22 156/85 H 99 07/10/17 08:20 07/10/17 09:37 07/10/17 08:20 07/10/17 08:20 07/10/17 09:37 - Medications Medications: Current Medications Acetaminophen (Tylenol 325mg Tab) 650 mg PO Q6 PRN PRN Reason: pain scale 4-10 or headache. Apixaban (Eliquis) 2.5 mg PO Q12 [facility] PRN Reason: Protocol Last Admin: 07/10/17 08:21 Dose: 2.5 mg Aspirin (Aspirin Chewable) 81 mg PO DAILY [facility] Last Admin: 07/10/17 08:21 Dose: 81 mg Atorvastatin Calcium (Lipitor) 40 mg PO HS [facility] Last Admin: 07/09/17 21:50 Dose: 40 mg Bisacodyl (Dulcolax) 10 mg [place] HS PRN PRN Reason: Constipation Finasteride (Proscar) 5 mg PO DAILY [facility] Last Admin: 07/10/17 08:21 Dose: 5 mg Lactic Acid (Lac-Hydrin 12% Lotion (225 G)) 1 applic TOP Q8 [facility] Last Admin: 07/10/17 13:19 Dose: 1 applic Lactulose (Enulose) 20 gm PO BID [facility] Last Admin: 07/10/17 17:02 Dose: Not Given Metoprolol Tartrate (Lopressor) 12.5 mg PO Q12 [facility] Last Admin: 07/10/17 08:20 Dose: 12.5 mg Midodrine (Proamatine) 5 mg PO BID [facility] Last Admin: 07/10/17 17:01 Dose: 5 mg Ondansetron HCl (Zofran Tab) 4 mg PO Q6 PRN PRN Reason: Nausea/Vomiting Pantoprazole Sodium (Protonix Ec Tab) 40 mg PO 0630 [facility] Last Admin: 07/10/17 05:41 Dose: 40 mg Sodium Bicarbonate (Sodium Bicarbonate Tab) 650 mg PO Q8 [facility] Last Admin: 07/10/17 13:19 Dose: 650 mg - Labs Labs: 07/03/17 11:15 07/04/17 06:33 - Head Exam Head Exam: ATRAUMATIC, NORMAL INSPECTION - Eye Exam Eye Exam: EOMI Pupil Exam: NORMAL ACCOMODATION - ENT Exam ENT Exam: Normal Exam - Neck Exam Neck Exam: Normal Inspection - Respiratory Exam Respiratory Exam: NORMAL BREATHING PATTERN - Cardiovascular Exam Cardiovascular Exam: REGULAR RHYTHM - GI/Abdominal Exam GI & Abdominal Exam: Soft - Rectal Exam Rectal Exam: NORMAL INSPECTION - Exam External exam: NORMAL EXTERNAL EXAM - Extremities Exam Extremities Exam: Full ROM, Normal Inspection - Back Exam Back Exam: NORMAL INSPECTION - Neurological Exam Neurological Exam: Alert, Awake Neuro motor strength exam: Left Upper Extremity: 3, Right Upper Extremity: 3, Left Lower Extremity: 3, Right Lower Extremity: 3 - Psychiatric Exam Psychiatric exam: Normal Affect, Normal Mood Assessment and Plan (1) Syncope Status: Acute (2) CVA (cerebral vascular accident) Assessment & Plan: plan for Pt, Ot rec and speech discussed Dc planning Status: Acute
[2017-07-11] MEDS: Pantoprazole 40 mg EC Tab PO SCH (06:52)
--- NOTE | 2017-07-11 11:20 | CP.PCM.PN ---
Subjective - Date & Time of Evaluation Date of Evaluation: 07/11/17 Time of Evaluation: 10:45 - Subjective Subjective: NO CHEST PAIN OR SOB Objective - Vital Signs/Intake and Output Vital Signs (last 24 hours): Temp Pulse Resp BP Pulse Ox 97.2 F L 96 H 18 143/74 99 07/11/17 08:32 07/11/17 08:34 07/11/17 08:32 07/11/17 08:34 07/11/17 08:32 - Medications Medications: Current Medications Acetaminophen (Tylenol 325mg Tab) 650 mg PO Q6 PRN PRN Reason: pain scale 4-10 or headache. Apixaban (Eliquis) 2.5 mg PO Q12 [facility] PRN Reason: Protocol Last Admin: 07/11/17 08:35 Dose: 2.5 mg Aspirin (Aspirin Chewable) 81 mg PO DAILY [facility] Last Admin: 07/11/17 08:34 Dose: 81 mg Atorvastatin Calcium (Lipitor) 40 mg PO HS [facility] Last Admin: 07/10/17 21:26 Dose: 40 mg Bisacodyl (Dulcolax) 10 mg [place] HS PRN PRN Reason: Constipation Last Admin: 07/10/17 21:27 Dose: 10 mg Finasteride (Proscar) 5 mg PO DAILY [facility] Last Admin: 07/11/17 08:35 Dose: 5 mg Lactic Acid (Lac-Hydrin 12% Lotion (225 G)) 1 applic TOP Q8 [facility] Last Admin: 07/11/17 06:51 Dose: 1 applic Lactulose (Enulose) 20 gm PO BID [facility] Last Admin: 07/11/17 08:34 Dose: Not Given Metoprolol Tartrate (Lopressor) 12.5 mg PO Q12 [facility] Last Admin: 07/11/17 08:34 Dose: 12.5 mg Midodrine (Proamatine) 5 mg PO BID [facility] Last Admin: 07/11/17 08:34 Dose: 5 mg Ondansetron HCl (Zofran Tab) 4 mg PO Q6 PRN PRN Reason: Nausea/Vomiting Pantoprazole Sodium (Protonix Ec Tab) 40 mg PO 0630 [facility] Last Admin: 07/11/17 06:52 Dose: 40 mg Sodium Bicarbonate (Sodium Bicarbonate Tab) 650 mg PO Q8 [facility] Last Admin: 07/11/17 06:52 Dose: 650 mg - Labs Labs: 07/03/17 11:15 07/04/17 06:33 - Respiratory Exam Respiratory Exam: Clear to Ausculation Bilateral - Cardiovascular Exam Cardiovascular Exam: REGULAR RHYTHM, +S1, +S2 - Extremities Exam Extremities Exam: Normal Inspection Assessment and Plan - Assessment and Plan (Free Text) Assessment: RECENT CVA ATRIAL FLUTTER HYPERLIPIDEMIA HYPERTENSION Plan: CONTINUE ASPIRIN, ELIQUIS, ATORVASTATIN AND METOPROLOL CONTINUE PHYSICAL THERAPY AND OCCUPATIONAL THERAPY FOR POSSIBLE DISCHARGE TO SUBACUTE FACILITY TOMORROW
[2017-07-12] MEDS: Pantoprazole 40 mg EC Tab PO SCH (06:08)
--- NOTE | 2017-07-12 11:07 | CP.PCM.PN ---
Subjective - Date & Time of Evaluation Date of Evaluation: 07/12/17 Time of Evaluation: 09:45 - Subjective Subjective: NO NEW COMPLAINTS NO FURTHER SYNCOPE Objective - Vital Signs/Intake and Output Vital Signs (last 24 hours): Temp Pulse Resp BP Pulse Ox 97.3 F L 94 H 18 132/78 99 07/12/17 08:48 07/12/17 08:49 07/12/17 08:48 07/12/17 08:49 07/12/17 08:48 - Medications Medications: Current Medications Acetaminophen (Tylenol 325mg Tab) 650 mg PO Q6 PRN PRN Reason: pain scale 4-10 or headache. Apixaban (Eliquis) 2.5 mg PO Q12 [facility] PRN Reason: Protocol Last Admin: 07/12/17 08:50 Dose: 2.5 mg Aspirin (Aspirin Chewable) 81 mg PO DAILY [facility] Last Admin: 07/12/17 08:50 Dose: 81 mg Atorvastatin Calcium (Lipitor) 40 mg PO HS [facility] Last Admin: 07/11/17 21:21 Dose: 40 mg Bisacodyl (Dulcolax) 10 mg [place] HS PRN PRN Reason: Constipation Last Admin: 07/10/17 21:27 Dose: 10 mg Finasteride (Proscar) 5 mg PO DAILY [facility] Last Admin: 07/12/17 08:50 Dose: 5 mg Lactic Acid (Lac-Hydrin 12% Lotion (225 G)) 1 applic TOP Q8 [facility] Last Admin: 07/12/17 06:08 Dose: 1 applic Lactulose (Enulose) 20 gm PO BID [facility] Last Admin: 07/12/17 08:18 Dose: Not Given Metoprolol Tartrate (Lopressor) 12.5 mg PO Q12 [facility] Last Admin: 07/12/17 08:49 Dose: 12.5 mg Midodrine (Proamatine) 5 mg PO BID [facility] Last Admin: 07/12/17 08:50 Dose: 5 mg Ondansetron HCl (Zofran Tab) 4 mg PO Q6 PRN PRN Reason: Nausea/Vomiting Pantoprazole Sodium (Protonix Ec Tab) 40 mg PO 0630 [facility] Last Admin: 07/12/17 06:08 Dose: 40 mg Sodium Bicarbonate (Sodium Bicarbonate Tab) 650 mg PO Q8 [facility] Last Admin: 07/12/17 06:08 Dose: 650 mg - Labs Labs: 07/03/17 11:15 07/04/17 06:33 - Respiratory Exam Respiratory Exam: Clear to Ausculation Bilateral - Cardiovascular Exam Cardiovascular Exam: Irregular Rhythm, +S1, +S2 - Extremities Exam Extremities Exam: Normal Inspection Assessment and Plan - Assessment and Plan (Free Text) Assessment: RECENT CVA ATRIAL FLUTTER HYPERTENSION HYPERLIPIDEMIA Plan: FOR POSSIBLE DISCHARGE TODAY TO SUBACUTE REHAB CONTINUE METOPROLOL, ATORVASTATIN, ASPIRIN AND ELIQUIS
--- NOTE | 2017-07-12 15:15 | PN ---
SUBJECTIVE: The patient is a 72-year-old male, sitting in the chair, no acute complaints at present. PHYSICAL EXAMINATION: VITAL SIGNS: Stable. NECK: Supple. CHEST: Symmetrical. HEART: S1 and S2. ABDOMEN: Benign. EXTREMITIES: No clubbing, cyanosis or edema. DIAGNOSES: 1. Acute cerebrovascular accident. 2. Hypertension. 3. Diabetes. 4. Atrial fibrillation. PLAN: The patient is still needing a lot of assistance with the therapist for ADL, dressing, bathing and ambulation, have requested for subacute rehabilitation for additional goals to be met. At this point, the patient with acute cerebrovascular accident with left hemiplegia needs equipment as his mobility is limited because of the cerebrovascular accident and his inability to participate in activities of daily living, toileting, feeding, dressing, grooming, bathing are affected. The patient's mobility cannot be sufficiently be resolved by any other alternative assisted device and the patient is not able to ambulate for long distances. The beneficiary is home, provides adequate access between rooms, maneuvering this patient's services for the use of the wheel chair that is provided. The patient has sufficient upper body strength to self-propel a standard wheel chair. The use of the wheel chair will significantly improve the patient's ability to participate in the ADL and transfers if used on regular basis at home. The patient has expressed the willingness and ability to use the wheel chair that is provided in the house as the patient is unable to shift the weight without needing assistance secondary to the cerebrovascular accident. Walker Deluna MD
[2017-07-13] MEDS: Pantoprazole 40 mg EC Tab PO SCH (06:09)
--- NOTE | 2017-07-13 14:24 | PN ---
This is a late entry for a progress note done 07/12/2017. The patient was seen on 07/12/2017 in acute rehabilitation floor. PHYSICAL EXAMINATION: VITAL SIGNS: Blood pressure was 140/89, temperature 97.4, respiratory rate 20 and pulse 89. HEENT: Pupils equal and reactive to light. Normal-appearing mucosa of the conjunctivae, oropharyngeal, and nasal membrane mucosa. NECK: Supple. No JVD. No carotid bruit. No lymph node. No thyromegaly. CHEST AND LUNGS: Bilateral symmetrical expansion. Good air exchange. No rales, no rhonchi. CARDIOVASCULAR SYSTEM: PMI not localized. S1 and S2. No additional sounds. ABDOMEN: Normoactive bowel sounds. No tenderness. No organomegaly. No masses. EXTREMITIES: No cyanosis. No clubbing. No edema. CENTRAL NERVOUS SYSTEM: Alert, awake, and oriented x2. Positive left-sided weakness. ASSESSMENT: 1. Chronic kidney disease. 2. History of obstructive uropathy. 3. Benign prostate hypertrophy. 4. Status post cerebrovascular accident with left-sided weakness. 5. Atrial fibrillation with controlled ventricular rate. 6. Hypertension/orthostatic hypotension. PLAN: Continue current medications and physical therapy, occupational therapy. Discussed with social scientist regarding the discharge planning. Speedy Martinez MD
[2017-07-14] MEDS: Pantoprazole 40 mg EC Tab PO SCH (06:02)
--- NOTE | 2017-07-14 12:34 | CP.PCM.PN ---
Subjective - Date & Time of Evaluation Date of Evaluation: 07/14/17 Time of Evaluation: 11:20 - Subjective Subjective: NO COMPLAINTS DOING OK WITH REHAB Objective - Vital Signs/Intake and Output Vital Signs (last 24 hours): Temp Pulse Resp BP Pulse Ox 97.5 F L 95 H 20 138/93 H 97 07/14/17 08:38 07/14/17 08:48 07/14/17 08:38 07/14/17 08:48 07/14/17 08:38 - Medications Medications: Current Medications Acetaminophen (Tylenol 325mg Tab) 650 mg PO Q6 PRN PRN Reason: pain scale 4-10 or headache. Apixaban (Eliquis) 2.5 mg PO Q12 [facility] PRN Reason: Protocol Last Admin: 07/14/17 08:47 Dose: 2.5 mg Aspirin (Aspirin Chewable) 81 mg PO DAILY [facility] Last Admin: 07/14/17 08:49 Dose: 81 mg Atorvastatin Calcium (Lipitor) 40 mg PO HS [facility] Last Admin: 07/13/17 21:22 Dose: 40 mg Bisacodyl (Dulcolax) 10 mg [place] HS PRN PRN Reason: Constipation Last Admin: 07/10/17 21:27 Dose: 10 mg Finasteride (Proscar) 5 mg PO DAILY [facility] Last Admin: 07/14/17 08:48 Dose: 5 mg Lactic Acid (Lac-Hydrin 12% Lotion (225 G)) 1 applic TOP Q8 [facility] Last Admin: 07/14/17 06:02 Dose: 1 applic Metoprolol Tartrate (Lopressor) 12.5 mg PO Q12 [facility] Last Admin: 07/14/17 08:48 Dose: 12.5 mg Midodrine (Proamatine) 5 mg PO BID [facility] Last Admin: 07/14/17 08:48 Dose: 5 mg Ondansetron HCl (Zofran Tab) 4 mg PO Q6 PRN PRN Reason: Nausea/Vomiting Pantoprazole Sodium (Protonix Ec Tab) 40 mg PO 0630 [facility] Last Admin: 07/14/17 06:02 Dose: 40 mg Sodium Bicarbonate (Sodium Bicarbonate Tab) 650 mg PO Q8 [facility] Last Admin: 07/14/17 06:02 Dose: 650 mg - Labs Labs: 07/03/17 11:15 07/04/17 06:33 - Respiratory Exam Respiratory Exam: Clear to Ausculation Bilateral - Cardiovascular Exam Cardiovascular Exam: Irregular Rhythm, +S1, +S2 - Extremities Exam Extremities Exam: Normal Inspection Assessment and Plan - Assessment and Plan (Free Text) Assessment: RECENT CVA ATRIAL FLUTTER HYPERTENSION HYPERLIPIDEMIA Plan: CONTINUE METOPROLOL, ATORVASTATIN, ASPIRIN AND ELIQUIS THE PATIENT WILL BE KEPT IN ACUTE REHAB AND WILL PROBABLY BE DISCHARGED TO HOME ON 07/17/17
--- NOTE | 2017-07-14 22:34 | PN ---
DAILY PROGRESS NOTE DATE: 07/14/2017 SUBJECTIVE: He is in not in any cardiopulmonary distress. The patient is compliant with physical therapy and his medications. PHYSICAL EXAMINATION: VITAL SIGNS: Blood pressure 138/93, temperature 97.5, respiratory rate 20, and pulse 90. HEENT: Pupils are equal and reactive to light. Normal-appearing mucosa of the conjunctivae, oropharynx and nasal membrane mucosa. NECK: Supple. No JVD. No carotid bruits. No lymph node. No thyromegaly. CHEST AND LUNGS: Bilateral symmetrical expansion. Good air exchange. No rales. No rhonchi. CARDIOVASCULAR SYSTEM: PMI not localized. S1 and S2. No additional sounds. ABDOMEN: Normoactive bowel sounds. No tenderness. No organomegaly. No masses. EXTREMITIES: No cyanosis. No clubbing. No edema. 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 The patient has left-sided hemiparesis. ASSESSMENT: Cerebrovascular accident with left-sided weakness, atrial fibrillation with controlled ventricular rate, chronic kidney disease secondary to obstructive uropathy, and benign prostate hypertrophy. PLAN: Continue current medications and Januvia 25 mg daily was added due to elevated blood sugar and Accu-Chek was 232 . Speedy Martinez MD
[2017-07-15] MEDS: Pantoprazole 40 mg EC Tab PO SCH (05:58)
--- NOTE | 2017-07-15 16:33 | CP.PCM.PN ---
Subjective - Date & Time of Evaluation Date of Evaluation: 07/15/17 Time of Evaluation: 04:00 - Subjective Subjective: NO COMPLAINTS Objective - Vital Signs/Intake and Output Vital Signs (last 24 hours): Temp Pulse Resp BP Pulse Ox 97.9 F 95 H 20 151/90 H 99 07/15/17 07:30 07/15/17 13:10 07/15/17 07:30 07/15/17 08:22 07/15/17 07:30 - Medications Medications: Current Medications Acetaminophen (Tylenol 325mg Tab) 650 mg PO Q6 PRN PRN Reason: pain scale 4-10 or headache. Apixaban (Eliquis) 2.5 mg PO Q12 SUKI PRN Reason: Protocol Last Admin: 07/15/17 08:23 Dose: 2.5 mg Aspirin (Aspirin Chewable) 81 mg PO DAILY [facility] [place] Last Admin: 07/15/17 08:23 Dose: 81 mg Atorvastatin Calcium (Lipitor) 40 mg PO HS [facility] [place] Last Admin: 07/14/17 21:30 Dose: 40 mg Bisacodyl (Dulcolax) 10 mg [place] HS PRN PRN Reason: Constipation Last Admin: 07/10/17 21:27 Dose: 10 mg Finasteride (Proscar) 5 mg PO DAILY [facility] [place] Last Admin: 07/15/17 08:23 Dose: 5 mg Lactic Acid (Lac-Hydrin 12% Lotion (225 G)) 1 applic TOP Q8 [facility] [place] Last Admin: 07/15/17 13:30 Dose: 1 applic Metoprolol Tartrate (Lopressor) 12.5 mg PO Q12 [facility] [place] Last Admin: 07/15/17 08:22 Dose: 12.5 mg Midodrine (Proamatine) 5 mg PO BID [facility] [place] Last Admin: 07/15/17 08:24 Dose: 5 mg Ondansetron HCl (Zofran Tab) 4 mg PO Q6 PRN PRN Reason: Nausea/Vomiting Pantoprazole Sodium (Protonix Ec Tab) 40 mg PO 0630 [facility] [place] Last Admin: 07/15/17 05:58 Dose: 40 mg Sitagliptin Phosphate (Januvia) 25 mg PO DAILY [facility] [place] Last Admin: 07/15/17 09:11 Dose: 25 mg Sodium Bicarbonate (Sodium Bicarbonate Tab) 650 mg PO Q8 [facility] [place] Last Admin: 07/15/17 13:30 Dose: 650 mg - Labs Labs: 07/03/17 11:15 07/04/17 06:33 - Respiratory Exam Respiratory Exam: Clear to Ausculation Bilateral - Cardiovascular Exam Cardiovascular Exam: REGULAR RHYTHM, +S1, +S2 - Extremities Exam Extremities Exam: Normal Inspection Assessment and Plan - Assessment and Plan (Free Text) Assessment: CVA ATRIAL FLUTTER HYPERTENSION HYPERLIPIDEMIA Plan: CONTINUE ASPIRIN, ELIQUIS, METOPROLOL, ATORVASTATIN CONTINUE ACUTE REHAB FOR DISCHARGE 07/17/17
[2017-07-16] MEDS: Pantoprazole 40 mg EC Tab PO SCH (06:11)
--- NOTE | 2017-07-16 09:27 | CP.PCM.PN ---
Subjective - Date & Time of Evaluation Date of Evaluation: 07/16/17 Time of Evaluation: 08:45 - Subjective Subjective: NO COMPLAINTS Objective - Vital Signs/Intake and Output Vital Signs (last 24 hours): Temp Pulse Resp BP Pulse Ox 97.9 F 96 H 20 132/98 H 100 07/16/17 08:43 07/16/17 08:43 07/16/17 08:43 07/16/17 08:43 07/16/17 08:25 - Medications Medications: Current Medications Acetaminophen (Tylenol 325mg Tab) 650 mg PO Q6 PRN PRN Reason: pain scale 4-10 or headache. Apixaban (Eliquis) 2.5 mg PO Q12 SUKI PRN Reason: Protocol Last Admin: 07/16/17 08:15 Dose: 2.5 mg Aspirin (Aspirin Chewable) 81 mg PO DAILY [facility] [place] Last Admin: 07/16/17 08:15 Dose: 81 mg Atorvastatin Calcium (Lipitor) 40 mg PO HS [facility] [place] Last Admin: 07/15/17 21:03 Dose: 40 mg Bisacodyl (Dulcolax) 10 mg [place] HS PRN PRN Reason: Constipation Last Admin: 07/10/17 21:27 Dose: 10 mg Finasteride (Proscar) 5 mg PO DAILY [facility] [place] Last Admin: 07/16/17 08:17 Dose: 5 mg Lactic Acid (Lac-Hydrin 12% Lotion (225 G)) 1 applic TOP Q8 [facility] [place] Last Admin: 07/16/17 06:12 Dose: 1 applic Metoprolol Tartrate (Lopressor) 12.5 mg PO Q12 [facility] [place] Last Admin: 07/16/17 08:16 Dose: 12.5 mg Midodrine (Proamatine) 5 mg PO BID [facility] [place] Last Admin: 07/16/17 08:15 Dose: 5 mg Ondansetron HCl (Zofran Tab) 4 mg PO Q6 PRN PRN Reason: Nausea/Vomiting Pantoprazole Sodium (Protonix Ec Tab) 40 mg PO 0630 [facility] [place] Last Admin: 07/16/17 06:11 Dose: 40 mg Repaglinide (Prandin) 1 mg PO ACD [facility] [place] Sitagliptin Phosphate (Januvia) 25 mg PO DAILY [facility] [place] Last Admin: 07/16/17 08:16 Dose: 25 mg Sodium Bicarbonate (Sodium Bicarbonate Tab) 650 mg PO Q8 [facility] [place] Last Admin: 07/16/17 06:11 Dose: 650 mg - Labs Labs: 07/03/17 11:15 07/04/17 06:33 - Respiratory Exam Respiratory Exam: Clear to Ausculation Bilateral - Cardiovascular Exam Cardiovascular Exam: Irregular Rhythm, +S1, +S2 - Extremities Exam Extremities Exam: Normal Inspection Assessment and Plan - Assessment and Plan (Free Text) Assessment: CVA ATRIAL FLUTTER HYPERTENSION HYPERLIPIDEMIA Plan: CONTINUE ASPIRIN, ELIQUIS, ATORVASTATIN AND METOPROLOL
--- NOTE | 2017-07-16 17:46 | CP.PCM.PN ---
Subjective - Date & Time of Evaluation Date of Evaluation: 07/15/17 Time of Evaluation: 18:30 - Subjective Subjective: no acute complaints at present , generalized weakness Objective - Vital Signs/Intake and Output Vital Signs (last 24 hours): Temp Pulse Resp BP Pulse Ox 97.9 F 96 H 20 132/98 H 100 07/16/17 08:43 07/16/17 08:43 07/16/17 08:43 07/16/17 08:43 07/16/17 08:25 - Medications Medications: Current Medications Acetaminophen (Tylenol 325mg Tab) 650 mg PO Q6 PRN PRN Reason: pain scale 4-10 or headache. Apixaban (Eliquis) 2.5 mg PO Q12 SUKI PRN Reason: Protocol Last Admin: 07/16/17 08:15 Dose: 2.5 mg Aspirin (Aspirin Chewable) 81 mg PO DAILY [facility] Last Admin: 07/16/17 08:15 Dose: 81 mg Atorvastatin Calcium (Lipitor) 40 mg PO HS [facility] Last Admin: 07/15/17 21:03 Dose: 40 mg Bisacodyl (Dulcolax) 10 mg [place] HS PRN PRN Reason: Constipation Last Admin: 07/10/17 21:27 Dose: 10 mg Finasteride (Proscar) 5 mg PO DAILY [facility] Last Admin: 07/16/17 08:17 Dose: 5 mg Lactic Acid (Lac-Hydrin 12% Lotion (225 G)) 1 applic TOP Q8 [facility] Last Admin: 07/16/17 13:08 Dose: 1 applic Metoprolol Tartrate (Lopressor) 12.5 mg PO Q12 [facility] Last Admin: 07/16/17 08:16 Dose: 12.5 mg Midodrine (Proamatine) 5 mg PO BID [facility] Last Admin: 07/16/17 17:02 Dose: 5 mg Ondansetron HCl (Zofran Tab) 4 mg PO Q6 PRN PRN Reason: Nausea/Vomiting Pantoprazole Sodium (Protonix Ec Tab) 40 mg PO 0630 [facility] Last Admin: 07/16/17 06:11 Dose: 40 mg Repaglinide (Prandin) 1 mg PO ACD [facility] Last Admin: 07/16/17 17:02 Dose: 1 mg Sitagliptin Phosphate (Januvia) 25 mg PO DAILY [facility] Last Admin: 09/26/17 08:16 Dose: 25 mg Sodium Bicarbonate (Sodium Bicarbonate Tab) 650 mg PO Q8 [facility] Last Admin: 07/16/17 13:08 Dose: 650 mg - Labs Labs: 07/03/17 11:15 07/04/17 06:33 - Head Exam Head Exam: ATRAUMATIC, NORMAL INSPECTION, NORMOCEPHALIC - Eye Exam Eye Exam: EOMI, Normal appearance Pupil Exam: NORMAL ACCOMODATION, PERRL - ENT Exam ENT Exam: Mucous Membranes Moist, Normal Exam - Respiratory Exam Respiratory Exam: NORMAL BREATHING PATTERN - Cardiovascular Exam Cardiovascular Exam: REGULAR RHYTHM - GI/Abdominal Exam GI & Abdominal Exam: Normal Bowel Sounds - Rectal Exam Rectal Exam: NORMAL INSPECTION - Exam External exam: NORMAL EXTERNAL EXAM - Extremities Exam Extremities Exam: Normal Capillary Refill, Normal Inspection - Back Exam Back Exam: CVA tenderness (R) - Neurological Exam Neurological Exam: Alert, Awake Neuro motor strength exam: Left Upper Extremity: 3, Right Upper Extremity: 3, Left Lower Extremity: 3, Right Lower Extremity: 3 - Psychiatric Exam Psychiatric exam: Normal Affect - Skin Skin Exam: Normal Color Assessment and Plan (1) Syncope Status: Acute (2) CVA (cerebral vascular accident) Assessment & Plan: patient needs subacute rahab, discussion with Dr Eddie Cuellar, as patinet still with apraxia, needs assistance with dressing, transfers and gait and needs to negotiate steps at home. Son is at home but works. Recommended subacute rehab Status: Acute
--- NOTE | 2017-07-17 02:54 | PN ---
DATE: 07/16/2017 SUBJECTIVE: The patient is seen today, 07/16/2017. He is not in any cardiopulmonary distress. The patient is alert and awake. PHYSICAL EXAMINATION: VITAL SIGNS: Blood pressure 132/98, temperature 97.9, respiratory rate 20, and pulse 90. HEENT: Pupils are equal and reactive to light. Normal-appearing mucosa of the conjunctivae, oropharyngeal and nasal membrane mucosa. NECK: Supple. No JVD. No carotid bruits. No lymph node. No thyromegaly. CHEST AND LUNGS: Bilateral symmetrical expansion. Good air exchange. No rales, no rhonchi. CARDIOVASCULAR SYSTEM: PMI not localized. S1 and S2. No additional sounds. ABDOMEN: Normoactive bowel sounds. No tenderness. No organomegaly, no masses. EXTREMITIES: No cyanosis, no clubbing, no edema. CENTRAL NERVOUS SYSTEM: Alert, awake, and oriented x2. ASSESSMENT: The patient has cerebrovascular accident with left-sided hemiparesis, chronic kidney disease, obstructive uropathy, type 2 diabetes mellitus. PLAN: Continue current medications and physical therapy and occupational therapy. Speedy Martinez MD
[2017-07-17] MEDS: Pantoprazole 40 mg EC Tab PO SCH (05:50)
[2017-07-17 07:55] VITALS: PULSE 106; RESP 19; TEMP 97.1; O2SAT 94
[2017-07-17 09:00] VITALS: BP 147/83
--- NOTE | 2017-07-17 12:12 | CP.PCM.PN ---
Subjective - Date & Time of Evaluation Date of Evaluation: 07/17/17 Time of Evaluation: 11:45 - Subjective Subjective: NO CHEST PAIN OR SOB FEELS WELL Objective - Vital Signs/Intake and Output Vital Signs (last 24 hours): Temp Pulse Resp BP Pulse Ox 97.1 F L 106 H 19 147/83 94 L 07/17/17 07:55 07/17/17 08:56 07/17/17 07:55 07/17/17 08:56 07/17/17 07:55 - Medications Medications: Current Medications Acetaminophen (Tylenol 325mg Tab) 650 mg PO Q6 PRN PRN Reason: pain scale 4-10 or headache. Apixaban (Eliquis) 2.5 mg PO Q12 [facility]KI PRN Reason: Protocol Last Admin: 07/17/17 08:59 Dose: 2.5 mg Aspirin (Aspirin Chewable) 81 mg PO DAILY [facility] Last Admin: 07/17/17 08:59 Dose: 81 mg Atorvastatin Calcium (Lipitor) 40 mg PO HS [facility] Last Admin: 07/16/17 21:21 Dose: 40 mg Bisacodyl (Dulcolax) 10 mg [place] HS PRN PRN Reason: Constipation Last Admin: 07/10/17 21:27 Dose: 10 mg Finasteride (Proscar) 5 mg PO DAILY [facility] Last Admin: 07/17/17 08:59 Dose: 5 mg Lactic Acid (Lac-Hydrin 12% Lotion (225 G)) 1 applic TOP Q8 [facility] Last Admin: 07/17/17 05:50 Dose: 1 applic Metoprolol Tartrate (Lopressor) 12.5 mg PO Q12 [facility] Last Admin: 07/17/17 08:56 Dose: 12.5 mg Midodrine (Proamatine) 5 mg PO BID [facility] Last Admin: 07/17/17 08:54 Dose: 5 mg Ondansetron HCl (Zofran Tab) 4 mg PO Q6 PRN PRN Reason: Nausea/Vomiting Pantoprazole Sodium (Protonix Ec Tab) 40 mg PO 0630 [facility] Last Admin: 07/17/17 05:50 Dose: 40 mg Repaglinide (Prandin) 0.5 mg PO ACD [facility] Sitagliptin Phosphate (Januvia) 25 mg PO DAILY [facility] Last Admin: 07/17/17 09:00 Dose: 25 mg Sodium Bicarbonate (Sodium Bicarbonate Tab) 650 mg PO Q8 [facility] Last Admin: 07/17/17 05:50 Dose: 650 mg - Labs Labs: 07/03/17 11:15 07/04/17 06:33 - Respiratory Exam Respiratory Exam: Clear to Ausculation Bilateral - Cardiovascular Exam Cardiovascular Exam: Irregular Rhythm, +S1, +S2 - Extremities Exam Extremities Exam: Normal Inspection Assessment and Plan - Assessment and Plan (Free Text) Assessment: RECENT CVA ATRIAL FLUTTER HYPERTENSION HYPERLIPIDEMIA Plan: FOR DISCHARGE TODAY CONTINUE ASPIRIN, ELIQUIS, METOPROLOL AND ATORVASTATIN
[2017-07-17 14:16] LABS: MEAN CELL VOLUME 88.5 fl (80.0-94.0); MEAN CORPUSCULAR HEMOGLOBIN 28.6 pg (27.0-31.0); MEAN CORPUSCULAR HGB CONC 32.4 g/dL (33.0-37.0); RED CELL DISTRIBUTION WIDTH 16.1 % (11.5-14.5); WHITE BLOOD COUNT 6.8 K/uL (4.8-10.8)
[2017-07-17 14:27] LABS: ALB/GLOB RATIO 0.9 (1.0-2.1); BILIRUBIN,TOTAL 0.4 mg/dl (0.2-1.3); POTASSIUM 4.4 MMOL/L (3.6-5.0); TOTAL PROTEIN 8.3 G/DL (6.3-8.2)
--- NOTE | 2017-07-18 14:48 | DS ---
REASON FOR ADMISSION: This is a 72-year-old -[place] male with history of multiple medical problems, was admitted to acute rehabilitation after CVA with left-sided weakness. COURSE OF HOSPITALIZATION: The patient was admitted to acute rehab and he was cooperative to physical therapy and occupational therapy. The patient was continued on his medications. The patient had urinary retention and he had Urology consult done by Dr. Gomez. The patient was started on Flomax and he responded well. The patient also was continued on Eliquis because of AFib. FINAL DIAGNOSES: Cerebrovascular accident with left-sided weakness, atrial fibrillation with rapid ventricular rate, hypertension, and chronic kidney disease. The patient was discharged to [place] subacute rehabilitation. [facility] MD Juan
--- NOTE | 2017-07-18 17:24 | CP.PCM.PN ---
Subjective - Date & Time of Evaluation Date of Evaluation: 07/17/17 Time of Evaluation: 10:00 - Subjective Subjective: no acute complaints at present Objective - Vital Signs/Intake and Output Vital Signs (last 24 hours): Temp Pulse Resp BP Pulse Ox 97.1 F L 106 H 19 147/83 94 L 07/17/17 07:55 07/17/17 08:56 07/17/17 07:55 07/17/17 08:56 07/17/17 07:55 - Labs Labs: 07/17/17 14:08 07/17/17 14:08 - Head Exam Head Exam: ATRAUMATIC, NORMAL INSPECTION, NORMOCEPHALIC - Eye Exam Eye Exam: EOMI, Normal appearance Pupil Exam: NORMAL ACCOMODATION, PERRL - ENT Exam ENT Exam: Mucous Membranes Moist - Neck Exam Neck Exam: Normal Inspection - Respiratory Exam Respiratory Exam: Clear to Ausculation Bilateral - Cardiovascular Exam Cardiovascular Exam: REGULAR RHYTHM - GI/Abdominal Exam GI & Abdominal Exam: Normal Bowel Sounds - Exam External exam: NORMAL EXTERNAL EXAM - Back Exam Back Exam: CVA tenderness (R) - Neurological Exam Neurological Exam: Alert, Awake Neuro motor strength exam: Left Upper Extremity: 3, Right Upper Extremity: 3, Left Lower Extremity: 3, Right Lower Extremity: 3 - Psychiatric Exam Psychiatric exam: Normal Affect Assessment and Plan (1) Syncope Status: Acute (2) CVA (cerebral vascular accident) Assessment & Plan: plan for subacute rehab today to try to achieve additional goals in rehab for PT and Ot therapy, gain in transfers and ADLs Status: Acute
== END 2017-07-17 14:54 | DRG 57 ==
PROVIDERS: ADMIT Internal Medicine; ATTEND Internal Medicine
PROC: F07Z9FZ Gait Training/Functional Ambulation Treatment using Assistive, Adaptive, Supportive or Protective Equipment (ICD-10-PCS; 2017-06-18)
PROC: F08Z4FZ Home Management Treatment using Assistive, Adaptive, Supportive or Protective Equipment (ICD-10-PCS; principal; 2017-06-19)
PROC: F07M6FZ Therapeutic Exercise Treatment of Musculoskeletal System - Whole Body using Assistive, Adaptive, Supportive or Protective Equipment (ICD-10-PCS; 2017-06-19)
PROC: 0HBRXZZ Excision of Toe Nail, External Approach (ICD-10-PCS; 2017-06-26)
DX: I69.354 Hemiplegia and hemiparesis following cerebral infarction affecting left non-dominant side (principal); E11.22 Type 2 diabetes mellitus with diabetic chronic kidney disease; I48.92 Unspecified atrial flutter; E87.5 Hyperkalemia; N13.30 Unspecified hydronephrosis; N39.0 Urinary tract infection, site not specified; E78.00 Pure hypercholesterolemia, unspecified; E78.5 Hyperlipidemia, unspecified; I12.9 Hypertensive chronic kidney disease with stage 1 through stage 4 chronic kidney disease, or unspecified chronic kidney disease; N18.3 Chronic kidney disease, stage 3 (moderate); I48.0 Paroxysmal atrial fibrillation; I95.1 Orthostatic hypotension; N31.9 Neuromuscular dysfunction of bladder, unspecified; N40.1 Benign prostatic hyperplasia with lower urinary tract symptoms; Z87.891 Personal history of nicotine dependence; G89.29 Other chronic pain; M25.552 Pain in left hip; N39.43 Post-void dribbling; R11.10 Vomiting, unspecified; R42 Dizziness and giddiness; L60.3 Nail dystrophy